=== PATIENT | female | born 1945 | race Caucasian/White ===

== ENCOUNTER → 2021-06-24 12:34 | Outpatient (CLI) | payer MEDICARE, OTHER, SELFPAY ==
[2021-06-24 13:43] LABS: Add Manual Diff / Slide Review NO; Basophils Absolute Auto 0 /uL (0-100); Basophils Percent Auto 0.8 % (0-2); Eosinophils Absolute Auto 200 /uL (0-450); Eosinophils Percent Auto 3.2 % (2-4); Hematocrit 36.8 % (36-46); Hemoglobin 12.4 g/dL (12.0-16.0); Lymphocytes Absolute Auto 1000 /uL (1100-4500); Lymphocytes Percent Auto 20.1 % (25-40); Mean Corpuscular HGB Conc 33.7 % (30-36); Mean Corpuscular Hemoglobin 30.1 PG (26-34); Mean Corpuscular Volume 89.4 fL (80-100); Monocytes Absolute Auto 400 /uL (0-900); Monocytes Percent Auto 7.1 % (3-14); Neutrophils Absolute Auto 3400 /uL (1500-7000); Neutrophils Percent Auto 68.8 % (50-75); Platelet Count 205 X10^3/uL (150-400); Red Blood Cell Count 4.12 X10^6/uL (4.0-5.2); Red Cell Distribution Width 14.5 % (11.6-14.8)
[2021-06-24 13:50] LABS: Hemoglobin A1C% w Est Avg Glu 5.3 % (4.0-6.0)
[2021-06-24 14:00] LABS: Appearance Urine UA SL CLOUDY; Bilirubin Urine UA NEGATIVE (NEGATIVE); Color Urine UA YELLOW; Glucose Urine UA NEGATIVE (Negative); Ketones Urine UA NEGATIVE (NEGATIVE); Leukocyte Esterase Urine UA 2+ (NEGATIVE); Nitrite Urine UA NEGATIVE (Negative); Occult Blood Urine UA NEGATIVE (Negative); Protein Urine UA TRACE (Negative); Urobilinogen Urine UA 0.2 E.U./dL (0.2)
[2021-06-24 14:02] LABS: pH Urine UA 5.5 (4.5-8.0)
[2021-06-24 14:13] LABS: BUN Creatinine Ratio 31.4 (6-22); Blood Urea Nitrogen 22 mg/dL (7-17); Calcium 8.9 mg/dL (8.4-10.2); Carbon Dioxide 30 mmol/L (22-32); Chloride 104 mmol/L (98-107); Estimated Glomerular Filt Rate > 60.0 mL/min (>60); Glucose 104 mg/dL (80-110); HEMOLYSIS < 15 (0-50); Potassium 4.1 mmol/L (3.4-5.1); Sodium 141 mmol/L (137-145)
[2021-06-24 14:14] LABS: Bacteria Urine Many (>30); Culture Indicated Urine Specimen Cultured; RBC Urine None Seen (0-5/HPF); Squamous Epithelial Cell Urine 0-1 /HPF (0-5/HPF); WBC Urine 10-30/HPF (0-5/HPF)
== END ==
PROVIDERS: PCP Physician Assistant; Referring Provider Orthopaedic Surgery; Visit Provider Orthopaedic Surgery
DX: Z01.818 Encounter for other preprocedural examination (principal); R73.9 Hyperglycemia, unspecified; Z01.812 Encounter for preprocedural laboratory examination; N39.0 Urinary tract infection, site not specified
CPT/HCPCS: 36415; 80048; 81001; 83036; 85025; 87086; 93005

== ENCOUNTER → 2021-08-17 11:08 | Outpatient (CLI) | payer MEDICARE, OTHER, SELFPAY ==
[2021-08-17 13:37] LABS: COVID19 -Nasal RAPID Negative (Negative)
== END ==
PROVIDERS: PCP Physician Assistant; Visit Provider Family Medicine Sleep Medicine
DX: Z20.822 Contact with and (suspected) exposure to COVID-19 (principal)
CPT/HCPCS: 87635; C9803

== ENCOUNTER 2021-08-18 11:30 | Inpatient (IN) | payer MEDICARE, OTHER, SELFPAY ==
[2021-08-17 08:38] VITALS: BMI 31.1
[2021-08-18] VITALS (37 sets, daily range): BP systolic 101–158; BP diastolic 55–97; PULSE 82–152; RESP 8–28; TEMP 35.9–36.7; O2SAT 91–100; BMI 31.1
--- NOTE | 2021-08-18 | DI.RAD.S_ITS ---
PROCEDURE: XR HIP W PEL IF DONE LT 2V INDICATIONS: POST OP TECHNIQUE: AP pelvis with AP and lateral views of the left hip. COMPARISON: [facility], CR, XR PELVIS WITH LATERAL HIP LEFT, 06/24/2020, 13:18. [facility] [place], CR, XR PELVIS WITH LATERAL HIP LEFT, 06/22/2021, 13:58. [facility], CR, XR HIP W PEL IF DONE LT 2V, 08/18/2021, 16:23. FINDINGS: Bones: There are postsurgical changes status post left hip arthroplasty with removal of the previously visualized intramedullary jonathon and telescoping screw in the left femoral neck. No definite acute fractures. There is a chronic displaced lesser trochanteric fracture fragment redemonstrated. No periprosthetic fractures. The right hip demonstrates moderate axial joint space narrowing. Pelvic ring appears intact. Soft tissues: Overlying postsurgical changes are demonstrated lateral to the left hip including soft tissue gas and multiple skin laura. IMPRESSION: 1. Postsurgical changes status post left hip arthroplasty as described. Dictated by: Massimo Fulton M.D. on 08/18/2021 at 23:29 Approved by: Massimo Fulton M.D. on 08/18/2021 at 23:31
[2021-08-18] MEDS: CELECOXIB 200 MG CAPSULE PO (12:05)
[2021-08-18] MEDS: PREGABALIN 75 MG CAPSULE PO (12:05)
[2021-08-18] MEDS: ACETAMINOPHEN 325 MG TABLET 975 MG PO (12:11)
[2021-08-18] MEDS: LACTATED RINGERS 1,000 ML 42 ML IV ×4 (12:35→19:47)
[2021-08-18] MEDS: VANCOMYCIN 1,000 MG/200 ML PIGGYBACK 200 MG IV (13:12)
--- NOTE | 2021-08-18 13:39 | PM.PREOP ---
Pre-operative Note COVID-19 COVID-19 status: Negative Interval Note History & Physical reviewed/Exam performed by Physician: Yes Changes to H&P: No
--- NOTE | 2021-08-18 13:40 | P.OP_ITS ---
Operative Date/Time/Diagnoses Date of procedure: 08/18/21 Time of procedure: 14:30 Pre-op diagnosis: Failed left hip ORIF, posttraumatic left hip arthritis history of left intertrochanteric fracture Post-op diagnosis: same Procedure & Clinicians Procedure: Left total hip arthroplasty, removal of retained internal fixation with concurrent version of previous hip surgery to total hip arthroplasty. Same procedure as scheduled: Yes Indications: This is a 75-year-old with a history of a left hip fracture about 15 months ago. She was treated at an outside hospital and had a nail placed for a comminuted intertrochanteric hip fracture. She had failure of fixation with Mimi of the lag screw through her femoral head and into the acetabulum. She noted that she had had about 15 months of incapacitating left leg pain with severe left leg shortening. She is brought the operating room for total hip arthroplasty with removal of internal fixation and reconstruction as needed. Surgeon: Isabel Eddy Traffic Ii Manager: Maya Dale Anesthesia Type: General and Spinal Operative Notes Findings: Comminuted left hip fracture with severe scarring and a malunion of the proximal femur, failure of fixation with a Mimi of the lag screw through the femoral head in into the acetabulum with an acetabular defect, adequate stability, some baptism of leg length, soft bone Closure Type: primary Specimen(s): other (Cultures) Prosthetic devices, grafts, tissues, transplants, or devices: Size 52 R3 cup, 40 x 52 dual mobility acetabulum, size 15 x 190 mm readapt femoral stem, +4 by 22 Oxinium dual mobility head, Applied: drain(s) Blood products transfused: none Procedure in detail: The patient was seen in the pre-operative area, where the patient identified the left hip as the operative site and this was marked with my initials. The patient received pre-operative antibiotics and was taken to the operating room and placed on the operative table in the right lateral decubitus position after satisfactory anesthesia. A corporate director talent assessment out was performed. The left leg was prepared from the ankle to the iliac crest with ChloroPrep in the usual fashion and draped through sterile drapes. The hip was approached through an approximately 24 cm incision centered over the greater trochanter and curving gently posteriorly as it went proximally. This was carried sharply to the fascia francisca, which was divided and retracted with a self retaining retractor. The trochanteric bursa was excised with care being taken to avoid the sciatic nerve, which was identified and protected throughout the case. She had significant scarring of her underlying fascia down to the greater trochanter consistent with her previous fracture repair. A more extensive incision was made in order to allow hardware removal. Deep Gelpi retractors were placed as well as a Charnley retractor. The proximal screw was identified. Fluoroscopy was brought in in order to allow identification of the proximal jonathon with minimal soft tissue destruction over the abductors. A needle was used and placed in the proximal aspect of the femoral jonathon. Bovie cautery was then used to dissect down to the femoral jonathon. Extraction device was appli ed. The screw was loosened in order to allow removal of the proximal lag screw. Lag screw was removed without difficulty. Fluoroscopy was then used to identify the distal interlocking screw which was also removed without difficulty. I did dissect proximally and dislocate the hip prior to jonathon removal. Short external rotators were incised and the capsulomuscular flap was raised and tagged for later repair. The hip was dislocated, and then reduced during jonathon removal. The jonathon was removed without difficulty. I then used my jonathon pathway into the canal in order to further define the canal and do partial canal prep. 12 mm Reamer was easily passed as the jonathon was larger than that. I then gently reamed up to a 14. Femoral neck osteotomy performed approximately 15 mm above the lesser trochanter. Retractors were placed around the femur. The canal was opened with a box cutting osteotome, followed by a T handled reamer and a lateralizing reamer. The findings the canal in the face of severe deformity was difficult. I actually at 1 point put the Reamer back down into the canal and then specifically used a combination of a box osteotome a curette and a rongeur to dissect laterally in the trochanteric region in order to clear all the bone overlying a straight shot to the canal. There was significant bony deformity in the canal. We then carefully passed a Reamer up to a size 14 down through more traditional approach to the canal and over reamed. There was technical issues with the over Reamer fitting on the canal and removing the insertion device from the Reamer. I checked with fluoroscopy to make sure that we had adequate cortical fit and that the planned Reamer was well positioned in the canal. Retractors were placed to expose the acetabulum. The labrum and central soft tissues were removed. Reaming was performed initially going up in 2 mm increments, then 1 mm increments until good bite was obtained with an odd sized reamer. The cup 1 mm larger than the last reamer was then inserted using the appropriate anteversion guides. A trial neutral liner was placed. We plan to proceed with dual mobility because of severe soft tissue scarring and deformity. The Reamer was placed back into the femur. It was over reamed in order to allow adequate insertion of the proximal body. With a deformity in the proximal femur was felt that our goal was predominantly more distal fixation. Our initial reduction showed that she was clearly too tight and she was felt to be a little bit too long. I further reamed and placed the prosthesis down an additional 3-4 mm. I used fluoroscopy during the procedure in order to visualize the location of the stem and canal fit. The body piece of the broach had technical difficulties and we were able to get initially a trial reduction but not final trial reduction prior to final implant selection. A trial head and neck were then placed and the hip relocated and checked for leg length and stability. Fluoroscopy was used to confirmed the component position and no evidence of fracture. The patient was stable in the position of sleep, of squatting, and could be put through a range of motion with 45 degrees internal rotation without dislocation. At 90 degrees flexion, internal rotation to 60? was possible before dislocation. This was felt to be satisfactory and the appropriate components were opened, and the trials were removed. The acetabular liner was impacted into position. The final stem was then impacted into the prepared femoral canal. A brief Betadine soak was performed while trialing with head options. The hip was meticulously irrigated with normal saline. Finally the femoral head was impacted onto the stem. The acetabulum was cleared of all material and the hip relocated one final time. The hole in the greater trochanter was bone grafted and a small lateral hole from the patient's previous lag screw was bone grafted. The procedure was technically demanding due to the patient's previous fracture and malunion with grossly distorted anatomy. Extensive fluoroscopy was required as well as careful mobilization of the tissue. The capsulomuscular flap was then repaired to the greater trochanter though an awl hole using the tag sutures. The short external rotators were repaired with a nonabsorbable suture. A deep drain was placed and brought out anteriorly. The fascia francisca was closed with Vicryl. The subcutaneous layer was closed with barbed sutures and SteriStrips. A maura dressing was applied and the patient was taken to recovery having tolerated the procedure well. Complications: other (Anesthesia felt the patient was in atrial fibrillation. She was stable during surgery but we felt that she needed to be monitored overnight in the ICU and hospitalist consult was attached obtained.) Post-operative Condition: stable Disposition: ICU Plan for aftercare: The patient will be maintained on a standard total hip replacement protocol with weight bearing as tolerated and posterior hip precautions. The patient will receive Aspirin and sequential compression devices for DVT prophylaxis. The patient will be discharged home when safe for the home environment. She was felt to have new onset atrial fibrillation. It was felt she required monitoring in the ICU over night and Dr. Hall from the hospitalist service was consulted.
--- NOTE | 2021-08-18 15:00 | DI.RAD.S_ITS ---
PROCEDURE: XR HIP W PEL IF DONE LT 2V INDICATIONS: prosthesis placement TECHNIQUE: 3 view(s) of the hip acquired. COMPARISON: [facility] [place], CR, XR PELVIS WITH LATERAL HIP LEFT, 06/22/2021, 13:58. [facility], CR, XR HIP W PEL IF DONE LT 2V, 08/18/2021, 21:39. FINDINGS: Intraoperative images of the left hip arthroplasty. IMPRESSION: Intraoperative guidance provided. Dictated by: Hi Martínez M.D. on 08/19/2021 at 8:24 Approved by: Hi Martínez M.D. on 08/19/2021 at 8:24
[2021-08-18] MEDS: CEFAZOLIN 2 GM/20 ML SYRINGE IV ×3 (15:20→23:12)
[2021-08-18] MEDS: TRANEXAMIC ACID 1,000 MG VIAL 1000 MG INJ ×2 (15:25→19:56)
--- NOTE | 2021-08-18 16:22 | SUR.OPER ---
Lateral on padded OR bed. Gel axillary roll. Arms secured on padded armboard with 2 pillows supporting top arm, with tape over sheet to secure arms. Padded hip positioner braces x4 - anterior and posterior chest and pelvis. Additional gel pad used anterior pelvis. Gel pad under bottom leg from knee to foot and secured with tape over sheet.
[2021-08-18] MEDS: BUPIVACAINE LIPOSOME 266 MG/20 ML VIAL INJ (16:24)
[2021-08-18] MEDS: BUPIVACAINE 0.25% (PF) 60 ML, EPINEPHrine 0.3 MG INJ (16:42)
[2021-08-18] MEDS: SODIUM CHLORIDE IRRIG SOLUTION 250 ML, EPINEPHrine 1 MG IRR (16:46)
--- NOTE | 2021-08-18 16:58 | SUR.OPER ---
Sent specimen Left hip deep membrane for culture and sensitivity.
[2021-08-18] MEDS: SODIUM CHLORIDE IRRIG SOLUTION 250 ML, POVIDONE-IODINE SPONGE STICKS 1 APPLIC IRR (20:00)
--- NOTE | 2021-08-18 21:39 | DI.RAD.S_ITS ---
PROCEDURE: XR CHEST 1V INDICATIONS: post op TECHNIQUE: One view of the chest was acquired. COMPARISON: None. FINDINGS: Surgical changes and devices: None. Lungs and pleura: There is hyperinflation of the lungs with flattening of the hemidiaphragms compatible with COPD. No acute consolidation No pleural effusions or pneumothorax. Mediastinum: There is a suspected hiatal hernia.. Heart size is borderline enlarged. Bones and chest wall: No suspicious bony lesions. Overlying soft tissues appear unremarkable. IMPRESSION: 1. Findings compatible with COPD. No definite acute cardiopulmonary disease. Dictated by: Massimo Fulton M.D. on 08/18/2021 at 23:36 Approved by: Massimo Fulton M.D. on 08/18/2021 at 23:37
--- NOTE | 2021-08-18 21:45 | P.CONS_ITS ---
History of Present Illness Consult details Date Patient Seen: 08/18/21 Time Patient Seen: 21:45 Chief complaint: LT NORM 08/18 *OPB* Narrative: This is a 75-year-old female with anxiety, depression, GERD, hyperlipidemia, hypertension, hypothyroidism and a TIA who presents from the operating room after a prolonged left hip replacement/revision this evening. She experienced a hip fracture after a fall 15 months ago and underwent an open reduction internal fixation with surgeons at [facility] at that time. Subsequently she has had deterioration of the repair and required revision with a new hip replacement. She was in surgery for 5-6 hours today and about midway through the surgery went from sinus rhythm into atrial fibrillation with rapid shakeel tricular response. She was treated with Eugenio-Synephrine, small doses, for the last few hours of surgery due to hypotension that was thought to be anesthesia related. Her preop EKG was sinus rhythm with PACs and normal ST segment appearances. Her postop EKG today shows atrial fibrillation with a rate of [address] and T segment abnormalities suggesting lateral ischemia. The T-waves are inverted now in leads V4, V5 and V6. She is not having any chest pain and is not feeling the palpitations or tachycardia. She appears to be quite pale and anemic and has estimated blood loss of 600 mL during the surgery. Meds Home Medications and Allergies Home Medications Medication Instructions Recorded Confirmed Type amlodipine 5 mg tablet 5 mg PO DAILY 08/17/21 08/18/21 History aspirin 81 mg tablet,delayed 81 mg PO DAILY 08/17/21 08/18/21 History release atorvastatin 40 mg tablet 40 mg PO DAILY 08/17/21 08/18/21 History cetirizine 10 mg tablet (Zyrtec) 10 mg PO DAILY PRN 08/17/21 08/17/21 History escitalopram oxalate 20 mg tablet 20 mg PO DAILY 08/17/21 08/18/21 History levothyroxine 150 mcg tablet 150 mcg PO SEEINSTR 08/17/21 08/18/21 History (Synthroid) metoprolol succinate 50 mg 25 mg PO BID 08/17/21 08/18/21 History tablet,extended release 24 hr omeprazole 20 mg capsule,delayed 40 mg PO QAM 08/17/21 08/18/21 History release sumatriptan succinate 100 mg tablet 100 mg PO DAILY PRN 08/17/21 08/17/21 History Allergies Allergy/AdvReac Type Severity Reaction Status Date / Time No Known Drug Allergies Allergy Verified 08/18/21 11:41 Review of Systems Review of Systems Narrative: Positive for weakness, left hip pain, pale color Negative for fevers, chills, sweats, chest pain, palpitations, nausea, vomiting, abdominal pain, rashes, seizures, headaches, new allergies, dysuria Exam Vital Signs (past 8 hours): - 08/18/21 21:20 Temperature 97.8 F Pulse Rate 143 H Respiratory Rate 13 Blood Pressure 109/80 Pulse Oximetry 97 Oxygen Delivery Method Room Air Oxygen Flow Rate 4 Narrative Exam Narrative: She is alert and oriented x3. She appears weak but in no apparent distress Sclerae are pale and nonicteric Pupils are equally round and reactive to light and accommodation Extraocular muscles are intact Throat looks normal No lymph nodes are felt head, neck, supraclavicular area JVD is less than 6 cm No carotid bruits are heard Heart is irregularly tachycardic without murmur Lungs are clear to auscultation bilaterally Abdomen is soft, bowel sounds positive, nontender, no organomegaly Extremities have no ankle edema There is a clean dressing without signs of bleeding or infection or excessive tenderness on the left hip. Skin has no rash or jaundice Neurological exam the patient is alert and oriented x3. There is no tremor Cranial nerves 2-12 test intact Motor function appears to be intact at 3/5 throughout. Deep tender reflexes are hypoactive symmetrically. Objective Labs Result Diagrams: 08/18/21 21:40 08/18/21 21:40 [facility] Medical History Anxiety Depression Easy bruisability GERD (gastroesophageal reflux disease) HLD (hyperlipidemia) HTN (hypertension) Hypothyroidism Seasonal allergies TIA (transient ischemic attack) (02/2020) Wrist fracture (01/2019) Surgical History History of bladder surgery (2003) History of hip surgery (04/2020) Hx of bilateral cataract extraction Hx of cholecystectomy (12/2019) Social History household members: family Tobacco & Substance Use Smoking Status: Former smoker alcohol intake: former Assessment & Plan Assessment & Plan narrative: This is a 75-year-old female with anxiety, depression, GERD, hyperlipidemia, hypertension, hypothyroidism and a TIA who presents from the operating room after a prolonged left hip replacement/revision this evening. She was in surgery for 5-6 hours today and about midway through the surgery went from sinus rhythm into atrial fibrillation with rapid ventricular response. She appears to be quite pale and anemic and has estimated blood loss of 600 mL during the surgery. Cardiac ischemia, present on admission to the intensive care unit. Active. -troponin is pending. Once that returns we will discuss management with Cardiology and/or Tele ICU. -she is not a candidate for heparin due to her extensive surgery at this time. -she is not having chest pain -the EKG ischemic changes are likely related to a combination of blood loss anemia, demand ischemia of rapid ventricular response and possible pre-existing coronary artery disease. Atrial fibrillation with rapid ventricular response, present on admission to the intensive care unit. Active. -this appears to be a new phenomena precipitated by blood loss anemia and anes thesia during a prolonged hip replacement surgery. -due to mild hypotension, possible ischemia and possible anemia she is pending further interventions after discussion with Cardiology -plan echocardiogram Left hip replacement/revision on 08/18 per orthopedics, present on admission to the intensive care unit. Active. -suspect blood loss anemia with CBC pending -orthopedics following Hyperlipidemia, present on admission. Chronic. -continue atorvastatin Hypothyroidism, present on admission. Chronic. -continue levothyroxine GERD, present on admission. Chronic. -continue omeprazole Migraine headaches, present on admission. Chronic. -holding Imitrex prn pending clarification of cardiac status Depression, present on admission. Chronic. -continue escitalopram. Her daughter, Meenu Verdugo is her backup decision maker. -she is not a candidate for anticoagulation at this time after her extensive hip surgery and related blood loss. Time Spent With Patient Critical Care time: I spent a total of [] minutes of critical care time on this patient's care today; this time is exclusive of procedural time.
[2021-08-18 21:59] LABS: Hematocrit 35.3 % (36-46); Hemoglobin 11.8 g/dL (12.0-16.0); Mean Corpuscular HGB Conc 33.5 % (30-36); Mean Corpuscular Hemoglobin 29.7 PG (26-34); Mean Corpuscular Volume 88.5 fL (80-100); Red Blood Cell Count 3.98 X10^6/uL (4.0-5.2); Red Cell Distribution Width 14.3 % (11.6-14.8); White Blood Cell Count 14.3 X10^3/uL (4.5-11.0)
[2021-08-18] MEDS: dilTIAZem 5 MG/ML SDV 20 MG IV (22:01)
[2021-08-18 22:03] LABS: BUN Creatinine Ratio 24.2 (6-22); Blood Urea Nitrogen 16 mg/dL (7-17); Calcium 7.9 mg/dL (8.4-10.2); Carbon Dioxide 21 mmol/L (22-32); Chloride 104 mmol/L (98-107); Creatine Kinase 228 U/L (30-135); Estimated Glomerular Filt Rate > 60 mL/min (>60); Glucose 194 mg/dL (80-110); HEMOLYSIS 26 (0-50); Potassium 3.9 mmol/L (3.4-5.1); Sodium 136 mmol/L (137-145)
--- NOTE | 2021-08-18 22:10 | SUR.PHASEI ---
Late entry from 2120: transferred patient from OR surgical suite to ICU 231 with anesthesia and OR staff on continuous cardiac monitoring due to Afib with RVR; EBL approximately 1000; patient drowsy but arousable on transfer. Denies surgical pain, cp or SOB; report given to Christa CORTEZ in ICU. Family at bedside. Recovery completed by PACU nurse in ICU room 231 in accordance with hospital policy.
[2021-08-18 22:15] LABS: Platelet Count 210 X10^3/uL (150-400); Troponin I < 0.012 ng/mL (0.01-0.034)
[2021-08-18 22:17] LABS: CKMB % Relative Index 1.1 % (1.5-5.0); Creatine Kinase MB 2.48 ng/mL (<2.37)
[2021-08-18] MEDS: LACTATED RINGERS 1,000 ML 125 ML IV (22:32)
--- NOTE | 2021-08-18 22:32 | DI.ECHO.S_ITS ---
[place] +---------+ Hospital +---------+ : : [address] : : : : [id number] : : : : Phone: [phone]---------+ Echocardiogram Report + + :Name: LYNNE ARTHUR Study Date: 08/19/2021 Height: 68 in : :[facility] ReadingLocation: Weight: 205 lb : : Gender: Female BSA: 2.1 m2 : :: 1945 Age: 75 yrs BP: 126/72 mmHg: :Reason For Study: Atrial fibrillation : :Ordering Physician: TAMANNA, : :PAULA Verdugo Performed By: Toni Melton : :Referring: PAULA NOLEN : + + Interpretation Summary The left ventricle is normal in size. The ejection fraction is estimated to be 55-60%. The right ventricle is borderline dilated. The right ventricular systolic function is normal. There is mild mitral regurgitation. There is mild tricuspid regurgitation. Right ventricular systolic pressure is estimated to be 22 mmHg plus the clinically estimated CVP which cannot be estimated on this exam. Procedure: A two-dimensional transthoracic echocardiogram with color flow and Doppler was performed. The study quality was technically adequate. There is no prior echocardiogram noted for this patient. The patient was in atrial fibrillation with controlled ventricular rate during the exam. Left Ventricle: The left ventricle is normal in size. There is mild concentric left ventricular hypertrophy. There is no thrombus. Left ventricular systolic function is normal. The ejection fraction is estimated to be 55-60%. There are no focal wall motion abnormalities. Diastolic function could not be accurately assessed due to atrial fibrillation. Right Ventricle: The right ventricle is borderline dilated. The right ventricular systolic function is normal. Atria: The left atrium is severely dilated. The right atrium is mildly dilated. Mitral Valve: The mitral valve leaflets are slightly calcified. There is mild mitral annular calcification. There is mild mitral regurgitation. Aortic Valve: The aortic valve is normal in structure and function. The aortic valve is trileaflet. There is no aortic valve stenosis. There is trace aortic regurgitation. Tricuspid Valve: The tricuspid valve is normal. There is mild tricuspid regurgitation. Right ventricular systolic pressure is estimated to be 22 mmHg plus the clinically estimated CVP which cannot be estimated on this exam. Pulmonic Valve: The pulmonic valve is not well seen, but is grossly normal. There is no pulmonic valvular regurgitation. Great Vessels: The aortic root is normal size. The dimensions of the ascending aorta are normal. The inferior vena cava was not visualized. Pericardium/ Pleura There is no pericardial effusion. There is no pleural effusion. MMode/2D Measurements & Calculations LVIDd: 4.0 cm LVOT diam: 2.0 cm LVIDs: 2.7 cm Ao root diam: 3.2 cm FS: 33.0 % asc Aorta Diam: 3.1 cm IVSd: 1.1 cm LVPWd: 0.97 cm LV macias. diameter/BSA (cm/m^2): 1.9 LV sys. diameter/BSA (cm/m^2): 1.3 LA A2 area: 25.7 cm2 RA long axis: 5.1 cm LA A4 area: 26.0 cm2 RA area: 19.7 cm2 LA length (vol): 6.2 cm RA vol: 65.6 ml LA vol: 91.0 ml RA : 31.8 ml/m2 LA vol index: 44.0 ml/m2 TAPSE: 2.4 cm Doppler Measurements & Calculations Ao V2 max: 103.6 cm/sec LVOT Max Jaziel: 75.7 cm/sec Ao V2 mean: 70.7 cm/sec LV V1 max P.3 mmHg Ao max P.3 mmHg LV V1 VTI: 13.7 cm Ao mean P.2 mmHg CJ(I,D): 2.4 cm2 Ao V2 VTI: 17.8 cm CJ(V,D): 2.3 cm2 sev ratio: 0.77 CJ indexed to BSA (cm^2/m^2): 1.2 TR max jaziel: 235.3 cm/sec SV(LVOT): 43.2 ml TR max P.2 mmHg Reading Physician:09:13 AM
[2021-08-18] MEDS: ONDANSETRON 4 MG/2 ML INJ IV (23:07)
[2021-08-18] MEDS: DILTIAZEM 125 MG/125 ML PIGGYBACK IV (23:08)
[2021-08-18] MEDS: ASPIRIN EC 81 MG TABLET PO (23:15)
[2021-08-18] MEDS: METOPROLOL ER 50 MG TABLET 25 MG PO (23:15)
[2021-08-18] MEDS: DOCUSATE 100 MG CAPSULE PO (23:15)
[2021-08-19] VITALS (19 sets, daily range): BP systolic 106–134; BP diastolic 63–82; PULSE 79–94; RESP 9–24; TEMP 36.2–36.9; O2SAT 95–100
--- NOTE | 2021-08-19 00:05 | PM.CN.EICU ---
History of Present Illness Consult details Date Patient Seen: 08/19/21 Chief complaint: LT NORM 08/18 *OPB* Reason for consult: ICU admission Patient Location: ICU Provider location (State): [place] Narrative: Admitted from OR w. prolonged L THR w/ EBL of 600 mL, ischemic EKG changes and rapid AF. Required phenylephrine in OR. HR in 70s on diltiazem 5 mg/hr and saturating 100% on 2L NC on initial assessment. Initial Hgb 11 w/ (-) initial troponin I. PMHx: GERD, HTN, HLD, hypothyroidism. [facility] Medical History Anxiety Depression Easy bruisability GERD (gastroesophageal reflux disease) HLD (hyperlipidemia) HTN (hypertension) Hypothyroidism Seasonal allergies TIA (transient ischemic attack) (02/2020) Wrist fracture (01/2019) Surgical History History of bladder surgery (2003) History of hip surgery (04/2020) Hx of bilateral cataract extraction Hx of cholecystectomy (12/2019) Social History household members: family Smoking Status: Former smoker alcohol intake: former Current Medications Current Medications Medications: Home Medications amlodipine 5 mg tablet 5 mg PO DAILY 08/17/21 [History Confirmed 08/18/21] aspirin 81 mg tablet,delayed release 81 mg PO DAILY 08/17/21 [History Confirmed 08/18/21] atorvastatin 40 mg tablet 40 mg PO DAILY 08/17/21 [History Confirmed 08/18/21] cetirizine 10 mg tablet (Zyrtec) 10 mg PO DAILY PRN 08/17/21 [History Confirmed 08/17/21] escitalopram oxalate 20 mg tablet 20 mg PO DAILY 08/17/21 [History Confirmed 08/18/21] levothyroxine 150 mcg tablet (Synthroid) 150 mcg PO SEEINSTR 08/17/21 [History Confirmed 08/18/21] metoprolol succinate 50 mg tablet,extended release 24 hr 25 mg PO BID 08/17/21 [History Confirmed 08/18/21] omeprazole 20 mg capsule,delayed release 40 mg PO QAM 08/17/21 [History Confirmed 08/18/21] sumatriptan succinate 100 mg tablet 100 mg PO DAILY PRN 08/17/21 [History Confirmed 08/17/21] Visit Medications (administered) Generic Name Dose Route Start Last Admin Trade Name Willie PRN Reason Stop Dose Admin Acetaminophen 650 mg 08/19/21 00:00 08/19/21 00:03 Acetaminophen 325 Mg Tablet PO Not Given Q6HR ALLI Aspirin 81 mg 08/18/21 22:15 08/18/21 23:15 Aspirin Ec 81 Mg Tablet PO 81 mg BID ALLI Administration Cefazolin Sodium/Dextrose 2 gm 08/18/21 22:15 08/18/21 23:12 Cefazolin 2 Gm/20 Ml Syringe IV 08/19/21 06:16 2 gm Q8H ALLI Administration Docusate Sodium 100 mg 08/18/21 22:15 08/18/21 23:15 Docusate 100 Mg Capsule PO 100 mg BID ALLI Administration Lactated Ringer's 1,000 mls @ 42 mls/hr 08/18/21 12:34 08/18/21 19:47 Lactated Ringers IV 08/19/21 12:22 42 mls/hr NOW ONE Administration Lactated Ringer's 1,000 mls @ 125 mls/hr 08/18/21 22:15 08/18/21 22:32 Lactated Ringers IV 125 mls/hr CONT ALLI Administration DILTIAZEM 125 mg in 125 mls @ 5 mls/hr 08/18/21 22:30 08/18/21 23:08 Diltiazem 125 Mg/125 Ml-D5w IV 5 mg/hr TITRATE ALLI 5 mls/hr Administration Protocol 5 MG/HR Ibuprofen 400 mg 08/19/21 00:00 08/19/21 00:03 Ibuprofen 400 Mg Tablet PO Not Given Q6HR ALLI Metoprolol Succinate 25 mg 08/18/21 22:15 08/18/21 23:15 Metoprolol Er 50 Mg Tablet PO 25 mg BID ALLI Administration Ondansetron HCl 4 mg 08/18/21 22:15 08/18/21 23:07 Ondansetron 4 Mg/2 Ml Inj IV 4 mg Q4HR PRN Administration Nausea And Vomiting Exam Vital Signs (past 8 hours): - 08/18/21 21:20 08/18/21 21:21 08/18/21 21:30 Temperature 97.8 F Pulse Rate 143 H 124 H 131 H Respiratory Rate 13 16 11 L Blood Pressure 109/80 101/66 113/78 Pulse Oximetry 97 96 96 08/18/21 21:35 08/18/21 21:40 08/18/21 21:41 Temperature Pulse Rate 138 H 140 H 146 H Respiratory Rate 16 12 11 L Blood Pressure 140/97 H Pulse Oximetry 100 98 91 08/18/21 21:42 08/18/21 21:45 08/18/21 21:46 Temperature Pulse Rate 142 H 148 H 152 H Respiratory Rate 11 L 28 H 19 Blood Pressure 140/97 H 120/83 120/83 Pulse Oximetry 99 100 99 08/18/21 21:50 08/18/21 21:55 08/18/21 22:00 Temperature Pulse Rate 141 H 137 H 132 H Respiratory Rate 17 17 12 Blood Pressure 136/95 H 158/91 H 130/66 Pulse Oximetry 100 98 100 08/18/21 22:01 08/18/21 22:05 08/18/21 22:10 Temperature 97.9 F Pulse Rate 131 H 137 H 140 H Respiratory Rate 11 L 13 14 Blood Pressure 130/66 128/77 130/82 Pulse Oximetry 100 99 100 08/18/21 22:15 08/18/21 22:20 08/18/21 22:25 Temperature 97.1 F L Pulse Rate 136 H 133 H 132 H Respiratory Rate 19 14 13 Blood Pressure 123/63 126/59 L 123/66 Pulse Oximetry 100 95 96 08/18/21 22:30 08/18/21 22:35 08/18/21 22:40 Temperature Pulse Rate 134 H 133 H 131 H Respiratory Rate 12 12 8 L Blood Pressure 127/59 L 105/55 L 116/64 Pulse Oximetry 100 100 100 08/18/21 22:45 08/18/21 22:53 08/18/21 22:55 Temperature Pulse Rate 136 H 138 H 136 H Respiratory Rate 10 L 13 14 Blood Pressure 116/78 115/71 114/76 Pulse Oximetry 98 100 100 08/18/21 23:00 Temperature Pulse Rate 119 H Respiratory Rate 20 Blood Pressure 119/69 Pulse Oximetry 100 Oxygen Delivery Method Nasal Cannula Oxygen Flow Rate 4 Narrative Exam Narrative: sleeping comfortablu Resp Effort & Inspection: normal respiratory effort Cardio Rate: regular rate Objective Labs Result Diagrams: 08/18/21 21:40 08/18/21 21:40 Labs: Laboratory Results - last 24 hr 08/18/21 08/18/21 08/18/21 21:40 21:40 22:00 WBC 14.3 H RBC 3.98 L Hgb 11.8 L Hct 35.3 L MCV 88.5 MCH 29.7 MCHC 33.5 RDW 14.3 Plt Count 210 Sodium 136 L Potassium 3.9 Chloride 104 Carbon Dioxide 21 L BUN 16 Creatinine 0.66 Estimated GFR > 60 BUN/Creatinine Ratio 24.2 H Glucose 194 H Calcium 7.9 L Total Creatine Kinase 228 H CK-MB (CK-2) 2.48 H CK-MB (CK-2) Rel Index 1.1 L Troponin I < 0.012 Blood Type O Negative Antibody Screen Negative Assessment & Plan Assessment and plan (1) Atrial fibrillation: Status: Acute Plan: -Continue diltiazem -Follow up 2-D echo -TSH ordered (2) Acute blood loss anemia: Status: Acute Plan: -Trend (3) Hypothyroidism: Status: Acute Plan: -Awaiting TFTs (4) Status post hip replacement: Status: Acute Plan: -As per ortho
[2021-08-19] MEDS: PANTOPRAZOLE DR 40 MG TABLET PO (06:02)
[2021-08-19] MEDS: IBUPROFEN 400 MG TABLET PO ×3 (06:02→18:32)
[2021-08-19] MEDS: ACETAMINOPHEN 325 MG TABLET 650 MG PO ×3 (06:02→18:32)
[2021-08-19] MEDS: LEVOTHYROXINE 150 MCG TABLET PO (06:02)
[2021-08-19] MEDS: CEFAZOLIN 2 GM/20 ML SYRINGE IV (06:02)
[2021-08-19] MEDS: LACTATED RINGERS 1,000 ML 125 ML IV (06:04)
[2021-08-19 06:13] LABS: Add Manual Diff / Slide Review NO; Basophils Absolute Auto 0 /uL (0-100); Eosinophils Absolute Auto 0 /uL (0-450); Hematocrit 32.5 % (36-46); Hemoglobin 10.9 g/dL (12.0-16.0); Lymphocytes Absolute Auto 600 /uL (1100-4500); Lymphocytes Percent Auto 5.1 % (25-40); Mean Corpuscular HGB Conc 33.6 % (30-36); Mean Corpuscular Hemoglobin 29.6 PG (26-34); Mean Corpuscular Volume 88.1 fL (80-100); Monocytes Absolute Auto 500 /uL (0-900); Monocytes Percent Auto 4.4 % (3-14); Neutrophils Absolute Auto 10000 /uL (1500-7000); Neutrophils Percent Auto 90.5 % (50-75); Platelet Count 179 X10^3/uL (150-400); Red Blood Cell Count 3.69 X10^6/uL (4.0-5.2); Red Cell Distribution Width 14.5 % (11.6-14.8)
[2021-08-19] MEDS: ONDANSETRON 4 MG/2 ML INJ IV (06:22)
--- NOTE | 2021-08-19 06:26 | PC.NURSE ---
Patient experienced nausea and emesis immediately after receiving both doses of Ceftriaxone.
[2021-08-19 06:27] LABS: Troponin I < 0.012 ng/mL (0.01-0.034)
[2021-08-19 06:52] LABS: TSH w/ Reflex to FT4 1.07 uIU/mL (0.47-4.68)
[2021-08-19] MEDS: OXYCODONE IR 5 MG TABLET PO (08:03)
[2021-08-19] MEDS: METOPROLOL ER 50 MG TABLET 25 MG PO ×2 (08:30→20:47)
[2021-08-19] MEDS: ASPIRIN EC 81 MG TABLET PO ×2 (08:30→20:47)
[2021-08-19] MEDS: ESCITALOPRAM 10 MG TABLET 20 MG PO (08:31)
[2021-08-19] MEDS: ATORVASTATIN 20 MG TABLET 40 MG PO (08:31)
[2021-08-19] MEDS: DOCUSATE 100 MG CAPSULE PO ×2 (08:31→20:47)
--- NOTE | 2021-08-19 09:50 | PM.ICURNDS ---
- :: This patient was seen via real time interactive two-way audiovisual telecommunication. Note: Transferred to ICU for A fib w. RVR post hip replacement. On Diltiazem 5 mg/hr. TTE showed preserved LV function, borderline RV dilation, and dilated LA. HR down to high 90s and low 100s. Will continue metoprolol 25 mg XL and titrate down diltiazem infusion to maintain HR < 110. High lytes goal. Check Mg level. D/w RN and pharmacy at bedside.
[2021-08-19 10:27] LABS: Magnesium 1.8 mg/dL (1.6-2.3)
--- NOTE | 2021-08-19 10:27 | PT.IIE ---
Current Diagnoses Acute posthemorrhagic anemia (08/18/21) Hypothyroidism, unspecified (08/18/21) Unspecified atrial fibrillation (08/18/21) Unilateral post-traumatic osteoarthritis, left hip (08/18/21) Fracture of unspecified part of neck of left femur, subsequent encounter for closed fracture with malunion (08/18/21) Presence of unspecified artificial hip joint (08/18/21) Surgery Performed Operation Date: 08/18/21 13:30 Actual Procedures p Total Hip Arthroplasty, removal of internal fixation(Left) - Isabel Eddy MD Medical History (Last Reviewed 08/19/21 @ 00:07 by José Miguel Ji MD) Anxiety Depression Easy bruisability GERD (gastroesophageal reflux disease) HLD (hyperlipidemia) HTN (hypertension) Hypothyroidism Seasonal allergies TIA (transient ischemic attack) (02/2020) Wrist fracture (01/2019) Physical Therapy Inpatient Evaluation/Re-Eval M1 PT/OT-IP Prior Functional Status Start: 08/19/21 10:15 Freq: Status: Active Protocol: Document 08/19/21 10:15 BC (Rec: 08/19/21 10:26 [id number]) Medical Review Prior Functional Status Medical History Reviewed Yes Mobility and Gait Use of FWW last 15 mo due to hip fx ORIF; prior to was independent with ambulation Activities of Daily Living and IADL's Independent Prior Functional Level (Other details) Lives with dtr who can assist as needed. Dtr taking time off work at d/c Social History Household Members family Living Arrangements House Number of Floors (Floors) One Floor Number of Stairs To Enter/Railing? level Home Environment High Toilet,Walk in Shower, Ramp Home Equipment Front Wheel Walker,Straight Cane,Bedside Commode,Shower Seat without Backrest,Hand Held Shower,Preparation Supervisor Canning,Grab Bars Near Toilet,Grab Bars In Shower M2 PT-IP Current Condition Start: 08/19/21 10:15 Freq: Status: Active Protocol: Document 08/19/21 10:15 BC (Rec: 08/19/21 10:26 [id number]) Physical Therapy Current Condition Current Condition Evaluation Date 08/19/21 Treatment Diagnosis R NORM posterior; difficulty with ambulation Onset Date 08/18/21 M3 PT-IP Subjective Start: 08/19/21 10:15 Freq: Status: Active Protocol: Document 08/19/21 10:15 BC (Rec: 08/19/21 10:26 [id number]) Subjective Physical Therapy Visit Type Type Initial Evaluation Visit Start Time 09:35 Visit Stop Time 10:10 Total Visit Minutes 31 Physical Therapy Visit Comments Patient Comments Pt with good questions regarding precautions. Has been working with PT prior to sx. Patient Goals Walk without walker Therapy Pain Assessment Pain When Pain Assessed At Rest Pain Present Pain Present Pain Reported Location Left Hip Intensity 3 Scale Used Numeric (0 - 10) Description Acute M4 PT-IP Mobility and Gait Start: 08/19/21 10:15 Freq: Status: Active Protocol: Document 08/19/21 10:15 BC (Rec: 08/19/21 10:26 [id number]) PT-Bed Mobility Assessment Supine to Sit Supine to Sit Standby Assistance Sit to Supine Sit to Supine Contact Guard Assistance Scooting Scooting to Edge of Bed Standby Assistance PT-Transfer Assessment Sit to and From Stand Sit to and from Stand Standby Assistance,Contact Guard Assistance Equipment Transfer Assistive Device Gait Belt,Front Wheeled Walker Transfers Transfer Destination Bed Transfer Technique side stepping Transfer Ability Level of Assist Minimal Assistance Comments Mobility Comments STS x3 reps with CGA to SBA. Cues and education on maintaining hip prec with STS. In standing, completed lateral weight shifts and mini marching. LLE with difficulty maintaining SLS stability. Pt able to take 4 side steps along EOB bilaterally before feeling weak and light headed. Assisted back to bed. Gait Assessment Comments Gait Comments Did not attempt ambulation away from bed due to symptoms of feeling faint and difficulty keeping LLE knee extended in pre-gait activities. PT-Balance Assessment Sitting Balance and Reactions Static Sitting Balance Ability Normal Dynamic Sitting Balance Ability Normal Standing Balance and Reactions Static Standing Balance Ability Fair Dynamic Standing Balance Ability Fair Device Used FWW M5 PT-IP Objective Assessments Start: 08/19/21 10:15 Freq: Status: Active Protocol: Document 08/19/21 10:15 BC (Rec: 08/19/21 10:26 [id number]) Orientation Orientation/Cognition Level of Alertness Alert Orientation Name,Age,Birthday,Month,Date, Year,Day of Week,Place, Situation Language Function Ability No Deficits Noted Gross Range of Motion Upper Extremity ROM Assessment Within Functional Limits Lower Extremity ROM Assessment Left Impaired Impairments L hip grossly WFL withing parameters of hip precaution. Strength Upper Extremity Strength Assessment Within Functional Limits Lower Extremity Strength Assessment Left Impaired Hip 3 Knee 5 Ankle 5 Coordination Assessment Gross Coordination Gross Coordination WNL Sensation Assessment Sensation Gross Sensation WNL M6 PT-IP Treatment Start: 08/19/21 10:15 Freq: Status: Active Protocol: Document 08/19/21 10:15 BC (Rec: 08/19/21 10:26 [id number]) Physical Therapy Treatment Education Education Provided Precautions,Weight Bearing Status,Post-Op Packet,Safety Other Treatments Other Treatment Performed Education on THP and functional mobility education in terms of bed mobility, rolling, car transfers. M7 PT-IP Assessment and Plan Start: 08/19/21 10:15 Freq: Status: Active Protocol: Document 08/19/21 10:15 BC (Rec: 08/19/21 10:26 [id number]) PT Summary Assessment and Plan Potential Rehabilitation Potential Excellent Status of Condition at Evaluation Stable Summary Impairments Pain,ROM,Strength,Balance, Transfers,Gait Progress Towards Goals Progressing Toward Goals Assessment Summary Pt admitted to complete L NORM 15 mo following L hip ORIF from [facility]. The ORIF failed and she required NORM intervention. Pt states she has been using a FWW or A.D. for 15 mo due to pain and instability. She lives with her dtr in a fully accessible home (due to disabled spouse). Pt has all needed DME for mobility at home. Her dtr is going to take time off work to support her at d/c. Pt's CLOF: Requiring just SBA to CGA for bed mobility, sit to stand transfers and pre-gait activity at bedside. We did not progress to gait for several reasons including faint feeling (BP sitting 114/ 62; BP after reports of dizzy/ faint 116/50); difficulty maintaining good quad control in pre-gait WB activities, and in ICU due to telemetry needs /cardiac status. Anticipate that Pt will progress well with PT given her CLOF today. As she is able to tolerate more activity we will progress ambulation. Recommend d/c home with dtr support and OPPT . Goals Bed Mobility Goal Independent Transfer Goal Independent,Standby Assistance Gait Goal Independent,Standby Assistance Gait Distance 100 Days to Meet Goals 4 Frequency of Treatment Frequency Of Treatment Twice a Day Treatment Plan Physical Therapy Treatment Plan Bed Mobility Training,Transfer Training,Gait Training, Therapeutic Exercise,Balance Retraining,Post Op Education, Discharge Planning, Neuromuscular Re-ed, Coordination Retraining Precautions Posterior Hip Precautions No Hip Flexion > 90 degrees,No Hip Internal Rotation,No Hip Adduction Weight Bearing Status Weight Bearing Status Weight Bear as Tolerated Recommendations To Nursing Amount of Assist Needed 1 Person Assist Discharge Recommendations PT Discharge Recommendations Home with Assistance, Outpatient PT Transportation Needs at Discharge Private Vehicle
[2021-08-19] MEDS: BENZOCAINE/MENTHOL 1 LOZ PKT 1 EACH PO (10:59)
--- NOTE | 2021-08-19 11:48 | P.PN_ITS ---
Subjective Subjective Date Patient Seen: 08/19/21 Time Patient Seen: 11:49 Interval history: Patient is complaining of moderate left hip pain this morning. Tylenol and oxycodone 5 mg are helping significantly with the pain. She is currently in ICU. She notes she is lightheaded and somewhat dizzy when she is standing. She denies any new numbness or tingling. Patient underwent a left hip revision yesterday with AFib noted intraoperatively. The risky make changes on her EKG, and therefore she was transported to the ICU postoperatively. Exam Vital Signs (past 8 hours): - 08/19/21 04:00 08/19/21 04:30 08/19/21 05:00 Temperature Pulse Rate 82 83 80 Respiratory Rate 10 L 10 L 11 L Blood Pressure 129/72 120/69 126/72 Pulse Oximetry 100 100 100 08/19/21 08:00 08/19/21 10:31 Temperature 98.4 F Pulse Rate 85 Respiratory Rate 18 Blood Pressure 108/73 Pulse Oximetry 96 95 Oxygen Delivery Method Room Air Oxygen Flow Rate 4 Narrative Exam Narrative: Pleasant 75-year-old female, resting comfortably in bed, no acute distress. Dressing is clean, dry, intact. Hemovac has put out 200 cc in the last shift. Bilateral lower extremity: Motor functions are grossly intact, sensation is grossly intact to light touch, calves are soft and nontender palpation. Objective Labs Result Diagrams: 08/19/21 06:00 08/18/21 21:40 Labs: Laboratory Results - last 24 hr 08/18/21 08/18/21 08/18/21 21:40 21:40 22:00 WBC 14.3 H RBC 3.98 L Hgb 11.8 L Hct 35.3 L MCV 88.5 MCH 29.7 MCHC 33.5 RDW 14.3 Plt Count 210 Neut % (Auto) Lymph % (Auto) [place] % (Auto) Eos % (Auto) Baso % (Auto) Neut # (Auto) Lymph # (Auto) [place] # (Auto) Eos # (Auto) Baso # (Auto) Sodium 136 L Potassium 3.9 Chloride 104 Carbon Dioxide 21 L BUN 16 Creatinine 0.66 Estimated GFR > 60 BUN/Creatinine Ratio 24.2 H Glucose 194 H Calcium 7.9 L Magnesium Total Creatine Kinase 228 H CK-MB (CK-2) 2.48 H CK-MB (CK-2) Rel Index 1.1 L Troponin I < 0.012 TSH Nasal Screen MRSA (PCR) Blood Type O Negative Antibody Screen Negative 08/18/21 08/19/21 08/19/21 23:00 06:00 06:00 WBC 11.0 RBC 3.69 L Hgb 10.9 L Hct 32.5 L MCV 88.1 MCH 29.6 MCHC 33.6 RDW 14.5 Plt Count 179 Neut % (Auto) 90.5 H Lymph % (Auto) 5.1 L [place] % (Auto) 4.4 Eos % (Auto) 0.0 L Baso % (Auto) 0.0 Neut # (Auto) 77383 H Lymph # (Auto) 600 L [place] # (Auto) 500 Eos # (Auto) 0 Baso # (Auto) 0 Sodium Potassium Chloride Carbon Dioxide BUN Creatinine Estimated GFR BUN/Creatinine Ratio Glucose Calcium Magnesium Total Creatine Kinase CK-MB (CK-2) CK-MB (CK-2) Rel Index Troponin I < 0.012 TSH Nasal Screen MRSA (PCR) Negative for mrsa Blood Type Antibody Screen 08/19/21 08/19/21 06:00 06:00 WBC RBC Hgb Hct MCV MCH MCHC RDW Plt Count Neut % (Auto) Lymph % (Auto) [place] % (Auto) Eos % (Auto) Baso % (Auto) Neut # (Auto) Lymph # (Auto) [place] # (Auto) Eos # (Auto) Baso # (Auto) Sodium Potassium Chloride Carbon Dioxide BUN Creatinine Estimated GFR BUN/Creatinine Ratio Glucose Calcium Magnesium 1.8 Total Creatine Kinase CK-MB (CK-2) CK-MB (CK-2) Rel Index Troponin I TSH 1.07 Nasal Screen MRSA (PCR) Blood Type Antibody Screen [facility] Medical History Anxiety Depression Easy bruisability GERD (gastroesophageal reflux disease) HLD (hyperlipidemia) HTN (hypertension) Hypothyroidism Seasonal allergies TIA (transient ischemic attack) (02/2020) Wrist fracture (01/2019) Surgical History History of bladder surgery (2003) History of hip surgery (04/2020) Hx of bilateral cataract extraction Hx of cholecystectomy (12/2019) Social History household members: family Smoking Status: Former smoker alcohol intake: former Assessment & Plan Post-op Postoperative Procedures: Procedures Operation Date: 08/18/21 13:30 Actual Procedure Side Surgeon p Total Hip Arthroplasty, removal of internal fixation Left Isabel Eddy MD Postoperative day: 1 Postoperative status narrative: Status post left hip removal of internal fixation and conversion to a left total hip arthroplasty -(1) Atrial fibrillation: (2) Acute blood loss anemia: (3) Hypothyroidism: Postoperative plan narrative: -mobilize with physical therapy. Maintain posterior hip precautions x6 weeks. Hip abductor pillow while resting in bed, okay to remove when up in standing, or sitting in the chair. Weightbearing as tolerated with front wheel walker -aspirin 81 mg b.i.d. x6 weeks for DVT prophylaxis -continue with multimodal pain management -acute blood-loss anemia: Patient is mildly symptomatic at this time. We will continue to monitor H&H, transfusion based on ICU/hospitalist recommendation, or if the patient becomes more symptomatic -Acute AFib and hypothyroidism being monitored and treated by ICU/hospitalist team -disposition: Home likely in 2-4 days, depending on medical issues, as recommended by ICU/hospitalist team, and clearance by physical therapist in regards to her left hip
[2021-08-19] MEDS: SUMAtriptan 25 MG TABLET 100 MG PO (13:12)
--- NOTE | 2021-08-19 13:29 | PM.PN.1 ---
Subjective Subjective Interval history: Patient denies any acute complaints this morning. She reports a hx of being told she has an irregular heartbeat some time back, but denies that she was told its a fib. She endorses a hx of CVA in the fall, that was likely a fib related. She denies ever being on anticoagulation in the past, but does endorse being on antiplatelet therapy after her CVA. Exam Vital Signs (past 8 hours): - 08/19/21 08:00 08/19/21 10:31 Temperature 98.4 F Pulse Rate 85 Respiratory Rate 18 Blood Pressure 108/73 Pulse Oximetry 96 95 Oxygen Delivery Method Room Air Oxygen Flow Rate 4 Const Other: Patient sitting up in bed upon my entering the room, comfortable and in no apparent acute distress Eyes Other: No scleral icterus appreciated Resp Other: Lungs clear to auscultation bilaterally Cardio Other: RRR, with normal S1 and S2 heart sounds, no extra heart sounds or murmurs appreciated GI Other: Soft, non-distended, non-tender, bowel sounds present Skin Other: No grossly abnormal skin lesions noted Extrem Other: Palpable dorsalis pedis pulses bilaterally Objective Labs Result Diagrams: 08/19/21 06:00 08/18/21 21:40 Labs: Laboratory Results - last 24 hr 08/18/21 08/18/21 08/18/21 21:40 21:40 22:00 WBC 14.3 H RBC 3.98 L Hgb 11.8 L Hct 35.3 L MCV 88.5 MCH 29.7 MCHC 33.5 RDW 14.3 Plt Count 210 Neut % (Auto) Lymph % (Auto) [place] % (Auto) Eos % (Auto) Baso % (Auto) Neut # (Auto) Lymph # (Auto) [place] # (Auto) Eos # (Auto) Baso # (Auto) Sodium 136 L Potassium 3.9 Chloride 104 Carbon Dioxide 21 L BUN 16 Creatinine 0.66 Estimated GFR > 60 BUN/Creatinine Ratio 24.2 H Glucose 194 H Calcium 7.9 L Magnesium Total Creatine Kinase 228 H CK-MB (CK-2) 2.48 H CK-MB (CK-2) Rel Index 1.1 L Troponin I < 0.012 TSH Nasal Screen MRSA (PCR) Blood Type O Negative Antibody Screen Negative 08/18/21 08/19/21 08/19/21 23:00 06:00 06:00 WBC 11.0 RBC 3.69 L Hgb 10.9 L Hct 32.5 L MCV 88.1 MCH 29.6 MCHC 33.6 RDW 14.5 Plt Count 179 Neut % (Auto) 90.5 H Lymph % (Auto) 5.1 L [place] % (Auto) 4.4 Eos % (Auto) 0.0 L Baso % (Auto) 0.0 Neut # (Auto) 33761 H Lymph # (Auto) 600 L [place] # (Auto) 500 Eos # (Auto) 0 Baso # (Auto) 0 Sodium Potassium Chloride Carbon Dioxide BUN Creatinine Estimated GFR BUN/Creatinine Ratio Glucose Calcium Magnesium Total Creatine Kinase CK-MB (CK-2) CK-MB (CK-2) Rel Index Troponin I < 0.012 TSH Nasal Screen MRSA (PCR) Negative for mrsa Blood Type Antibody Screen 08/19/21 08/19/21 06:00 06:00 WBC RBC Hgb Hct MCV MCH MCHC RDW Plt Count Neut % (Auto) Lymph % (Auto) [place] % (Auto) Eos % (Auto) Baso % (Auto) Neut # (Auto) Lymph # (Auto) [place] # (Auto) Eos # (Auto) Baso # (Auto) Sodium Potassium Chloride Carbon Dioxide BUN Creatinine Estimated GFR BUN/Creatinine Ratio Glucose Calcium Magnesium 1.8 Total Creatine Kinase CK-MB (CK-2) CK-MB (CK-2) Rel Index Troponin I TSH 1.07 Nasal Screen MRSA (PCR) Blood Type Antibody Screen [facility] Medical History Anxiety Depression Easy bruisability GERD (gastroesophageal reflux disease) HLD (hyperlipidemia) HTN (hypertension) Hypothyroidism Seasonal allergies TIA (transient ischemic attack) (02/2020) Wrist fracture (01/2019) Surgical History History of bladder surgery (2003) History of hip surgery (04/2020) Hx of bilateral cataract extraction Hx of cholecystectomy (12/2019) Social History household members: family Smoking Status: Former smoker alcohol intake: former Assessment & Plan Assessment & Plan narrative: Assessment: 1. Atrial fibrillation with RVR, resolved, likely brought on by adrenergic state intra-operatively 2. 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 Left hip fracture status post orthopedic repair 4. Hypertension 5. Hypothyroidism 6. Depression 7. Hx of migraine headaches Plan: 1. Will discontinue IV diltiazem, as rate is controlled now on home Toprol 25 mg bid. Continue home Toprol 25 mg bid for rate control. CHADSVASc 6 (HTN, age 75, female sex, hx of CVA). The patient can be started on therapeutic anticoagulation, likely with Eliquis 5 mg bid, once orthopedics clears left hip drain with sanguinous output, and this can be done outpatient, too. The patient understands the stroke/bleeding benefit/risk. 2. Patient reports being on aspirin 81 mg daily and Plavix 75 mg daily at home, although the latter med is not listed. If she is on dual antiplatelet therapy, then recommend continuing only aspirin with Eliquis, moving forward. 3. Status post orthopedic repair, PT/OT on-board. 4. Continue home amlodipine 5 mg daily, along with Toprol. 5. Continue home levothyroxine 150 mcg daily. 6. Continue home excitalopram 20 mg daily. 7. On sumatriptan for abortive therapy outpatient. Code: Full code I have utilized all available immediate resources to obtain, update, or verify the patient's current medications. Thank you for this consult. [facility] medicine will sign-off at this time. Time Spent With Patient Critical Care time: I spent a total of [] minutes of critical care time on this patient's care today; this time is exclusive of procedural time. Quality MIPS - Admit I confirm the patient?s Advance Care Plan is present, Code status is documented, Surrogate decision maker is in patient?s record [If Yes, STOP here]: Yes
--- NOTE | 2021-08-19 13:50 | PT.IPTN ---
Current Diagnoses Acute posthemorrhagic anemia (08/18/21) Hypothyroidism, unspecified (08/18/21) Unspecified atrial fibrillation (08/18/21) Unilateral post-traumatic osteoarthritis, left hip (08/18/21) Fracture of unspecified part of neck of left femur, subsequent encounter for closed fracture with malunion (08/18/21) Presence of unspecified artificial hip joint (08/18/21) Surgery Performed Operation Date: 08/18/21 13:30 Actual Procedures p Total Hip Arthroplasty, removal of internal fixation(Left) - Isabel Eddy MD Physical Therapy Treatment Note M2 PT-IP Current Condition Start: 08/19/21 10:15 Freq: Status: Active Protocol: Document 08/19/21 10:15 BC (Rec: 08/19/21 10: BC [id number]) Physical Therapy Current Condition Current Condition Evaluation Date 08/19/21 Treatment Diagnosis R NORM posterior; difficulty with ambulation Onset Date 08/18/21 M3 PT-IP Subjective Start: 08/19/21 10:15 Freq: Status: Active Protocol: Document 08/19/21 13:33 KS (Rec: 08/19/21 14:05 KS [id number]) Subjective Physical Therapy Visit Type Type Treatment Note Visit Start Time 13:33 Visit Stop Time 13:50 Total Visit Minutes 17 Number of [employer] Visits 1 Physical Therapy Visit Comments Patient Comments Pt agreeable to exercises in bed only due to feeling unstable and shaky earlier. M4 PT-IP Mobility and Gait Start: 08/19/21 10:15 Freq: Status: Active Protocol: Document 08/19/21 13:33 KS (Rec: 08/19/21 14:05 KS [id number]) PT-Transfer Assessment Comments Mobility Comments Pt refused OOB mobility stating she just feels unstable and skaky and would like to wait to try getting out of bed until tomorrow. Pt instructed and performed 2x10 bilateral ankle pumps, quad sets, glute sets, SLR and 1x5 mini heel slides. Pt left in bed w/ all needs in reach and daughter in room. Gait Assessment Comments Gait Comments Did not attempt. M5 PT-IP Objective Assessments Start: 08/19/21 10:15 Freq: Status: Active Protocol: Document 08/19/21 10:15 BC (Rec: 08/19/21 10:26 BC [id number]) Orientation Orientation/Cognition Level of Alertness Alert Orientation Name,Age,Birthday,Month,Date, Year,Day of Week,Place, Situation Language Function Ability No Deficits Noted Gross Range of Motion Upper Extremity ROM Assessment Within Functional Limits Lower Extremity ROM Assessment Left Impaired Impairments L hip grossly WFL withing parameters of hip precaution. Strength Upper Extremity Strength Assessment Within Functional Limits Lower Extremity Strength Assessment Left Impaired Hip 3 Knee 5 Ankle 5 Coordination Assessment Gross Coordination Gross Coordination WNL Sensation Assessment Sensation Gross Sensation WNL M6 PT-IP Treatment Start: 08/19/21 10:15 Freq: Status: Active Protocol: Document 08/19/21 13:33 KS (Rec: 08/19/21 14:05 KS [id number]) Physical Therapy Treatment Exercises Exercises Ankle Pumps,Gluteal Sets,Quad Sets,Heel Slides,Straight Leg Raises Education Education Provided Precautions,Weight Bearing Status,Post-Op Packet,Safety Other Treatments Other Treatment Performed Reveiwed safety and precautions, pt recalled 2/3 ( no IR). Spoke w/ pts daughter who will be caring for pt at d /c. M7 PT-IP Assessment and Plan Start: 08/19/21 10:15 Freq: Status: Active Protocol: Document 08/19/21 13:33 KS (Rec: 08/19/21 14:05 KS [id number]) PT Summary Assessment and Plan Potential Rehabilitation Potential Excellent Status of Condition at Evaluation Stable Summary Impairments Pain,ROM,Strength,Balance, Transfers,Gait Progress Towards Goals Progressing Toward Goals Assessment Summary D/c plan depending on progress . Pt refused x2 OOB mobility stating she does not feel ready yet following instability and shaky/woozy this AM, but agreeable to try tomorrow. Able to perform LE exercises to promote blood flow and strenthening w/ good tolerance and agreeable to performing in bed this evening . Will progress as tolerated tomorrow. Anticipating pt will be able to d/c home with daughter and begin OPPT. Goals Bed Mobility Goal Independent Transfer Goal Independent,Standby Assistance Gait Goal Independent,Standby Assistance Gait Distance 100 Days to Meet Goals 4 Frequency of Treatment Frequency Of Treatment Twice a Day Treatment Plan Physical Therapy Treatment Plan Bed Mobility Training,Transfer Training,Gait Training, Therapeutic Exercise,Balance Retraining,Post Op Education, Discharge Planning, Neuromuscular Re-ed, Coordination Retraining Precautions Posterior Hip Precautions No Hip Flexion > 90 degrees,No Hip Internal Rotation,No Hip Adduction Weight Bearing Status Weight Bearing Status Weight Bear as Tolerated Recommendations To Nursing Amount of Assist Needed 1 Person Assist Discharge Recommendations PT Discharge Recommendations Home with Assistance, Outpatient PT Transportation Needs at Discharge Private Vehicle
[2021-08-19] MEDS: SODIUM CHLORIDE 0.9% FLUSH 10 ML IV (20:47)
[2021-08-20 06:00] VITALS: BP 131/63; PULSE 90; RESP 19; TEMP 37.2; O2SAT 98
[2021-08-20] MEDS: PANTOPRAZOLE DR 40 MG TABLET PO (06:03)
[2021-08-20] MEDS: ACETAMINOPHEN 325 MG TABLET 650 MG PO (06:03)
[2021-08-20] MEDS: LEVOTHYROXINE 150 MCG TABLET PO (06:03)
[2021-08-20] MEDS: IBUPROFEN 400 MG TABLET PO (06:03)
[2021-08-20 08:36] VITALS: PULSE 70; RESP 18; O2SAT 98
[2021-08-20] MEDS: ESCITALOPRAM 10 MG TABLET 20 MG PO (08:39)
[2021-08-20] MEDS: ATORVASTATIN 20 MG TABLET 40 MG PO (08:39)
[2021-08-20] MEDS: AMLODIPINE 5 MG TABLET PO (08:39)
[2021-08-20 08:40] VITALS: BP 107/55; BP 131/63; PULSE 101; PULSE 107; RESP 21; TEMP 37.5; O2SAT 95
[2021-08-20] MEDS: ASPIRIN EC 81 MG TABLET PO (08:40)
[2021-08-20] MEDS: METOPROLOL ER 50 MG TABLET 25 MG PO (08:40)
[2021-08-20] MEDS: DOCUSATE 100 MG CAPSULE PO (08:40)
[2021-08-20] MEDS: SODIUM CHLORIDE 0.9% FLUSH 10 ML IV (08:44)
[2021-08-20 09:10] VITALS: BP 111/57; PULSE 88
--- NOTE | 2021-08-20 10:09 | PT.IPTN ---
Current Diagnoses Acute posthemorrhagic anemia (08/18/21) Hypothyroidism, unspecified (08/18/21) Unspecified atrial fibrillation (08/18/21) Unilateral post-traumatic osteoarthritis, left hip (08/18/21) Fracture of unspecified part of neck of left femur, subsequent encounter for closed fracture with malunion (08/18/21) Presence of unspecified artificial hip joint (08/18/21) Surgery Performed Operation Date: 08/18/21 13:30 Actual Procedures p Total Hip Arthroplasty, removal of internal fixation(Left) - Isabel Eddy MD Physical Therapy Treatment Note M2 PT-IP Current Condition Start: 08/19/21 10:15 Freq: Status: Discharge Protocol: Document 08/19/21 10:15 BC (Rec: 08/19/21 10:26 BC [id number]) Physical Therapy Current Condition Current Condition Evaluation Date 08/19/21 Treatment Diagnosis R NORM posterior; difficulty with ambulation Onset Date 08/18/21 M3 PT-IP Subjective Start: 08/19/21 10:15 Freq: Status: Discharge Protocol: Document 08/20/21 09:44 KS (Rec: 08/20/21 13:53 KS [id number]) Subjective Physical Therapy Visit Type Type Treatment Note Visit Start Time 09:44 Visit Stop Time 10:09 Total Visit Minutes 25 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 Therapy Pain Assessment Pain When Pain Assessed During Mobility Pain Present Pain Present Pain Reported M4 PT-IP Mobility and Gait Start: 08/19/21 10:15 Freq: Status: Discharge Protocol: Document 08/20/21 09:44 KS (Rec: 08/20/21 13:53 KS [id number]) PT-Bed Mobility Assessment Supine to Sit Supine to Sit Standby Assistance Scooting Scooting to Edge of Bed Standby Assistance PT-Transfer Assessment Sit to and From Stand Sit to and from Stand Standby Assistance,Contact Guard Assistance Equipment Transfer Assistive Device Gait Belt,Front Wheeled Walker Transfers Transfer Destination Bed,Chair Transfer Technique Pt ambulated w/ FWW Transfer Ability Level of Assist Standby Assistance,Contact Guard Assistance,1 Person Assistance,Use of Upper Extremities Comments Mobility Comments Pt in bed upon arrival and agreeable to ambulate. SBA for sup<>sit and scooting EOB. SBA to CGA for sit<>stand w/ FWW. Pts BP stable throughout. Pt then ambulated ~30 ft w/ FWW CGA w/ good use of FWW and good safety awareness. She then returned to take seated rest break on EOB and reported slight wooziness, BP: 96/55 sitting and then 111/57 standing. She then ambulated additional 20 ft to chair. Able to recall 3/3 precautions . Pt left in chair w/ all needs in reach. Gait Assessment Gait Gait Assistance Required: Standby Assistance,Contact Guard Assist,1 Person Assist Distance (Feet) 30 Able to Maintain Weight Bearing Status Yes During Gait Assistive Devices Assistive Device Gait Belt,Front Wheeled Walker Gait Deviations General Gait Pattern Ataxic,Decreased Stride Length ,Decreased Feet Clearance, Flexed Trunk Factors Limiting Gait Function Factors Limiting Gait Function Decreased Activity Tolerance, Decreased Strength,Pain,Poor Balance Comments Gait Comments Pt ambulated 30 ft w/ FWW and then additional 20 ft. Quick approach to fatigue and increased pain. Stair Climbing Assessment Comments Stair Climbing Comments Did not assess, pt first reporting no stairs and then reporting threshold but not agreeable to practice stairs. PT-Balance Assessment Sitting Balance and Reactions Static Sitting Balance Ability Normal Dynamic Sitting Balance Ability Normal Standing Balance and Reactions Static Standing Balance Ability Good Dynamic Standing Balance Ability Good Device Used FWW M5 PT-IP Objective Assessments Start: 08/19/21 10:15 Freq: Status: Discharge Protocol: Document 08/19/21 10:15 (Rec: 08/19/21 10:26 [id number]) Orientation Orientation/Cognition Level of Alertness Alert Orientation Name,Age,Birthday,Month,Date, Year,Day of Week,Place, Situation Language Function Ability No Deficits Noted Gross Range of Motion Upper Extremity ROM Assessment Within Functional Limits Lower Extremity ROM Assessment Left Impaired Impairments L hip grossly WFL withing parameters of hip precaution. Strength Upper Extremity Strength Assessment Within Functional Limits Lower Extremity Strength Assessment Left Impaired Hip 3 Knee 5 Ankle 5 Coordination Assessment Gross Coordination Gross Coordination WNL Sensation Assessment Sensation Gross Sensation WNL M6 PT-IP Treatment Start: 08/19/21 10:15 Freq: Status: Discharge Protocol: Document 08/20/21 09:44 KS (Rec: 08/20/21 13:53 KS [id number]) Physical Therapy Treatment Education Education Provided Precautions,Weight Bearing Status,Post-Op Packet,Safety M7 PT-IP Assessment and Plan Start: 05/27/22 10:15 Freq: Status: Discharge Protocol: Document 08/20/21 09:44 KS (Rec: 08/20/21 13:53 KS [id number]) PT Summary Assessment and Plan Potential Rehabilitation Potential Excellent Status of Condition at Evaluation Stable Summary Impairments Pain,ROM,Strength,Balance, Transfers,Gait Progress Towards Goals Progressing Toward Goals Assessment Summary Pt showed progress with mobility and actviity toelrance today. SBA for bed mobility and SBA to CGA for ambulation and transfers w/ FWW. Low tolerance for activity due to weakness, but able to ambulated 30 ft which she states is far enough to get her inside her house. Anticipate pt will be safe to d/c home w/ daughter assisting and OPPT. Goals Bed Mobility Goal Independent Transfer Goal Independent,Standby Assistance Gait Goal Independent,Standby Assistance Gait Distance 100 Days to Meet Goals 4 Frequency of Treatment Frequency Of Treatment Twice a Day Treatment Plan Physical Therapy Treatment Plan Bed Mobility Training,Transfer Training,Gait Training, Therapeutic Exercise,Balance Retraining,Post Op Education, Discharge Planning, Neuromuscular Re-ed, Coordination Retraining Precautions Posterior Hip Precautions No Hip Flexion > 90 degrees,No Hip Internal Rotation,No Hip Adduction Weight Bearing Status Weight Bearing Status Weight Bear as Tolerated Recommendations To Nursing Amount of Assist Needed 1 Person Assist Discharge Recommendations PT Discharge Recommendations Home with Assistance, Outpatient PT Transportation Needs at Discharge Private Vehicle
--- NOTE | 2021-08-20 11:11 | PC.NURSE ---
1100 Removed [place] catheter per protocol, pt tolerated well, due to void by 1700. Bed low and locked, call light within reach, will continue to monitor.
--- NOTE | 2021-08-20 11:37 | P.DS_ITS ---
History of Present Illness History of Present Illness Date Patient Seen: 08/20/21 Time Patient Seen: 11:37 Chief complaint: Left hip pain s/p left NORM Narrative: Patient is complaining of mild left hip pain this morning which is well controlled with ibuprofen and Tylenol. She has not taken any narcotics. She is cleared by Physical therapy and hospitalist. Overall she is feeling well like to be discharged home. She denies any new numbness or tingling. Denies any lightheadedness or dizziness. Patient underwent a left hip revision with AFib noted intraoperatively.? There were ischemic changes on her EKG, and therefore she was transported to the ICU postoperatively. Discharge Providers Provider Date of admission: 08/18/21 11:30 Discharge Date: 08/20/21 Primary care physician: Lizzeth Kendall PA-C Consults: 08/18/21 06:50 Consult to Anesthesiology Routine Comment: Consulting Provider: Anesthesiologist Reason for consultation: Regional block for post operative pain control 08/18/21 22:15 Consult to Discharge Planning Routine Comment: Consult to Hospitalist Service Routine Comment: Consulting Provider: Terrence Hall Reason for consultation: new onset a fib Has provider been notified: Yes Consult to Physical Therapy Evaluate & Treat Comment: Physician Instructions: post op NORM protocol Consult to Respiratory Therapy Evaluate & Treat Comment: Physician Instructions: Evaluate and treat Discharge provider: Maya Dale PA-C Summary Hospital Course Discharge Diagnosis: -Failed left hip ORIF, posttraumatic left hip arthritis history of left intertrochanteric fracture -Atrial fibrillation with RVR, resolved, likely brought on by adrenergic state intra-operatively -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 Same procedure as scheduled: Yes Indications: This is a 75-year-old with a history of a left hip fracture about 15 months ago.? She was treated at an outside hospital and had a nail placed for a comminuted intertrochanteric hip fracture.? She had failure of fixation with Mimi of the lag screw through her femoral head and into the acetabulum.? She noted that she had had about 15 months of incapacitating left leg pain with se anibal left leg shortening.? She is brought the operating room for total hip arthroplasty with removal of internal fixation and reconstruction as needed. Surgeon: Isabel Eddy Rn Research: Maya Dale Anesthesia Type: General and Spinal Operative Notes Findings: Comminuted left hip fracture with severe scarring and a malunion of the proximal femur, failure of fixation with a Mimi of the lag screw through the femoral head in into the acetabulum with an acetabular defect, adequate stability, some buddhism of leg length, soft bone Closure Type: primary Specimen(s): other (Cultures) Prosthetic devices, grafts, tissues, transplants, or devices: Size 52 R3 cup, 40 x 52 dual mobility acetabulum, size 15 x 190 mm readapt femoral stem, +4 by 22 Oxinium dual mobility head, Applied: drain(s) Blood products transfused: none The patient will be maintained on a standard total hip replacement protocol with weight bearing as tolerated and posterior hip precautions. The patient will receive Eliquis and Aspirin and sequential compression devices for DVT prophylaxis. She was felt to have new onset atrial fibrillation intraoperatively.? It was felt she required monitoring in the ICU over night and Dr. Hall? from the hospitalist service was consulted. Patient was relatively stable in the ICU and has been working with physical therapy. Overall she is feeling well like to be discharged home today. Status at Discharge Cognitive/behavioral status at discharge: oriented Functional status at discharge: uses cane/walker Overall status at discharge: patient is progressing back to baseline Exam Vital Signs (past 8 hours): - 08/20/21 06:00 08/20/21 08:36 08/20/21 08:40 Temperature 98.9 F 99.5 F Pulse Rate 90 70 107 H Respiratory Rate 19 18 21 Blood Pressure 131/63 107/55 L Pulse Oximetry 98 98 95 08/20/21 09:10 Temperature Pulse Rate 88 Respiratory Rate Blood Pressure 111/57 L Pulse Oximetry Oxygen Delivery Method Room Air Oxygen Flow Rate 0 Narrative Exam Narrative: Pleasant 75-year-old female, resting comfortably in her chair, no acute distress. Dressing demonstrates some distal serosanguineous drainage. No surrounding erythema or induration. Her Hemovac has put out 90 cc today, okay to be discharged today. Bilateral lower extremity: Motor functions are grossly intact, sensation is grossly intact to light touch, calves are soft and nontender to palpation. Objective Labs Result Diagrams: 08/19/21 06:00 08/18/21 21:40 [facility] Medical History Anxiety Depression Easy bruisability GERD (gastroesophageal reflux disease) HLD (hyperlipidemia) HTN (hypertension) Hypothyroidism Seasonal allergies TIA (transient ischemic attack) (02/2020) Wrist fracture (01/2019) Surgical History History of bladder surgery (2003) History of hip surgery (04/2020) Hx of bilateral cataract extraction Hx of cholecystectomy (12/2019) Social History household members: family Smoking Status: Former smoker alcohol intake: former Discharge Assessment & Plan Assessment and Plan Assessment: -Failed left hip ORIF, posttraumatic left hip arthritis history of left intertrochanteric fracture -Atrial fibrillation with RVR, resolved, likely brought on by adrenergic state intra-operatively -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 She is not requiring narcotics and requests no narcotics for home -mobilize with PT. Maintain posterior hip precautions x6 weeks. Use hip abductors in pillow when in bed. Weightbearing as tolerated with front wheel walker -Eliquis 5 mg plus aspirin 81 mg daily for DVT prophylaxis and cardiac stent. We will discontinue the Plavix, per hospitalist recommendation. -discontinue Hemovac drain today -follow-up with PCP/moving consultant for AFib intraoperatively, as well as hypertension hypothyroidism depression and headaches -DC home today when cleared by PT Discharge Plan Discharge Plan Patient Disposition: Home Discharge orders & Medications Prescriptions: New acetaminophen 500 mg capsule 500 mg PO Q4H MDD Max 3000 mg per day PRN (Reason: fever or pain) Qty: 90 0RF ibuprofen 400 mg Tablet 400 mg PO Q6HR MDD Max 2400 mg per day PRN (Reason: Pain/inflammation) Qty: 90 0RF Continued atorvastatin 40 mg Tablet 40 mg PO DAILY 0RF metoprolol succinate 50 mg Tablet Extended Release 24 Hr 25 mg PO BID 0RF sumatriptan succinate 100 mg Tablet 100 mg PO DAILY PRN (Reason: Headaches) 0RF Rx Instructions: take 1 tab at onset of headache; if no relief, may repeat 1 tab after at least 2 hrs; max = 2 tabs/24 hrs amlodipine 5 mg Tablet 5 mg PO DAILY 0RF aspirin [Aspir-81] 81 mg Tablet,Delayed Release (Dr/Ec) 81 mg PO DAILY 0RF levothyroxine [Synthroid] 150 mcg Tablet 150 mcg PO SEEINSTR 0RF Rx Instructions: Pt takes 5 days, then off x 2 days omeprazole 20 mg Capsule,Delayed Release(Dr/Ec) 40 mg PO QAM 0RF escitalopram oxalate 20 mg Tablet 20 mg PO DAILY 0RF cetirizine [Zyrtec] 10 mg Tablet 10 mg PO DAILY PRN (Reason: Seasonal allergies) 0RF Follow up/Referrals: Lizzeth Kendall PA-C [Primary Care Provider] - (Follow-up with primary care regarding new onset AFib noted intraoperatively. We have also changed due to Eliquis 5 mg plus aspirin 81 mg daily for blood clot prevention an your cardiac stents, instead of Plavix.) Isabel Eddy MD [Physician] - (10-14 days for postoperative visit) Diet/Activity/Treatments Diet: Diet as Tolerated Other treatments: Dressing/Wound care: -Keep Marizol dressing in place until postoperative follow-up office visit. Okay to cut off Marizol tail when battery pump pack stops working. -Okay to shower. Keep wound out of direct water stream. No soaking or submerging until all the scabs fall off (approximately 6 weeks). -Please call the office if dressing becomes wet, soiled, or saturated. Activities: -Maintain posterior hip precautions x6 weeks. -use hip abduction pillow when in bed. -Weight-bearing as tolerated. Use front wheeled walker, and progress to cane when safe. -Continue with home exercises as directed by your physical therapist. -Elevate ?toes above the nose if you have significant swelling in your lower leg. (A wedge pillow is easiest.) -Ice your incision as needed for pain/inflammation/swelling. Protect your skin with a folded pillowcase. Follow-up: -Follow-up with your surgeon or PA in the office in 10-14 days after surgery. -Follow-up with your surgeon 6 weeks postoperatively. Call the office if you have chest pain, shortness of breath, significant swelling that will not resolve with elevating, fever over 101?, significantly worsening pain. [facility]: [phone] Skin/Wound/Dressing Care Report to your healthcare provider any signs of infection, such as:: chills, fever, night sweats, unusual drainage and unusual redness Visit Report/Discharge Packet Instructions: DI for Hip Replacement Stand Alone Forms: Surgery Discharge Discharge Data Primary Care Provider: Lizzeth Kendall
--- NOTE | 2021-08-20 12:08 | CM.DANOTE ---
Initial Discharge Plan Assessment: Case received, EMR reviewed and met with patient. Maya RIVERS has just seen patient and she is ready for discharge home. Introduced self and role. 75 year old female s/p L NORM on 08/18/[address] Isabel Eddy PCP: Dr Lizzeth Kendall and surgeon Dr Isabel Eddy Payer: Medicare, for Life Patient came in for planned surgery for Lt NORM on 08/18/21. Intraoperatively, patient experienced A Fib and postoperatively was transferred to ICU for observation. She has progressed and is now ready for discharge. Patient lives with her daughter in [place] and will have her daughter available for assistance. She has DME in home which she had used previously. Saw patient today and in room the ortho PA Maya was discussing plan for discharge home today unto care of daughter; therapies have cleared for this plan. P: Patient wishes to return home with her previous home arrangement. She will see Dr Eddy for postoperative appointment and she will attend outpatient PT based on Dr Eddy's directions. Family will transport home to [place]. Discharge Planning/Care Management CM Discharge Assessment Start: 08/20/21 12:04 Freq: Status: Active Protocol: Document 08/20/21 12:05 (Rec: 08/20/21 12:08 [id number]) Discharge Planning Assessment Assigned Senior Windows Systems Administrator Monse Ireland RN/ARMIDAP Advance Directives? Yes Advance Directives on File No History Provided By Patient,Family Member Prior Living Arrangements House Household Members family Type of transporation used prior to Relies on Others admit Independent with ADL's No: with some assistance due to postop Is patient alert and oriented? Yes Needs Assistance With Bathing,Meal Prep,Home Chores / Shopping Caregiver for Another No Community Services used prior to Physical Therapy admission: DME Already Rented / Owned Elevated Toilet Seat,FWW / Walker Patient/Family Preference OP PT Therapy Barriers to Discharge No Discharge Plan Home Community Services Physical Therapy Referrals Initiated None needed Next Review Type Continued Stay Review Pre-Anesthesia Assessment Start: 08/17/21 08:38 Freq: Status: Complete Protocol: Document 08/17/21 08:38 CAB (Rec: 08/17/21 09:28 CAB [id number]) Pre-Anesthesia Assessment Patient Information Reviewed Via Phone Assessment Assessment Completed With Patient Diagnostic Results BMP/CMP,CBC,Urinalysis Comment Labs/ECG @ 06/24/21, COVID screen @ 08/17/21 Primary Care Provider Lizzeth Kendall Medical Clearance Received Yes Specialist Seen Orthopedist Comment PCP clearance scanned to record Primary Language Czech Audit Reviewer Required No Height 172.72 cm Weight 92.986 kg Body Mass Index (BMI) 31.1 Hearing Ability Normal Visual Assist Magnifying Glass Dentition Type Teeth, Natural Present,Teeth, Missing Barriers to Learning None Hx Anesthesia Reactions No Hx Family Anesthesia Reaction No Hx Malignant Hyperthermia No Hx Blood Transfusions Yes: s/p hip surgery '21 Hx Blood Transfusion Reaction No Anesthesia Review Requested No Water Rights Specialist No alcohol intake former Smoking Status Former smoker how long ago did patient quit smoking Quit 35-40 years ago Substance Use Type does not use Pain Present Pain Reported Musculoskeletal Symptoms Abnormal Gait,Back Pain, Difficulty Walking,Joint Pain, Neck Pain History of Falling (Recent or History of Yes ) Patient is completely paralyzed or No completely immobile Prosthesis or Orthotic Device Front Wheel Walker Mental Status Oriented to own ability Is patient on oxygen? No Does patient have CORREA/SOB No Hx Sleep Apnea No Currently Taking a Beta Cesar Yes: Metoprolol Hx Chest Pain No Hx SOB No Hx Syncope or Dizziness No Anti-Coagulant Therapy No Has a Store Person No Cardiac Testing No Hx Pacemaker/ICD No Pacemaker Rep Required? No Cardiac Clearance Received Not Applicable Diet Type At Home Regular dysphagia No Gastrointestinal Symptoms Reflux Bladder Pattern Incontinent Urinary Catheter Present No Hx Urinary Self Catheterization No Diabetes No Patient No Lactating No Hx Drug Resistant Organism No Presence of External or Internal Medical Yes: Left hip, bilat eye IOLs, Devices bladder sling Have you had any close contact with No someone diagnosed with COVID-19? Received a COVID vaccine? Yes Received all doses? Yes Marital Status / Lives With family Prior Living Arrangements House Number of Floors (Floors) One Floor Support System Child/Children Does the Patient Have Assistance After Yes: Daughter lives with Surgery patient, will assist w/care Patient Discharge Plan Description Return Home Comment Pt advised 1-2 day length of stay per surgeon Feels Safe in Current Environment Yes Been Physically Hurt or Threatened By a No Person in Current Environment Do you have thoughts of harming yourself None or others? Are you currently considering suicide? No Do you have a plan to hurt yourself or No Plan others? Do You Have Any Spiritual Beliefs That No May Affect Your HC Choices? Do You Have Any Cultural Practices That No May Affect Your HC Choices? Comment Jainism Who Can We Speak to About Patient's Care Family, friends Identifying Code for Release of Patient Declines to issue Information Health Care Proxy/Next of Kin Meenu (daughter) Health Care Proxy Emergency Contact Name Meenu (daughter) Emergency Contact Advance Directives? No Power of Weir Fisher No PAC Instructions Do not shave/clip surgical site,Durable medical equipment ,Medications to take/avoid, Nasal antibiotic,No ETOH/ petroleum product on skin DOS, NPO,Post-op transportation,Pre -surgical wash,Sturdy shoes/ comfortable clothes,Do not bring valuables and remove jewelry
== END 2021-08-20 13:29 | disposition home or self-care (01) | DRG 470 ==
LOC: OR 11:32 → AC 13:44 → ICU 19:55
PROVIDERS: Anesthesiology; Family Medicine; Internal Medicine Critical Care Medicine; Internal Medicine Pulmonary Disease; Admitting Provider Orthopaedic Surgery; PCP Physician Assistant; Referring Provider Orthopaedic Surgery; Visit Provider Orthopaedic Surgery
PROC: 0SRB0JZ Replacement of Left Hip Joint with Synthetic Substitute, Open Approach (ICD-10-PCS; CPT 27130; principal; 2021-08-18 13:30)
DX: M16.52 Unilateral post-traumatic osteoarthritis, left hip (principal); S72.122 Displaced fracture of lesser trochanter of left femur; I48.91 Unspecified atrial fibrillation; E78.5 Hyperlipidemia, unspecified; E03.9 Hypothyroidism, unspecified; K21.9 Gastro-esophageal reflux disease without esophagitis; F32.A Depression, unspecified; I10 Essential (primary) hypertension; G43.909 Migraine, unspecified, not intractable, without status migrainosus; F41.9 Anxiety disorder, unspecified; W19.XXXS Unspecified fall, sequela; Z20.822 Contact with and (suspected) exposure to COVID-19; Z86.73 Personal history of transient ischemic attack (TIA), and cerebral infarction without residual deficits; Z87.891 Personal history of nicotine dependence
CPT/HCPCS: 36415; 71045; 73502; 80048; 82550; 82553; 82962; 83735; 84443; 84484; 85025; 85027; 86850; 86900; 86901; 87070; 87075; 87205; 87635; 87797; 93005; 93306; 94762; 97110; 97116; 97161; 97530; C1776; C9803; C9290; J0171; J0690; J1100; J1170; J2250; J2405; J2704; J3010

== ENCOUNTER 2022-07-31 08:23 | Emergency (ER) | payer MEDICARE, OTHER, SELFPAY ==
[2021-08-18 23:52] VITALS: BMI 31.1
[2022-07-31] VITALS (18 sets, daily range): BP systolic 106–164; BP diastolic 61–111; PULSE 84–145; RESP 15–23; TEMP 36.9; O2SAT 91–99; BMI 34.9
--- NOTE | 2022-07-31 08:32 | DI.RAD.S_ITS ---
PROCEDURE: XR CHEST 1V INDICATIONS: chest pain TECHNIQUE: One view of the chest was acquired. COMPARISON: [facility], CR, XR CHEST 1 VIEW, 05/27/2022, 12:35. FINDINGS: Surgical changes and devices: None. Lungs and pleura: Lungs are clear. No pleural effusions or pneumothorax. Mediastinum: Mediastinal contours appear normal. Heart size is enlarged. Bones and chest wall: No suspicious bony lesions. Overlying soft tissues appear unremarkable. IMPRESSION: No acute pulmonary process. Dictated by: Aydee Zambrano M.D. on 07/31/2022 at 8:52 Approved by: Aydee Zambrano M.D. on 07/31/2022 at 8:53
--- NOTE | 2022-07-31 08:32 | ED.ARRPALP ---
HPI - Arrhythmia/Palpitations General Chief Complaint: Arrhythmia/Palpitations Stated Complaint: dizzy Time Seen by Provider: 07/31/22 08:25 History of Present Illness HPI narrative: Patient is a 76-year-old female history of chronic atrial fibrillation, hypertension, hyperlipidemia, hypothyroid presents today with dizziness and weakness. She reports that she is had an ongoing headache for awhile she does get migraine headaches this is not worsening headache. This morning she tried to get up and just felt like her legs were weak kind of fell right back into bed but no injury from her fall she did not fall to the ground. Called EMS. EMS found that her heart rate was in the 170s. She was given 500 cc bolus which did help some. Patient was recently admitted to [facility] unsure if she is still on her Eliquis or not sounds as though she had an EGD and a colonoscopy there she does not report any bleeding but is overall poor historian. She is found to be in AFib with RVR rate in the 140s she says that she never feels it she thinks that headache and weakness might be related to ratio fibrillation. She denies any palpitations chest pain she feels a little bit dizzy. No numbness tingling or weakness abdominal pain nausea or vomiting. She is not had any fever or chills. She said she was feeling well yesterday. [facility] records have been requested Related Data Home Medications Medication Instructions Recorded Confirmed amlodipine 5 mg tablet 5 mg PO DAILY 08/17/21 08/18/21 aspirin 81 mg tablet,delayed 81 mg PO DAILY 08/17/21 08/18/21 release atorvastatin 40 mg tablet 40 mg PO DAILY 08/17/21 08/18/21 cetirizine 10 mg tablet (Zyrtec) 10 mg PO DAILY PRN Seasonal 08/17/21 08/17/21 allergies escitalopram oxalate 20 mg tablet 20 mg PO DAILY 08/17/21 08/18/21 levothyroxine 150 mcg tablet 150 mcg PO SEEINSTR 08/17/21 08/18/21 (Synthroid) metoprolol succinate 50 mg 25 mg PO BID 08/17/21 08/18/21 tablet,extended release 24 hr omeprazole 20 mg capsule,delayed 40 mg PO QAM 08/17/21 08/18/21 release sumatriptan succinate 100 mg tablet 100 mg PO DAILY PRN Headaches 08/17/21 08/17/21 Previous Rx's Medication Instructions Recorded acetaminophen 500 mg capsule 500 mg PO Q4H PRN fever or pain 08/20/21 #90 caps ibuprofen 400 mg tablet 400 mg PO Q6HR PRN 08/20/21 Pain/inflammation #90 tabs nitrofurantoin 100 mg PO Q12H 7 days #14 caps 07/31/22 monohydrate/macrocrystals 100 mg capsule (Macrobid) Allergies Allergy/AdvReac Type Severity Reaction Status Date / Time ceftriaxone AdvReac Vomiting Verified 08/19/21 07:25 Review of Systems Review of Systems ROS Unobtainable: All systems reviewed & are unremarkable except as noted in HPI and below Patient History Medical History Anxiety Depression Easy bruisability GERD (gastroesophageal reflux disease) HLD (hyperlipidemia) HTN (hypertension) Hypothyroidism Seasonal allergies TIA (transient ischemic attack) (02/2020) Wrist fracture (01/2019) Surgical History History of bladder surgery (2003) History of hip surgery (04/2020) Hx of bilateral cataract extraction Hx of cholecystectomy (12/2019) Social History household members: family Smoking Status: Former smoker alcohol intake: former Smoking Status: Former smoker Substance Use Type: does not use Exam Initial Vital Signs Initial Vital Signs: Vital Signs Pulse Rate 125 H 07/31/22 08:26 Pulse Oximetry 95 07/31/22 08:26 GENERAL: Alert well-appearing 76-year-old and in no acute distress. HEENT: Head atraumatic,EOMI, pupils reactive, face symmetric, moist mucous membranes CARDIOVASCULAR: Irregularly irregular tachycardic RESPIRATORY: Breath sounds equal bilaterally, no wheezes rales or rhonchi. ABDOMEN: Soft, nontender. Normoactive bowel sounds all 4 quadrants. No guarding or rebound. EXTREMITIES: Normal range of motion, no clubbing or edema. Neurovascularly intact NEUROLOGICAL: Alert and oriented x4.Normal gait and speech. Cranial nerves II through XII grossly intact. Good [id number], good [id number], strength equal bilaterally, no dysarthria or aphasia, sensation in tact to soft touch bilaterally, no visual changes, no facial droop SKIN: Warm, dry, no laceration, no petechiae, no rashes or lesions. Course Orders Ordered: Discontinued Medications Diltiazem HCl (Diltiazem 5 Mg/Ml Sdv) 10 mg IV NOW ONE Stop: 07/31/22 08:33 Last Admin: 07/31/22 08:56 Dose: 10 mg Documented By: JOSS Diltiazem HCl (Diltiazem 5 Mg/Ml Sdv) 10 mg IV NOW ONE Stop: 07/31/22 09:54 Last Admin: 07/31/22 10:31 Dose: Not Given Documented By: JOSS Metoprolol Succinate (Metoprolol Er 50 Mg Tablet) 50 mg PO NOW ONE Stop: 07/31/22 11:50 Last Admin: 07/31/22 12:16 Dose: 50 mg Documented By: JOSS Vital Signs Vital signs: Vital Signs - 8 hr 07/31/22 08:39 07/31/22 08:26 07/31/22 08:56 Temperature 98.4 F Pulse Rate 145 H 125 H 135 H Respiratory Rate 20 Blood Pressure 115/76 118/86 Pulse Oximetry 99 95 Oxygen Delivery Method Room Air 07/31/22 10:31 07/31/22 09:25 07/31/22 09:30 Temperature Pulse Rate 88 104 H Respiratory Rate 22 Blood Pressure 118/62 Pulse Oximetry Oxygen Delivery Method 07/31/22 09:30 07/31/22 09:45 07/31/22 09:45 Temperature Pulse Rate 84 86 Respiratory Rate 20 19 Blood Pressure 106/61 Pulse Oximetry 93 94 Oxygen Delivery Method Room Air 07/31/22 10:05 07/31/22 10:05 07/31/22 10:16 Temperature Pulse Rate 94 H 90 Respiratory Rate 20 21 Blood Pressure 164/73 H Pulse Oximetry 97 94 Oxygen Delivery Method 07/31/22 10:16 07/31/22 10:30 07/31/22 10:30 Temperature Pulse Rate 89 Respiratory Rate 19 Blood Pressure 132/78 126/65 Pulse Oximetry 95 Oxygen Delivery Method 07/31/22 10:45 07/31/22 10:45 07/31/22 11:00 Temperature Pulse Rate 87 Respiratory Rate 18 Blood Pressure 120/78 127/73 Pulse Oximetry 91 Oxygen Delivery Method 07/31/22 11:00 07/31/22 11:15 07/31/22 11:15 Temperature Pulse Rate 84 91 H Respiratory Rate 15 22 Blood Pressure 144/77 H Pulse Oximetry 93 96 Oxygen Delivery Method Room Air 07/31/22 11:24 07/31/22 11:24 07/31/22 11:40 Temperature Pulse Rate 103 H Respiratory Rate 22 Blood Pressure 132/78 154/78 H Pulse Oximetry 94 Oxygen Delivery Method 07/31/22 11:40 07/31/22 11:45 07/31/22 11:45 Temperature Pulse Rate 98 H 90 Respiratory Rate 21 23 Blood Pressure 153/76 H Pulse Oximetry 94 96 Oxygen Delivery Method 07/31/22 12:16 Temperature Pulse Rate 88 Respiratory Rate Blood Pressure 153/82 H Pulse Oximetry Oxygen Delivery Method MDM - Arrhythmia/Palpitations Lab Data 07/31/22 08:33 07/31/22 08:33 Labs: Lab Results 07/31/22 07/31/22 07/31/22 Range/Units 08:33 08:33 08:33 WBC 11.6 H (4.5-11.0) X10^3/uL RBC 4.67 (4.0-5.2) X10^6/uL Hgb 13.0 (12.0-16.0) g/dL Hct 39.2 (36-46) % MCV 84.1 (80-100) fL MCH 27.8 (26-34) PG MCHC 33.1 (30-36) % RDW 26.6 H (11.6-14.8) % Plt Count 174 (150-400) X10^3/uL Neut % (Auto) Not Reportable Lymph % (Auto) Not Reportable [place] % (Auto) Not Reportable Eos % (Auto) Not Reportable Baso % (Auto) Not Reportable Lymph # (Auto) Not Reportable [place] # (Auto) Not Reportable Baso # (Auto) Not Reportable Total Counted 100 Seg Neutrophils % 82.0 H (38-70) % Lymphocytes % (Manual) 10.0 L (25-45) % Monocytes % (Manual) 8.0 (2-11) % Neutrophils # (Manual) 9512 H (9544-1686) /uL RBC Morphology See below Poikilocytosis 1+ H Anisocytosis 2+ H PT 14.6 H (10.1-12.7) SECONDS INR 1.3 (0.9-1.3) APTT 26 (26-36) SECONDS Sodium 133 L (137-145) mmol/L Potassium 3.6 (3.4-5.1) mmol/L Chloride 103 (98-107) mmol/L Carbon Dioxide 22 (22-32) mmol/L BUN 14 (7-17) mg/dL Creatinine 0.78 (0.52-1.04) mg/dL Estimated GFR > 60 (>60) mL/min BUN/Creatinine Ratio 17.9 (6-22) Glucose 127 H (80-110) mg/dL Calcium 8.4 (8.4-10.2) mg/dL Total Bilirubin 2.2 H (0.2-1.3) mg/dL AST 16 (14-36) IU/L ALT 15 (<35) IU/L Alkaline Phosphatase 88 (38-126) U/L Total Creatine Kinase 21 L (30-135) U/L CK-MB (CK-2) TNP CK-MB (CK-2) Rel Index TNP Troponin I < 0.012 (0.01-0.034) ng/mL NT-Pro-B Natriuret Pep 2230 H (<450) pg/mL Total Protein 6.8 (6.3-8.2) g/dL Albumin 3.6 (3.5-5.0) g/dL Globulin 3.2 (1.7-4.1) g/dL Albumin/Globulin Ratio 1.1 (1.0-2.8) Lipase 55 (23-300) U/L Urine Color Urine Appearance Urine pH (4.5-8.0) Ur Specific [place] (1.000-1.035) Urine Protein (Negative) Urine Glucose (UA) (Negative) g/dL Urine Ketones (NEGATIVE) Urine Occult Blood (Negative) Urine Nitrate (Negative) Urine Bilirubin (NEGATIVE) Urine Urobilinogen (0.2) E.U./dL Ur Leukocyte Esterase (NEGATIVE) Urine RBC (0-5/HPF) Urine WBC (0-5/HPF) Ur Squamous Epith Cells (0-5/HPF) Urine Bacteria (None) Ur Culture Indicated? SARS-CoV-2 (PCR) (Negative) 07/31/22 07/31/22 Range/Units 08:37 11:27 WBC (4.5-11.0) X10^3/uL RBC (4.0-5.2) X10^6/uL Hgb (12.0-16.0) g/dL Hct (36-46) % MCV (80-100) fL MCH (26-34) PG MCHC (30-36) % RDW (11.6-14.8) % Plt Count (150-400) X10^3/uL Neut % (Auto) Lymph % (Auto) [place] % (Auto) Eos % (Auto) Baso % (Auto) Lymph # (Auto) [place] # (Auto) Baso # (Auto) Total Counted Seg Neutrophils % (38-70) % Lymphocytes % (Manual) (25-45) % Monocytes % (Manual) (2-11) % Neutrophils # (Manual) (3026-3944) /uL RBC Morphology Poikilocytosis Anisocytosis PT (10.1-12.7) SECONDS INR (0.9-1.3) APTT (26-36) SECONDS Sodium (137-145) mmol/L Potassium (3.4-5.1) mmol/L Chloride (98-107) mmol/L Carbon Dioxide (22-32) mmol/L BUN (7-17) mg/dL Creatinine (0.52-1.04) mg/dL Estimated GFR (>60) mL/min BUN/Creatinine Ratio (6-22) Glucose (80-110) mg/dL Calcium (8.4-10.2) mg/dL Total Bilirubin (0.2-1.3) mg/dL AST (14-36) IU/L ALT (<35) IU/L Alkaline Phosphatase (38-126) U/L Total Creatine Kinase (30-135) U/L CK-MB (CK-2) CK-MB (CK-2) Rel Index Troponin I (0.01-0.034) ng/mL NT-Pro-B Natriuret Pep (<450) pg/mL Total Protein (6.3-8.2) g/dL Albumin (3.5-5.0) g/dL Globulin (1.7-4.1) g/dL Albumin/Globulin Ratio (1.0-2.8) Lipase (23-300) U/L Urine Color [place] Urine Appearance Cloudy Urine pH 6.0 (4.5-8.0) Ur Specific [place] >=1.030 H (1.000-1.035) Urine Protein 1+ H (Negative) Urine Glucose (UA) Negative (Negative) g/dL Urine Ketones Trace H (NEGATIVE) Urine Occult Blood 1+ H (Negative) Urine Nitrate Positive H (Negative) Urine Bilirubin Negative (NEGATIVE) Urine Urobilinogen 2.0 H (0.2) E.U./dL Ur Leukocyte Esterase 1+ H (NEGATIVE) Urine RBC 1-5/hpf (0-5/HPF) Urine WBC 5-10/hpf H (0-5/HPF) Ur Squamous Epith Cells 1-5 /hpf (0-5/HPF) Urine Bacteria Many (>30) H (None) Ur Culture Indicated? Specimen cultured SARS-CoV-2 (PCR) Negative (Negative) Imaging Data Chest x-ray: Radiologist's Impresson: PROCEDURE:? XR CHEST 1V ? INDICATIONS:? chest pain ? TECHNIQUE:? One view of the chest was acquired.? ? COMPARISON:? [facility], , XR CHEST 1 VIEW, 05/27/2022, 12:35. ? FINDINGS:? ? Surgical changes and devices:? None.? ? Lungs and pleura:? Lungs are clear.? No pleural effusions or pneumothorax.? ? Mediastinum:? Mediastinal contours appear normal.? Heart size is enlarged. ? Bones and chest wall:? No suspicious bony lesions.? Overlying soft tissues appear unremarkable.? ? IMPRESSION:? No acute pulmonary process. ? ? Dictated by: Aydee Zambrano M.D. on 07/31/2022 at 8:52 ? CT scan - head: Radiologist's Impresson: PROCEDURE:? CT HEAD/BRAIN WO CON ? INDICATIONS:? fall weakness ? TECHNIQUE:? Noncontrast 4.5 mm thick angled axial sections acquired from the foramen magnum to the vertex, with coronal and sagittal reformats.? For radiation dose reduction, the following was used:? automated exposure control, adjustment of mA and/or kV according to patient size.? ? COMPARISON:? None. ? FINDINGS:? Image quality:? Excellent.? ? CSF spaces:? Basal cisterns are patent.? No extra-axial fluid collections.? Ventricles are normal in size and shape.? ? Brain:? No midline shift.? No intracranial masses or hemorrhage.? Vyas-white matter interface is normal.? Moderate cerebral and cerebellar volume loss with multifocal white matter chronic ischemic change noted.? Atherosclerotic calcification noted associated with cavernous segments of both internal carotid arteries. ? Skull and face:? Calvarium and visualized facial bones are intact, without suspicious lesions.? Bilateral intraocular lens replacements noted.? Incidental hyperostosis frontalis interna noted. ? Sinuses:? Right maxillary sinus air-fluid ? IMPRESSION:? ? Atrophy and ischemic change intracranial hemorrhage or mass effect.? ? Incidental air-fluid level right maxillary sinus could reflect acute sinusitis ? ? ? Approved by: Cachorro García M.D. on 07/31/2022 at 9:27? CT scan - chest: Radiologist's Impresson: PROCEDURE:? CT ANGIO CHEST PE PROTOCOL ? INDICATIONS:? short of breath ? TECHNIQUE:? After the administration of intravenous contrast, 2 mm thick sections acquired from the pulmonary apices to the posterior costophrenic angles.? 3-dimensional maximum intensity projection (MIP) coronal and sagittal reformats were then acquired through the thorax.? For radiation dose reduction, the following was used:? automated exposure control, adjustment of mA and/or kV according to patient size.? ? COMPARISON:? None. ? FINDINGS:? Image quality:? Excellent.? ? Pulmonary arteries:? Pulmonary arteries are normal in size, and demonstrate no intraluminal filling defects to suggest central pulmonary embolism.? ? Lungs and pleura:? Focal consolidative radiopacities are present within the medial aspect of the left lower lobe.? There is mild bilateral dependent atelectasis at the lung bases. ? Mediastinum:? Heart size is normal, without pericardial effusion.? No mediastinal or hilar adenopathy.? Thoracic aorta is normal in caliber and enhancement.? Esophagus is normal in caliber.? There is a large hiatal hernia. ? Bones and chest wall:? No suspicious bony lesions.? Ribs and thoracic spine appear intact throughout.? Thyroid gland is unremarkable.? No axillary or supraclavicular adenopathy.? ? Abdomen:? Visualized upper abdominal solid organs appear normal in the early arterial phase of enhancement.? ? IMPRESSION:? ? 1. No acute pulmonary embolus. ? 2. Focal consolidative radiopacities within the left lower lobe.? Differential considerations include aspiration/infection and neoplasm.? Short interval follow-up to resolution is recommended. ? 3. Large hiatal hernia.? ? ? Dictated by: Arianna Rutherford M.D. on 07/31/2022 at 11:43 ? ? Approved by: Arianna Rutherford M.D. on 07/31/2022 at 11:49 ? ECG Data Interpretation: Atrial fibrillation rate [address] changes MDM Narrative Medical decision making narrative: Patient is 76-year-old female history of atrial fibrillation recent admission for anemia at [facility] no longer on Eliquis presents today with generalized weakness. She says that her legs kind of gave out on her. She denies chest pain or palpitation but upon further questioning actually does report that she might be short of breath. She is in AFib with RVR heart rate quickly improves with 10 mg of diltiazem. BNP is noted to be elevated 2200. She reports that she does not take her furosemide 20 mg daily as directed because she does not like urinating all day. She has mild leukocytosis of 11 she is afebrile. She did recently travel to [place] and has not been on Eliquis turn for possible pulmonary embolism CT angio did not show any PE or evidence of congestive heart failure. Urinalysis is positive nitrites leukocytes and many bacteria. No evidence of sepsis she is afebrile without hypotension will treat her with antibiotics. Patient ambulated without difficulty now. Able to treat as outpatient Discharge Plan Departure Patient Disposition: Home Clinical Impression: Acute UTI, Atrial fibrillation, Congestive heart failure Instructions: DI for Atrial Fibrillation, DI for Urinary Tract Infection (UTI) Activity Restrictions/Additional Instructions: *You have been diagnosed with UTI, atrial fibrillation, congestive heart *What to do: At this time you do have a bladder infection which likely causing your weakness. Please start antibiotics today trying get 2 doses in today if possible *Continue to take medications as directed Macrobid 100 mg twice a day for 7 days--> [facility] Furosemide 20 mg once a day for 2-3 days *Follow up with your primary care provider in 2-3 days or call [phone] *Return to ER if you should have increasing confusion, chest pain shortness of breath, or any new, worsening or concerning symptoms Prescriptions: New nitrofurantoin monohyd/m-cryst [Macrobid] 100 mg capsule 100 mg PO Q12H 7 Days Qty: 14 0RF Rx Instructions: must administer with a meal/food No Action atorvastatin 40 mg Tablet 40 mg PO DAILY metoprolol succinate 50 mg Tablet Extended Release 24 Hr 25 mg PO BID sumatriptan succinate 100 mg Tablet 100 mg PO DAILY PRN (Reason: Headaches) Rx Instructions: take 1 tab at onset of headache; if no relief, may repeat 1 tab after at least 2 hrs; max = 2 tabs/24 hrs amlodipine 5 mg Tablet 5 mg PO DAILY aspirin 81 mg Tablet,Delayed Release (Dr/Ec) 81 mg PO DAILY levothyroxine [Synthroid] 150 mcg Tablet 150 mcg PO SEEINSTR Rx Instructions: Pt takes 5 days, then off x 2 days omeprazole 20 mg Capsule,Delayed Release(Dr/Ec) 40 mg PO QAM escitalopram oxalate 20 mg Tablet 20 mg PO DAILY cetirizine [Zyrtec] 10 mg Tablet 10 mg PO DAILY PRN (Reason: Seasonal allergies) acetaminophen 500 mg capsule 500 mg PO Q4H MDD Max 3000 mg per day PRN (Reason: fever or pain) Qty: 90 0RF ibuprofen 400 mg Tablet 400 mg PO Q6HR MDD Max 2400 mg per day PRN (Reason: Pain/inflammation) Qty: 90 0RF Referrals: Lizzeth Kendall PA-C [Primary Care Provider] - Stand Alone Forms: Patient Portal/API
[2022-07-31 08:50] LABS: Add Manual Diff / Slide Review YES; Hematocrit 39.2 % (36-46); Mean Corpuscular HGB Conc 33.1 % (30-36); Mean Corpuscular Hemoglobin 27.8 PG (26-34); Mean Corpuscular Volume 84.1 fL (80-100); Platelet Count 174 X10^3/uL (150-400); Red Blood Cell Count 4.67 X10^6/uL (4.0-5.2); Red Cell Distribution Width 26.6 % (11.6-14.8); White Blood Cell Count 11.6 X10^3/uL (4.5-11.0)
[2022-07-31] MEDS: dilTIAZem 5 MG/ML SDV 10 MG IV (08:56)
[2022-07-31 08:57] LABS: INR 1.3 (0.9-1.3); Prothrombin Time 14.6 SECONDS (10.1-12.7)
[2022-07-31 08:57] LABS: COVID19 -Nasal RAPID Negative (Negative)
[2022-07-31 09:00] LABS: PTT Partial Thromboplastin Tim 26 SECONDS (26-36)
[2022-07-31 09:06] LABS: Neutrophils Absolute Manual 9512 /uL (3000-5900); Total Cells Counted 100
[2022-07-31 09:07] LABS: Anisocytosis 2+; Poikilocytosis 1+
[2022-07-31 09:33] LABS: NT-proBNP (BNP-Adult 18+) 2230 pg/mL (<450); Troponin I < 0.012 ng/mL (0.01-0.034)
[2022-07-31 09:46] LABS: Alanine Aminotransferase 15 IU/L (<35); Albumin 3.6 g/dL (3.5-5.0); Albumin Globulin Ratio 1.1 (1.0-2.8); Alkaline Phosphatase 88 U/L (38-126); Aspartate Aminotransferase 16 IU/L (14-36); BUN Creatinine Ratio 17.9 (6-22); Bilirubin Total 2.2 mg/dL (0.2-1.3); Blood Urea Nitrogen 14 mg/dL (7-17); Calcium 8.4 mg/dL (8.4-10.2); Carbon Dioxide 22 mmol/L (22-32); Chloride 103 mmol/L (98-107); Estimated Glomerular Filt Rate > 60 mL/min (>60); Globulin 3.2 g/dL (1.7-4.1); Glucose 127 mg/dL (80-110); Lipase 55 U/L (23-300); Potassium 3.6 mmol/L (3.4-5.1); Sodium 133 mmol/L (137-145); Total Protein 6.8 g/dL (6.3-8.2)
--- NOTE | 2022-07-31 09:53 | DI.CT.S_ITS ---
PROCEDURE: CT HEAD/BRAIN WO CON INDICATIONS: fall weakness TECHNIQUE: Noncontrast 4.5 mm thick angled axial sections acquired from the foramen magnum to the vertex, with coronal and sagittal reformats. For radiation dose reduction, the following was used: automated exposure control, adjustment of mA and/or kV according to patient size. COMPARISON: None. FINDINGS: Image quality: Excellent. CSF spaces: Basal cisterns are patent. No extra-axial fluid collections. Ventricles are normal in size and shape. Brain: No midline shift. No intracranial masses or hemorrhage. Vyas-white matter interface is normal. Moderate cerebral and cerebellar volume loss with multifocal white matter chronic ischemic change noted. Atherosclerotic calcification noted associated with cavernous segments of both internal carotid arteries. Skull and face: Calvarium and visualized facial bones are intact, without suspicious lesions. Bilateral intraocular lens replacements noted. Incidental hyperostosis frontalis interna noted. Sinuses: Right maxillary sinus air-fluid IMPRESSION: Atrophy and ischemic change intracranial hemorrhage or mass effect. Incidental air-fluid level right maxillary sinus could reflect acute sinusitis Approved by: Cachorro García M.D. on 07/31/2022 at 9:27
[2022-07-31 10:14] LABS: Creatine Kinase 21 U/L (30-135); HEMOLYSIS 17 (0-50)
--- NOTE | 2022-07-31 11:22 | DI.CT.S_ITS ---
PROCEDURE: CT ANGIO CHEST PE PROTOCOL INDICATIONS: short of breath TECHNIQUE: After the administration of intravenous contrast, 2 mm thick sections acquired from the pulmonary apices to the posterior costophrenic angles. 3-dimensional maximum intensity projection (MIP) coronal and sagittal reformats were then acquired through the thorax. For radiation dose reduction, the following was used: automated exposure control, adjustment of mA and/or kV according to patient size. COMPARISON: None. FINDINGS: Image quality: Excellent. Pulmonary arteries: Pulmonary arteries are normal in size, and demonstrate no intraluminal filling defects to suggest central pulmonary embolism. Lungs and pleura: Focal consolidative radiopacities are present within the medial aspect of the left lower lobe. There is mild bilateral dependent atelectasis at the lung bases. Mediastinum: Heart size is normal, without pericardial effusion. No mediastinal or hilar adenopathy. Thoracic aorta is normal in caliber and enhancement. Esophagus is normal in caliber. There is a large hiatal hernia. Bones and chest wall: No suspicious bony lesions. Ribs and thoracic spine appear intact throughout. Thyroid gland is unremarkable. No axillary or supraclavicular adenopathy. Abdomen: Visualized upper abdominal solid organs appear normal in the early arterial phase of enhancement. IMPRESSION: 1. No acute pulmonary embolus. 2. Focal consolidative radiopacities within the left lower lobe. Differential considerations include aspiration/infection and neoplasm. Short interval follow-up to resolution is recommended. 3. Large hiatal hernia. Dictated by: Arianna Rutherford M.D. on 07/31/2022 at 11:43 Approved by: Arianna Rutherford M.D. on 07/31/2022 at 11:49
[2022-07-31 12:04] LABS: Appearance Urine UA CLOUDY; Bilirubin Urine UA NEGATIVE (NEGATIVE); Color Urine UA ORANGE; Glucose Urine UA NEGATIVE (Negative); Ketones Urine UA TRACE (NEGATIVE); Leukocyte Esterase Urine UA 1+ (NEGATIVE); Nitrite Urine UA POSITIVE (Negative); Occult Blood Urine UA 1+ (Negative); Protein Urine UA 1+ (Negative); Specific Gravity Urine UA >=1.030 (1.000-1.035)
[2022-07-31 12:08] LABS: Bacteria Urine Many (>30); Culture Indicated Urine Specimen Cultured; RBC Urine 1-5/HPF (0-5/HPF); Squamous Epithelial Cell Urine 1-5 /HPF (0-5/HPF); WBC Urine 5-10/HPF (0-5/HPF)
[2022-07-31] MEDS: METOPROLOL ER 50 MG TABLET PO (12:16)
== END 2022-07-31 12:45 | disposition home or self-care (01) ==
PROVIDERS: Emergency Provider Emergency Medicine; PCP Physician Assistant
DX: N39.0 Urinary tract infection, site not specified (principal); I48.91 Unspecified atrial fibrillation; I50.9 Heart failure, unspecified
CPT/HCPCS: 36415; 70450; 71045; 71275; 80053; 81001; 82550; 83690; 83880; 84484; 85007; 85025; 85610; 85730; 87077; 87086; 87186; 87635; 93005; 99285; C9803; Q9967

== ENCOUNTER 2022-08-03 08:13 | Inpatient (IN) | payer MEDICARE, OTHER, SELFPAY ==
[2021-08-18 23:52] VITALS: BMI 31.1
[2022-08-03] VITALS (35 sets, daily range): BP systolic 117–163; BP diastolic 67–100; PULSE 94–156; RESP 14–36; TEMP 36.9–37.8; O2SAT 90–97; BMI 33.4; BMI 33.0
--- NOTE | 2022-08-03 08:36 | DI.RAD.S_ITS ---
PROCEDURE: XR KNEE RT 3V INDICATIONS: fall/pain TECHNIQUE: 3 views of the knee were acquired. COMPARISON: None. FINDINGS: Bones: No fractures or dislocations. No suspicious bony lesions. Tricompartmental arthritic change most severe medially. Soft tissues: No joint effusion. No suspicious soft tissue calcifications. IMPRESSION: No visualized acute fracture or dislocation. However, if clinical concern and/or pain persist, short interval imaging followup in 7-10 days is recommended, as occult injury cannot be definitively excluded. Dictated by: Aydee Zambrano M.D. on 08/03/2022 at 9:28 Approved by: Aydee Zambrano M.D. on 08/03/2022 at 9:31
--- NOTE | 2022-08-03 08:39 | ED_ITS ---
HPI - Fall General Chief Complaint: Fall Stated Complaint: gen weakness/ GLF Time Seen by Provider: 08/03/22 08:30 Source: patient Mode of arrival: EMS History of Present Illness HPI Narrative: Patient brought in by ambulance from home for complaints right knee pain and generalized weakness. Patient was trying to feed her dog and was leaning over and lost her balance and landed on her right knee on the linoleum. Denies any other injuries or pain. No head injury pain no neck back pelvis hips arms spine pain from the fall this morning. Patient has history of chronic atrial fibrillation. She is on baby aspirin only. Patient seen here 3 days ago and placed on antibiotics for UTI. Patient states and bike has made her nauseous. Unable to eat or drink. She feels dehydrated. Heart rate noted. I did review chart from 3 days ago. Patient arrived here in atrial fibrillation and received Cardizem IV which improved significantly her AFib with RVR. Denies any cough cold congestion. No fever or chills. Patient was sent home on Macrobid. Culture sensitivity has returned. E coli positive. No resistance on provided sensitivity. Patient denies any chest pain or palpitations or dyspnea Related Data Home Medications Medication Instructions Recorded Confirmed amlodipine 5 mg tablet 5 mg PO DAILY 08/17/21 08/03/22 aspirin 81 mg tablet,delayed 81 mg PO DAILY 08/17/21 08/03/22 release atorvastatin 40 mg tablet 40 mg PO DAILY 08/17/21 08/03/22 cetirizine 10 mg tablet (Zyrtec) 10 mg PO DAILY PRN Seasonal 08/17/21 08/03/22 allergies escitalopram oxalate 20 mg tablet 20 mg PO DAILY 08/17/21 08/03/22 omeprazole 20 mg capsule,delayed 40 mg PO QAM 08/17/21 08/03/22 release sumatriptan succinate 100 mg tablet 100 mg PO DAILY PRN Headaches 08/17/21 08/03/22 Previous Rx's Medication Instructions Recorded acetaminophen 500 mg capsule 500 mg PO Q4H PRN fever or pain 08/20/21 #90 caps apixaban 5 mg tablet (Eliquis) 5 mg PO BID #60 tabs 08/06/22 furosemide 40 mg tablet 40 mg PO DAILY #30 tabs 08/06/22 levothyroxine 75 mcg tablet 175 mcg PO DAILY@0600 #30 tabs 08/06/22 (Synthroid) metoprolol succinate 50 mg 100 mg PO BID #60 tabs 08/06/22 tablet,extended release 24 hr potassium chloride 20 mEq 20 meq PO DAILY #30 tabs 08/06/22 tablet,extended release Allergies Allergy/AdvReac Type Severity Reaction Status Date / Time sulfamethoxazole AdvReac Intermediate Nausea Verified 08/04/22 14:51 [From Bactrim] trimethoprim [From Bactrim] AdvReac Intermediate Nausea Verified 08/04/22 14:51 Review of Systems Review of Systems Narrative: GENERAL: negative chills, positive fatigue, malaise, negative fever, sweats. HEENT: negative sinus pain, ear pain, sore throat RESPIRATORY: negative dyspnea, cough CARDIOVASCULAR: negative chest pain, palpitations GASTROINTESTINAL: Positive nausea, negative vomiting, abdominal pain : negative dysuria, positive frequency, negative hematuria MUSCULOSKELETAL: Positive muscle or bony pain SKIN: negative rash, skin lesions NEUROLOGIC: negative weakness, numbness ROS Unobtainable: All systems reviewed & are unremarkable except as noted in HPI and below Patient History Medical History Anxiety Depression Easy bruisability GERD (gastroesophageal reflux disease) HLD (hyperlipidemia) HTN (hypertension) Hypothyroidism Seasonal allergies TIA (transient ischemic attack) (02/2020) Wrist fracture (01/2019) Surgical History History of bladder surgery (2003) History of hip surgery (04/2020) Hx of bilateral cataract extraction Hx of cholecystectomy (12/2019) Social History household members: family Smoking Status: Former smoker alcohol intake: former Smoking Status: Former smoker tobacco type: cigarettes alcohol intake frequency: 0-2 drinks per day Substance Use Type: does not use Exam Narrative Exam Narrative: GENERAL: in no distress, not toxic not dyspneic HEAD: Normocephalic. EYES: Pupils equal round ENT: Mucous membranes moist. NECK: Trachea midline. CARDIOVASCULAR: Tachycardia with irregular irregular rate and rhythm without murmurs RESPIRATORY: Clear to auscultation. Breath sounds equal bilaterally. No wheezes, rales, or rhonchi. GASTROINTESTINAL: Abdomen soft, non-tender EXTREMITIES: No gross deformities. Examination right lower extremity nontender knee no bruising edema. Able to fully flex and extend at the knee without diffi culty. No gross deformity. BACK: No flank tenderness. NEURO: AOx4. SKIN: Warm and dry PSYCH: Not anxious, is cooperative Initial Vital Signs Initial Vital Signs: Vital Signs Temperature 98.4 F 08/03/22 08:22 Pulse Rate 154 H 08/03/22 08:22 Respiratory Rate 20 08/03/22 08:22 Blood Pressure 153/98 H 08/03/22 08:22 Pulse Oximetry 96 08/03/22 08:22 Oxygen Delivery Method Room Air 08/03/22 08:22 Course Orders Ordered: Discontinued Medications Acetaminophen (Acetaminophen 325 Mg Tablet) 650 mg PO Q6H PRN PRN Reason: Fever/Mild Pain (1-3) Last Admin: 08/04/22 02:16 Dose: 650 mg Documented By: NESSA Amlodipine Besylate (Amlodipine 5 Mg Tablet) 5 mg PO DAILY [facility] Last Admin: 08/06/22 08:40 Dose: 5 mg Documented By: Admin: 08/05/22 08:45 Dose: 5 mg Documented By: Admin: 08/04/22 08:58 Dose: 5 mg Documented By: CHARLENE Apixaban (Apixaban 5 Mg Tablet) 5 mg PO BID [facility] Last Admin: 08/06/22 08:40 Dose: 5 mg Documented By: Admin: 08/05/22 20:51 Dose: 5 mg Documented By: Aspirin (Aspirin 81 Mg Chew Tab) 324 mg PO NOW ONE Stop: 08/03/22 08:30 Last Admin: 08/03/22 08:57 Dose: Not Given Documented By: RENZO Aspirin (Aspirin Ec 81 Mg Tablet) 81 mg PO DAILY [facility] Last Admin: 08/06/22 08:40 Dose: 81 mg Documented By: Admin: 08/05/22 08:44 Dose: 81 mg Documented By: Admin: 08/04/22 08:59 Dose: 81 mg Documented By: CHARLENE Atorvastatin Calcium (Atorvastatin 20 Mg Tablet) 40 mg PO BEDTIME [facility] Last Admin: 08/05/22 20:51 Dose: 40 mg Documented By: Admin: 08/04/22 22:12 Dose: 40 mg Documented By: Admin: 08/03/22 20:13 Dose: 40 mg Documented By: NESSA Digoxin (Digoxin 500 Mcg/2 Ml Ampul) 500 mcg IV NOW ONE Stop: 08/05/22 12:05 Last Admin: 08/05/22 12:22 Dose: 500 mcg Documented By: Diltiazem HCl (Diltiazem 5 Mg/Ml Sdv) 10 mg IV NOW ONE Stop: 08/03/22 08:39 Last Admin: 08/03/22 08:57 Dose: 10 mg Documented By: RENZO Diltiazem HCl (Diltiazem Cd 180 Mg Cap) 180 mg PO NOW ONE Stop: 08/03/22 13:10 Last Admin: 08/03/22 13:21 Dose: 180 mg Documented By: KB Enoxaparin Sodium (Enoxaparin 40 Mg/0.4 Ml Syringe) 40 mg SUBCUT DAILY [facility] Last Admin: 08/05/22 08:45 Dose: 40 mg Documented By: Admin: 08/04/22 08:57 Dose: 40 mg Documented By: CHARLENE Furosemide (Furosemide 40 Mg/4 Ml Vial) 20 mg IV DAILY [facility] Last Admin: 08/03/22 18:27 Dose: 20 mg Documented By: BELA Furosemide (Furosemide 20 Mg/2 Ml Vial) 20 mg IV DAILY [facility] Last Admin: 08/06/22 08:40 Dose: 20 mg Documented By: Admin: 08/05/22 08:45 Dose: 20 mg Documented By: Admin: 08/04/22 10:56 Dose: 20 mg Documented By: Sodium Chloride (Normal Saline 0.9%) 1,000 mls @ 1,000 mls/hr IV BOLUS ONE Stop: 08/03/22 09:36 Last Infusion: 08/03/22 10:02 Dose: 0 mls/hr Documented By: Admin: 08/03/22 08:56 Dose: 1,000 mls/hr Documented By: RENZO DILTIAZEM (Diltiazem 125 Mg/125 Ml-D5w) 125 mg in 125 mls @ 5 mls/hr IV TITRATE ALLI; Protocol Last Admin: 08/04/22 01:17 Dose: 15 mg/hr, 15 mls/hr Documented By: Titration: 08/04/22 01:17 Dose: 15 mg/hr, 15 mls/hr Documented By: Titration: 08/04/22 01:02 Dose: 15 mg/hr, 15 mls/hr Documented By: Titration: 08/03/22 19:47 Dose: 10 mg/hr, 10 mls/hr Documented By: Titration: 08/03/22 18:02 Dose: 15 mg/hr, 15 mls/hr Documented By: Titration: 08/03/22 16:42 Dose: 10 mg/hr, 10 mls/hr Documented By: Titration: 08/03/22 16:10 Dose: 5 mg/hr, 5 mls/hr Documented By: Admin: 08/03/22 15:17 Dose: 5 mg/hr, 5 mls/hr Documented By: RENZO Levofloxacin (Levaquin) 750 mg in 150 mls @ 100 mls/hr IV Q24H ALLI Stop: 08/06/22 15:44 Last Infusion: 08/03/22 19:47 Dose: 0 mls/hr Documented By: Admin: 08/03/22 16:37 Dose: 100 mls/hr Documented By: BELA Sodium Chloride (Normal Saline 0.9%) 1,000 mls @ 100 mls/hr IV CONT ALLI Stop: 08/04/22 03:44 Last Infusion: 08/03/22 19:47 Dose: 0 mls/hr Documented By: Infusion: 08/03/22 16:34 Dose: 100 mls/hr Documented By: Admin: 08/03/22 15:58 Dose: 100 mls/hr Documented By: RENZO Amiodarone HCl/Dextrose (Nexterone) 150 mg in 100 mls @ 600 mls/hr IV NOW ONE; Protocol Stop: 08/04/22 07:31 Last Admin: 08/04/22 07:58 Dose: 600 mls/hr Documented By: CHARLENE Amiodarone HCl/Dextrose (Nexterone) 360 mg in 200 mls @ 33.333 mls/hr IV NOW ONE; Protocol Stop: 08/04/22 13:21 Last Admin: 08/04/22 08:23 Dose: 33.333 mls/hr, 33.33 mls/hr Documented By: CHARLENE Amiodarone HCl/Dextrose (Nexterone) 360 mg in 200 mls @ 16.7 mls/hr IV CONT ALLI; Protocol Stop: 08/05/22 01:29 Last Admin: 08/04/22 14:03 Dose: 16.7 mls/hr, 16.7 mls/hr Documented By: Ceftriaxone Sodium 1,000 mg/ (Sodium Chloride) 100 mls @ 200 mls/hr IV Q24H ALLI Stop: 08/06/22 07:59 Last Infusion: 08/05/22 09:14 Dose: 0 mls/hr Documented By: Admin: 08/05/22 08:44 Dose: 200 mls/hr Documented By: Infusion: 08/04/22 10:01 Dose: 0 mls/hr Documented By: Admin: 08/04/22 08:54 Dose: 200 mls/hr Documented By: CHARLENE Amiodarone HCl/Dextrose (Nexterone) 180 mg in 100 mls @ 16.7 mls/hr IV CONT ALLI; Protocol Stop: 08/05/22 07:30 Last Admin: 08/05/22 07:41 Dose: Not Given Documented By: Amiodarone HCl/Dextrose (Nexterone) 360 mg in 200 mls @ 16.7 mls/hr IV CONT ALLI; Protocol Stop: 08/05/22 13:44 Last Infusion: 08/05/22 12:06 Dose: 0 mls/hr Documented By: Admin: 08/05/22 01:41 Dose: 16.7 mls/hr Documented By: Levothyroxine Sodium (Levothyroxine 75 Mcg Tablet) 150 mcg PO 0600 ALLI Last Admin: 08/06/22 06:34 Dose: 150 mcg Documented By: Admin: 08/05/22 06:13 Dose: 150 mcg Documented By: Admin: 08/04/22 05:32 Dose: 150 mcg Documented By: NESSA Levothyroxine Sodium (Levothyroxine 75 Mcg Tablet) 175 mcg PO DAILY@0600 [facility] Lorazepam (Lorazepam 0.5 Mg Tablet) 0.5 mg PO TID PRN PRN Reason: Anxiety Last Admin: 08/05/22 20:57 Dose: 0.5 mg Documented By: Admin: 08/04/22 22:17 Dose: 0.5 mg Documented By: Admin: 08/04/22 15:43 Dose: 0.5 mg Documented By: CHARLENE Lorazepam (Lorazepam 1 Mg Tablet) 1 mg PO Q6HR PRN PRN Reason: Anxiety Melatonin (Melatonin 3 Mg Tablet) 6 mg PO BEDTIME PRN PRN Reason: Insomnia Last Admin: 08/04/22 02:16 Dose: 6 mg Documented By: CB Metoclopramide HCl (Metoclopramide Hcl 5 Mg Tablet) 10 mg PO NOW ONE Stop: 08/03/22 10:29 Last Admin: 08/03/22 11:34 Dose: 10 mg Documented By: RENZO Metoprolol Succinate (Metoprolol Er 25 Mg Tablet) 25 mg PO NOW ONE Stop: 08/03/22 09:51 Last Admin: 08/03/22 10:13 Dose: 25 mg Documented By: RENZO Metoprolol Succinate (Metoprolol Er 25 Mg Tablet) 25 mg PO BID [facility] Last Admin: 08/04/22 09:00 Dose: 25 mg Documented By: CHARLENE Metoprolol Succinate (Metoprolol Er 25 Mg Tablet) 50 mg PO BID [facility]I Metoprolol Succinate (Metoprolol Er 50 Mg Tablet) 50 mg PO BID [facility] Metoprolol Succinate (Metoprolol Er 50 Mg Tablet) 100 mg PO BID [facility] Last Admin: 08/06/22 08:39 Dose: 100 mg Documented By: Admin: 08/05/22 20:51 Dose: 100 mg Documented By: Metoprolol Tartrate (Metoprolol Ir 50 Mg Tablet) 50 mg PO Q6HR [facility] Last Admin: 08/05/22 17:24 Dose: Not Given Documented By: Admin: 08/05/22 13:00 Dose: 50 mg Documented By: Admin: 08/05/22 06:35 Dose: 50 mg Documented By: Admin: 08/04/22 23:56 Dose: 50 mg Documented By: Admin: 08/04/22 17:32 Dose: 50 mg Documented By: Naloxone HCl (Naloxone 0.4 Mg/Ml Vial) 0.2 mg IV Q2MIN PRN PRN Reason: Opiate Reversal Ondansetron HCl (Ondansetron 4 Mg/2 Ml Inj) 4 mg IV Q4HR PRN PRN Reason: Nausea And Vomiting Last Admin: 08/04/22 08:57 Dose: 4 mg Documented By: CHARLENE Pantoprazole Sodium (Pantoprazole Dr 40 Mg Tablet) 40 mg PO 0600 [facility] Last Admin: 08/06/22 06:34 Dose: 40 mg Documented By: Admin: 08/05/22 06:13 Dose: 40 mg Documented By: Admin: 08/04/22 05:32 Dose: 40 mg Documented By: NESSA Polyethylene Glycol (Polyethylene Glycol 3350 17 Gm Powd.Pack) 17 gm PO DAILY PRN PRN Reason: Constipation Potassium Chloride (Potassium Chloride 20 Meq Tab) 40 meq PO NOW ONE Stop: 08/03/22 18:31 Last Admin: 08/03/22 18:26 Dose: 40 meq Documented By: BELA Potassium Chloride (Potassium Chloride 20 Meq Tab) 40 meq PO NOW ONE Stop: 08/04/22 07:39 Last Admin: 08/04/22 08:11 Dose: 40 meq Documented By: CHARLENE Potassium Chloride (Potassium Chloride 20 Meq Tab) 40 meq PO 1400 ONE Stop: 08/04/22 14:01 Last Admin: 08/04/22 14:02 Dose: 40 meq Documented By: Prochlorperazine (Prochlorperazine 10 Mg/2 Ml Vial) 10 mg IV Q6HR PRN PRN Reason: Nausea Sennosides (Sennosides 8.6 Mg Tablet) 8.6 mg PO BID PRN PRN Reason: Constipation Last Admin: 08/04/22 09:01 Dose: 8.6 mg Documented By: Admin: 08/03/22 20:13 Dose: 8.6 mg Documented By: NESSA Trimethoprim/Sulfamethoxazole (Trimeth/Sulfa 160/800 (Ds) Tablet) 1 tab PO NOW ONE Stop: 08/03/22 10:29 Last Admin: 08/03/22 11:34 Dose: 1 tab Documented By: RENZO Vital Signs Vital signs: Vital Signs - 8 hr 08/03/22 08:22 08/03/22 08:57 08/03/22 08:22 Temperature 98.4 F Pulse Rate 154 H 156 H 136 H Respiratory Rate 20 18 Blood Pressure 153/98 H 150/100 H Pulse Oximetry 96 95 Oxygen Delivery Method Room Air 08/03/22 08:30 08/03/22 08:30 08/03/22 09:00 Temperature Pulse Rate 142 H Respiratory Rate 32 H Blood Pressure 150/100 H 129/80 Pulse Oximetry 95 Oxygen Delivery Method 08/03/22 09:00 08/03/22 10:13 08/03/22 09:30 Temperature Pulse Rate 104 H 113 H 106 H Respiratory Rate 29 H 30 H Blood Pressure 138/84 Pulse Oximetry 94 96 Oxygen Delivery Method Room Air 08/03/22 10:00 08/03/22 10:13 08/03/22 10:13 Temperature Pulse Rate 107 H 114 H Respiratory Rate 29 H 30 H Blood Pressure 138/84 Pulse Oximetry 96 94 Oxygen Delivery Method 08/03/22 11:35 08/03/22 10:30 08/03/22 10:30 Temperature Pulse Rate 118 H 110 H Respiratory Rate Blood Pressure 150/86 H 147/88 H Pulse Oximetry 96 Oxygen Delivery Method 08/03/22 11:00 08/03/22 11:00 08/03/22 11:35 Temperature Pulse Rate 118 H 150 H Respiratory Rate 14 Blood Pressure 150/86 H Pulse Oximetry 96 Oxygen Delivery Method 08/03/22 11:36 08/03/22 11:36 08/03/22 12:00 Temperature Pulse Rate 154 H Respiratory Rate Blood Pressure 160/97 H 163/79 H Pulse Oximetry 90 L Oxygen Delivery Method 08/03/22 12:00 08/03/22 12:30 08/03/22 12:30 Temperature Pulse Rate 130 H 129 H Respiratory Rate 27 H Blood Pressure 139/96 H Pulse Oximetry 94 Oxygen Delivery Method Room Air 08/03/22 13:00 08/03/22 13:30 08/03/22 14:00 Temperature Pulse Rate 136 H 147 H 131 H Respiratory Rate 29 H 20 Blood Pressure Pulse Oximetry 97 Oxygen Delivery Method Room Air 08/03/22 14:30 08/03/22 14:46 08/03/22 14:46 Temperature Pulse Rate 125 H 135 H Respiratory Rate 20 20 Blood Pressure 136/90 136/90 Pulse Oximetry 95 Oxygen Delivery Method 08/03/22 15:00 08/03/22 15:00 Temperature Pulse Rate 140 H Respiratory Rate Blood Pressure 137/75 Pulse Oximetry 96 Oxygen Delivery Method - Fall Lab Data 08/06/22 04:00 08/06/22 04:00 Labs: Lab Results 08/03/22 08/03/22 08/03/22 Range/Units 08:44 08:44 08:44 WBC 7.4 (4.5-11.0) X10^3/uL RBC 4.43 (4.0-5.2) X10^6/uL Hgb 12.7 (12.0-16.0) g/dL Hct 36.6 (36-46) % MCV 82.7 (80-100) fL MCH 28.7 (26-34) PG MCHC 34.7 (30-36) % RDW 26.0 H (11.6-14.8) % Plt Count 137 L (150-400) X10^3/uL Neut % (Auto) 85.6 H (50-75) % Lymph % (Auto) 4.2 L (25-40) % [place] % (Auto) 9.7 (3-14) % Eos % (Auto) 0.0 L (2-4) % Baso % (Auto) 0.5 (0-2) % Neut # (Auto) 6300 (2545-8604) /uL Lymph # (Auto) 300 L (8056-6743) /uL [place] # (Auto) 700 (0-900) /uL Eos # (Auto) 0 (0-450) /uL Baso # (Auto) 0 (0-100) /uL RBC Morphology See below Anisocytosis 2+ H PT 14.5 H (10.1-12.7) SECONDS INR 1.3 (0.9-1.3) APTT 25 L (26-36) SECONDS Sodium 131 L (137-145) mmol/L Potassium 3.4 (3.4-5.1) mmol/L Chloride 97 L (98-107) mmol/L Carbon Dioxide 25 (22-32) mmol/L BUN 13 (7-17) mg/dL Creatinine 0.63 (0.52-1.04) mg/dL Estimated GFR > 60 (>60) mL/min BUN/Creatinine Ratio 20.6 (6-22) Glucose 124 H (80-110) mg/dL Lactate (0.7-2.1) mmol/L Calcium 8.4 (8.4-10.2) mg/dL Magnesium 1.9 (1.6-2.3) mg/dL Total Bilirubin 1.5 H (0.2-1.3) mg/dL AST 33 (14-36) IU/L ALT 25 (<35) IU/L Alkaline Phosphatase 102 (38-126) U/L Total Creatine Kinase 47 (30-135) U/L CK-MB (CK-2) TNP CK-MB (CK-2) Rel Index TNP Troponin I < 0.012 (0.01-0.034) ng/mL Total Protein 6.9 (6.3-8.2) g/dL Albumin 3.5 (3.5-5.0) g/dL Globulin 3.4 (1.7-4.1) g/dL Albumin/Globulin Ratio 1.0 (1.0-2.8) Lipase 75 (23-300) U/L Procalcitonin (<0.5) ng/mL TSH (0.47-4.68) uIU/mL Free T4 (0.78-2.19) ng/dL Urine Color Urine Appearance Urine pH (4.5-8.0) Ur Specific [place] (1.000-1.035) Urine Protein (Negative) Urine Glucose (UA) (Negative) g/dL Urine Ketones (NEGATIVE) Urine Occult Blood (Negative) Urine Nitrate (Negative) Urine Bilirubin (NEGATIVE) Ur Bilirubin Confirm (Negative) Urine Urobilinogen (0.2) E.U./dL Ur Leukocyte Esterase (NEGATIVE) Urine RBC (0-5/HPF) Urine WBC (0-5/HPF) Ur Squamous Epith Cells (0-5/HPF) Urine Bacteria (None) Hyaline Casts (None) Granular Casts (None) Urine Mucus (Negative) Ur Culture Indicated? SARS-CoV-2 (PCR) (Negative) 08/03/22 08/03/22 08/03/22 Range/Units 08:44 08:44 08:44 WBC (4.5-11.0) X10^3/uL RBC (4.0-5.2) X10^6/uL Hgb (12.0-16.0) g/dL Hct (36-46) % MCV (80-100) fL MCH (26-34) PG MCHC (30-36) % RDW (11.6-14.8) % Plt Count (150-400) X10^3/uL Neut % (Auto) (50-75) % Lymph % (Auto) (25-40) % [place] % (Auto) (3-14) % Eos % (Auto) (2-4) % Baso % (Auto) (0-2) % Neut # (Auto) (8020-6810) /uL Lymph # (Auto) (0440-2426) /uL [place] # (Auto) (0-900) /uL Eos # (Auto) (0-450) /uL Baso # (Auto) (0-100) /uL RBC Morphology Anisocytosis PT (10.1-12.7) SECONDS INR (0.9-1.3) APTT (26-36) SECONDS Sodium (137-145) mmol/L Potassium (3.4-5.1) mmol/L Chloride (98-107) mmol/L Carbon Dioxide (22-32) mmol/L BUN (7-17) mg/dL Creatinine (0.52-1.04) mg/dL Estimated GFR (>60) mL/min BUN/Creatinine Ratio (6-22) Glucose (80-110) mg/dL Lactate 1.5 (0.7-2.1) mmol/L Calcium (8.4-10.2) mg/dL Magnesium (1.6-2.3) mg/dL Total Bilirubin (0.2-1.3) mg/dL AST (14-36) IU/L ALT (<35) IU/L Alkaline Phosphatase (38-126) U/L Total Creatine Kinase (30-135) U/L CK-MB (CK-2) CK-MB (CK-2) Rel Index Troponin I (0.01-0.034) ng/mL Total Protein (6.3-8.2) g/dL Albumin (3.5-5.0) g/dL Globulin (1.7-4.1) g/dL Albumin/Globulin Ratio (1.0-2.8) Lipase (23-300) U/L Procalcitonin 0.09 (<0.5) ng/mL TSH 8.11 H (0.47-4.68) uIU/mL Free T4 0.83 (0.78-2.19) ng/dL Urine Color Urine Appearance Urine pH (4.5-8.0) Ur Specific [place] (1.000-1.035) Urine Protein (Negative) Urine Glucose (UA) (Negative) g/dL Urine Ketones (NEGATIVE) Urine Occult Blood (Negative) Urine Nitrate (Negative) Urine Bilirubin (NEGATIVE) Ur Bilirubin Confirm (Negative) Urine Urobilinogen (0.2) E.U./dL Ur Leukocyte Esterase (NEGATIVE) Urine RBC (0-5/HPF) Urine WBC (0-5/HPF) Ur Squamous Epith Cells (0-5/HPF) Urine Bacteria (None) Hyaline Casts (None) Granular Casts (None) Urine Mucus (Negative) Ur Culture Indicated? SARS-CoV-2 (PCR) (Negative) 08/03/22 08/03/22 Range/Units 09:08 12:47 WBC (4.5-11.0) X10^3/uL RBC (4.0-5.2) X10^6/uL Hgb (12.0-16.0) g/dL Hct (36-46) % MCV (80-100) fL MCH (26-34) PG MCHC (30-36) % RDW (11.6-14.8) % Plt Count (150-400) X10^3/uL Neut % (Auto) (50-75) % Lymph % (Auto) (25-40) % [place] % (Auto) (3-14) % Eos % (Auto) (2-4) % Baso % (Auto) (0-2) % Neut # (Auto) (3209-5319) /uL Lymph # (Auto) (9881-8929) /uL [place] # (Auto) (0-900) /uL Eos # (Auto) (0-450) /uL Baso # (Auto) (0-100) /uL RBC Morphology Anisocytosis PT (10.1-12.7) SECONDS INR (0.9-1.3) APTT (26-36) SECONDS Sodium (137-145) mmol/L Potassium (3.4-5.1) mmol/L Chloride (98-107) mmol/L Carbon Dioxide (22-32) mmol/L BUN (7-17) mg/dL Creatinine (0.52-1.04) mg/dL Estimated GFR (>60) mL/min BUN/Creatinine Ratio (6-22) Glucose (80-110) mg/dL Lactate (0.7-2.1) mmol/L Calcium (8.4-10.2) mg/dL Magnesium (1.6-2.3) mg/dL Total Bilirubin (0.2-1.3) mg/dL AST (14-36) IU/L ALT (<35) IU/L Alkaline Phosphatase (38-126) U/L Total Creatine Kinase (30-135) U/L CK-MB (CK-2) CK-MB (CK-2) Rel Index Troponin I (0.01-0.034) ng/mL Total Protein (6.3-8.2) g/dL Albumin (3.5-5.0) g/dL Globulin (1.7-4.1) g/dL Albumin/Globulin Ratio (1.0-2.8) Lipase (23-300) U/L Procalcitonin (<0.5) ng/mL TSH (0.47-4.68) uIU/mL Free T4 (0.78-2.19) ng/dL Urine Color [place] Urine Appearance Sl cloudy Urine pH 6.5 (4.5-8.0) Ur Specific [place] 1.025 (1.000-1.035) Urine Protein 2+ H (Negative) Urine Glucose (UA) Trace H (Negative) g/dL Urine Ketones 1+ H (NEGATIVE) Urine Occult Blood 1+ H (Negative) Urine Nitrate Positive H (Negative) Urine Bilirubin 2+ H (NEGATIVE) Ur Bilirubin Confirm Negative (Negative) Urine Urobilinogen >=8.0 (0.2) E.U./dL Ur Leukocyte Esterase Trace H (NEGATIVE) Urine RBC 0-1/hpf (0-5/HPF) Urine WBC 10-30/hpf H (0-5/HPF) Ur Squamous Epith Cells 5-10 /hpf H (0-5/HPF) Urine Bacteria Moderate (10-30) H (None) Hyaline Casts 1-5/lpf (None) Granular Casts 1-5/lpf (None) Urine Mucus 1+ H (Negative) Ur Culture Indicated? Specimen cultured SARS-CoV-2 (PCR) Negative (Negative) Imaging Data Extremity x-ray #1: Radiologist's Impression: IMPRESSION:? No visualized acute fracture or dislocation. However, if clinical concern and/or pain persist, short interval imaging followup in 7-10 days is recommended, as occult injury cannot be definitively excluded. [facility] Narrative Medical decision making narrative: Patient brought in by ambulance from home for complaints right knee pain and generalized weakness. Patient was trying to feed her dog and was leaning over and lost her balance and landed on her right knee on the linoleum. Denies any other injuries or pain. No head injury pain no neck back pelvis hips arms spine pain from the fall this morning. Patient has history of chronic atrial fibrillation. She is on baby aspirin only. Patient seen here 3 days ago and placed on antibiotics for UTI. Patient states and bike has made her nauseous. Unable to eat or drink. She feels dehydrated. Heart rate noted. I did review chart from 3 days ago. Patient arrived here in atrial fibrillation and received Cardizem IV which improved significantly her AFib with RVR. Denies any cough cold congestion. No fever or chills. Patient was sent home on Macrobid. Culture sensitivity has returned. E coli positive. No resistance on provided s ensitivity. Patient denies any chest pain or palpitations or dyspnea After history and exam CBC CMP troponin magnesium procalcitonin lactic acid EKG x-ray right knee Cardizem normal saline MDM CC: Weakness nausea Complicating co-morbidities: Recent UTI/chronic atrial fibrillation Data collected from: Patient Medical records reviewed: July 31, 2022 ER visit here as well as culture and s ensitivity of the urine Differential considered: Includes but not limited to sepsis UTI knee cont usion/fracture, chronic AFib Exam documented above, pertinent findings include: Tachycardia with irregularly irregular rhythm and rate, nontender right knee Lab Test results independently reviewed as above. Pertinent findings: WBC 7.4 hemoglobin 12.7 hematocrit 36.6 sodium 131 potassium 3.4 bicarb 25 BUN 13 creatinine 0.63 GFR greater than 60 lactic acid 1.5 troponin less than 0.012 procalcitonin 0.09 Independently reviewed EKG as above atrial fibrillation with RVR rate 134 Imaging studies independently reviewed: Right knee x-ray no acute process Consultations: 10:[address] Gomes, hospitalist, at this time he does not feel patient needs admission. Recommends trying different antibiotic and nausea medication. 1:30 p.[address].. Spoke with cardiology Dr Linn, patient can discontinue metoprolol. Patient can start Cardizem CD 180 mg daily. 3:[address] Gomes again, he will admit patient Treatments: Cardizem/normal saline, metoprolol Re-evaluations: 10:30 a.m. a.m.. Patient feeling much better. Heart rate improved significantly with Cardizem. Normal saline as well. Reviewed results with patient. Agrees for trying Reglan and different antibiotic. She states Macrobid made her hallucinate. 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 She was taken Zofran, given by family. 3:00 p.m.. Patient is still in AFib RVR rate 140. Despite giving metoprolol IV Cardizem bolus oral Cardizem. Now will require Cardizem drip. Discussion: Appropriate for admission. Patient will require IV Cardizem drip. Patient weakness may be due to the AFib, and not all due to UTI. Diagnosis: Acute UTI/intractable nausea, atrial fibrillation Critical Care Time Critical Care Time Attestation: Critical Care Time 35 minutes: Patient requiring Cardizem drip and ICU admit Critical care time is separate from other billable procedures. This critical care time includes consultation with family and other consulting doctors, review of records, and interpretation of data from labs, EKGs, imaging, etc. Discharge Plan Departure Patient Disposition: Admitted as Observation Clinical Impression: Acute UTI, Atrial fibrillation Admit Date/Time: 08/03/22 15:25 Admit Provider: Marv Gomes
[2022-08-03] MEDS: SODIUM CHLORIDE 0.9% 1,000 ML 1000 ML IV (08:56)
[2022-08-03 08:57] LABS: Basophils Absolute Auto 0 /uL (0-100); Basophils Percent Auto 0.5 % (0-2); Eosinophils Absolute Auto 0 /uL (0-450); Hematocrit 36.6 % (36-46); Hemoglobin 12.7 g/dL (12.0-16.0); Lymphocytes Absolute Auto 300 /uL (1100-4500); Lymphocytes Percent Auto 4.2 % (25-40); Mean Corpuscular HGB Conc 34.7 % (30-36); Mean Corpuscular Hemoglobin 28.7 PG (26-34); Mean Corpuscular Volume 82.7 fL (80-100); Monocytes Absolute Auto 700 /uL (0-900); Monocytes Percent Auto 9.7 % (3-14); Neutrophils Absolute Auto 6300 /uL (1500-7000); Neutrophils Percent Auto 85.6 % (50-75); Platelet Count 137 X10^3/uL (150-400); Red Blood Cell Count 4.43 X10^6/uL (4.0-5.2); White Blood Cell Count 7.4 X10^3/uL (4.5-11.0)
[2022-08-03] MEDS: dilTIAZem 5 MG/ML SDV 10 MG IV (08:57)
[2022-08-03 08:59] LABS: Add Manual Diff / Slide Review SLIDE REVIEW
[2022-08-03 09:11] LABS: Lactate (Lactic Acid) 1.5 mmol/L (0.7-2.1)
[2022-08-03 09:13] LABS: Alanine Aminotransferase 25 IU/L (<35); Albumin 3.5 g/dL (3.5-5.0); Alkaline Phosphatase 102 U/L (38-126); Aspartate Aminotransferase 33 IU/L (14-36); BUN Creatinine Ratio 20.6 (6-22); Bilirubin Total 1.5 mg/dL (0.2-1.3); Blood Urea Nitrogen 13 mg/dL (7-17); Calcium 8.4 mg/dL (8.4-10.2); Carbon Dioxide 25 mmol/L (22-32); Chloride 97 mmol/L (98-107); Creatine Kinase 47 U/L (30-135); Estimated Glomerular Filt Rate > 60 mL/min (>60); Globulin 3.4 g/dL (1.7-4.1); Glucose 124 mg/dL (80-110); HEMOLYSIS < 15 (0-50); Lipase 75 U/L (23-300); Magnesium 1.9 mg/dL (1.6-2.3); Potassium 3.4 mmol/L (3.4-5.1); Sodium 131 mmol/L (137-145); Total Protein 6.9 g/dL (6.3-8.2)
[2022-08-03 09:14] LABS: INR 1.3 (0.9-1.3); Prothrombin Time 14.5 SECONDS (10.1-12.7)
[2022-08-03 09:17] LABS: PTT Partial Thromboplastin Tim 25 SECONDS (26-36)
[2022-08-03 09:18] LABS: Anisocytosis 2+
[2022-08-03 09:23] LABS: Troponin I < 0.012 ng/mL (0.01-0.034)
[2022-08-03 09:29] LABS: Procalcitonin 0.09 ng/mL (<0.5)
[2022-08-03 09:48] LABS: COVID19 -Nasal RAPID Negative (Negative)
[2022-08-03] MEDS: METOPROLOL ER 25 MG TABLET PO (10:13)
[2022-08-03] MEDS: TRIMETH/SULFA 160/800 (DS) TABLET 1 TAB PO (11:34)
[2022-08-03] MEDS: METOCLOPRAMIDE HCL 5 MG TABLET 10 MG PO (11:34)
--- NOTE | 2022-08-03 11:46 | PC.NURSE ---
MANAGER INSTALLATION Note - Patient's baseline is walking with a walker for assistance. Patient stated that she was too weak to walk to the restroom. Brought in a commode and a hospital-owned walker to the room. Patient was able to go sit up on the edge of the bed without any help from myself, as well as stand on her own. Patient only used the walker to turn from the bed to the commode.
[2022-08-03 13:06] LABS: Appearance Urine UA SL CLOUDY; Bilirubin Urine UA 2+ (NEGATIVE); Color Urine UA ORANGE; Glucose Urine UA TRACE g/dL (Negative); Ketones Urine UA 1+ (NEGATIVE); Leukocyte Esterase Urine UA TRACE (NEGATIVE); Nitrite Urine UA POSITIVE (Negative); Occult Blood Urine UA 1+ (Negative); Protein Urine UA 2+ (Negative); Specific Gravity Urine UA 1.025 (1.000-1.035); Urobilinogen Urine UA >=8.0 E.U./dL (0.2)
[2022-08-03 13:13] LABS: pH Urine UA 6.5 (4.5-8.0)
[2022-08-03] MEDS: dilTIAZem CD 180 MG CAP PO (13:21)
[2022-08-03 13:46] LABS: Ictotest Urine Negative (Negative); RBC Urine 0-1/HPF (0-5/HPF)
[2022-08-03 13:47] LABS: Bacteria Urine Moderate (10-30); Culture Indicated Urine Specimen Cultured; Granular Casts Urine 1-5/LPF; Hyaline Casts Urine 1-5/LPF; Mucus Urine 1+ (Negative); Squamous Epithelial Cell Urine 5-10 /HPF (0-5/HPF); WBC Urine 10-30/HPF (0-5/HPF)
[2022-08-03] MEDS: DILTIAZEM 125 MG/125 ML PIGGYBACK IV (15:17)
--- NOTE | 2022-08-03 15:52 | PM.HP.1 ---
History of Present Illness History of Present Illness Date Patient Seen: 08/03/22 Time Patient Seen: 18:00 Chief complaint: gen weakness/ GLF Narrative: Maddi Baumann is a 76yo F with PMH of A-fib not on anticoag due to GI bleed, HTN, HLD, hypothyroidism, TIA, GERD, and obesity who presents with fall at home and found to be in A-fib RVR. Patient was seen in our ED a few days ago and found to have a UTI so discharged on po bactrim. She then developed nausea from the medication which didn't allow her to take her home metoprolol or any other meds. She then had a fall at home while stooping down to feed her dog. She represented to the ED with ongoing nausea and found to be tachy to 150's. Xrays of right knee were normal. Cardiology called by ED who recommended a dilt drip and stopping her home metoprolol. She is currently on the drip at 10 mcg/min. She is feeling much better in terms of her nausea and has eaten a meal which was her first food in a few days. She endorses some SOB and ongoing weakness. Denies CP, abd pain, dysuria, or diarrhea. [facility] Medical History Anxiety Depression Easy bruisability GERD (gastroesophageal reflux disease) HLD (hyperlipidemia) HTN (hypertension) Hypothyroidism Seasonal allergies TIA (transient ischemic attack) (02/2020) Wrist fracture (01/2019) Surgical History History of bladder surgery (2003) History of hip surgery (04/2020) Hx of bilateral cataract extraction Hx of cholecystectomy (12/2019) Social History household members: family Smoking Status: Former smoker alcohol intake: former Meds Home Medications and Allergies Home Medications Medication Instructions Recorded Confirmed Type amlodipine 5 mg tablet 5 mg PO DAILY 08/17/21 08/03/22 History aspirin 81 mg tablet,delayed 81 mg PO DAILY 08/17/21 08/03/22 History release atorvastatin 40 mg tablet 40 mg PO DAILY 08/17/21 08/03/22 History cetirizine 10 mg tablet (Zyrtec) 10 mg PO DAILY PRN Seasonal 08/17/21 08/03/22 History allergies escitalopram oxalate 20 mg tablet 20 mg PO DAILY 08/17/21 08/03/22 History levothyroxine 150 mcg tablet 150 mcg PO SEEINSTR 08/17/21 08/03/22 History (Synthroid) metoprolol succinate 50 mg 25 mg PO BID 08/17/21 08/03/22 History tablet,extended release 24 hr omeprazole 20 mg capsule,delayed 40 mg PO QAM 08/17/21 08/03/22 History release sumatriptan succinate 100 mg tablet 100 mg PO DAILY PRN Headaches 08/17/21 08/03/22 History acetaminophen 500 mg capsule 500 mg PO Q4H PRN fever or pain 08/20/21 08/03/22 Rx #90 caps ibuprofen 400 mg tablet 400 mg PO Q6HR PRN 08/20/21 08/03/22 Rx Pain/inflammation #90 tabs nitrofurantoin 100 mg PO Q12H 7 days #14 caps 07/31/22 08/03/22 Rx monohydrate/macrocrystals 100 mg capsule (Macrobid) Allergies Allergy/AdvReac Type Severity Reaction Status Date / Time ceftriaxone AdvReac Vomiting Verified 08/03/22 08:28 bactrim Allergy Intermediate Nausea Uncoded 08/03/22 19:41 Review of Systems Review of Systems Narrative: All other systems reviewed with the patient and are negative unless otherwise stated. Exam Vital Signs (past 8 hours): - 08/03/22 08:22 08/03/22 08:57 08/03/22 08:22 Temperature 98.4 F Pulse Rate 154 H 156 H 136 H Respiratory Rate 20 18 Blood Pressure 153/98 H 150/100 H Pulse Oximetry 96 95 Oxygen Delivery Method Room Air 08/03/22 08:30 08/03/22 08:30 08/03/22 09:00 Temperature Pulse Rate 142 H Respiratory Rate 32 H Blood Pressure 150/100 H 129/80 Pulse Oximetry 95 Oxygen Delivery Method 08/03/22 09:00 08/03/22 10:13 08/03/22 09:30 Temperature Pulse Rate 104 H 113 H 106 H Respiratory Rate 29 H 30 H Blood Pressure 138/84 Pulse Oximetry 94 96 Oxygen Delivery Method Room Air 08/03/22 10:00 08/03/22 10:13 08/03/22 10:13 Temperature Pulse Rate 107 H 114 H Respiratory Rate 29 H 30 H Blood Pressure 138/84 Pulse Oximetry 96 94 Oxygen Delivery Method 08/03/22 11:35 08/03/22 10:30 08/03/22 10:30 Temperature Pulse Rate 118 H 110 H Respiratory Rate Blood Pressure 150/86 H 147/88 H Pulse Oximetry 96 Oxygen Delivery Method 08/03/22 11:00 08/03/22 11:00 08/03/22 11:35 Temperature Pulse Rate 118 H 150 H Respiratory Rate 14 Blood Pressure 150/86 H Pulse Oximetry 96 Oxygen Delivery Method 08/03/22 11:36 08/03/22 11:36 08/03/22 12:00 Temperature Pulse Rate 154 H Respiratory Rate Blood Pressure 160/97 H 163/79 H Pulse Oximetry 90 L Oxygen Delivery Method 08/03/22 12:00 08/03/22 12:30 08/03/22 12:30 Temperature Pulse Rate 130 H 129 H Respiratory Rate 27 H Blood Pressure 139/96 H Pulse Oximetry 94 Oxygen Delivery Method Room Air 08/03/22 13:00 08/03/22 13:30 08/03/22 14:00 Temperature Pulse Rate 136 H 147 H 131 H Respiratory Rate 29 H 20 Blood Pressure Pulse Oximetry 97 Oxygen Delivery Method Room Air 08/03/22 14:30 08/03/22 14:46 08/03/22 14:46 Temperature Pulse Rate 125 H 135 H Respiratory Rate 20 20 Blood Pressure 136/90 136/90 Pulse Oximetry 95 Oxygen Delivery Method 08/03/22 15:00 08/03/22 15:00 08/03/22 15:30 Temperature Pulse Rate 140 H Respiratory Rate Blood Pressure 137/75 117/83 Pulse Oximetry 96 Oxygen Delivery Method 08/03/22 15:30 Temperature Pulse Rate 124 H Respiratory Rate 28 H Blood Pressure Pulse Oximetry 93 Oxygen Delivery Method Oxygen Delivery Method Room Air Narrative Exam Narrative: GEN: no acute distress HEENT: moist mucous membranes, PERRL NECK: trachea midline, no JVD CV: Tachycardic, irregularly irregular, no murmurs PULM: Mild bibasilar rales ABD: soft, nontender, nondistended, no organomegaly EXT: warm and well perfused with no edema NEURO: awake, alert, oriented, no focal deficits Objective Labs 08/03/22 08:44 08/03/22 08:44 Labs: Laboratory Results - last 24 hr 08/03/22 08/03/22 08/03/22 08:44 08:44 08:44 WBC 7.4 RBC 4.43 Hgb 12.7 Hct 36.6 MCV 82.7 MCH 28.7 MCHC 34.7 RDW 26.0 H Plt Count 137 L Neut % (Auto) 85.6 H Lymph % (Auto) 4.2 L [place] % (Auto) 9.7 Eos % (Auto) 0.0 L Baso % (Auto) 0.5 Neut # (Auto) 6300 Lymph # (Auto) 300 L [place] # (Auto) 700 Eos # (Auto) 0 Baso # (Auto) 0 RBC Morphology See below Anisocytosis 2+ H PT 14.5 H INR 1.3 APTT 25 L Sodium 131 L Potassium 3.4 Chloride 97 L Carbon Dioxide 25 BUN 13 Creatinine 0.63 Estimated GFR > 60 BUN/Creatinine Ratio 20.6 Glucose 124 H Lactate Calcium 8.4 Magnesium 1.9 Total Bilirubin 1.5 H AST 33 ALT 25 Alkaline Phosphatase 102 Total Creatine Kinase 47 CK-MB (CK-2) TNP CK-MB (CK-2) Rel Index TNP Troponin I < 0.012 Total Protein 6.9 Albumin 3.5 Globulin 3.4 Albumin/Globulin Ratio 1.0 Lipase 75 Procalcitonin Urine Color Urine Appearance Urine pH Ur Specific [place] Urine Protein Urine Glucose (UA) Urine Ketones Urine Occult Blood Urine Nitrate Urine Bilirubin Ur Bilirubin Confirm Urine Urobilinogen Ur Leukocyte Esterase Urine RBC Urine WBC Ur Squamous Epith Cells Urine Bacteria Hyaline Casts Granular Casts Urine Mucus Ur Culture Indicated? SARS-CoV-2 (PCR) 08/03/22 08/03/22 08/03/22 08:44 08:44 09:08 WBC RBC Hgb Hct MCV MCH MCHC RDW Plt Count Neut % (Auto) Lymph % (Auto) [place] % (Auto) Eos % (Auto) Baso % (Auto) Neut # (Auto) Lymph # (Auto) [place] # (Auto) Eos # (Auto) Baso # (Auto) RBC Morphology Anisocytosis PT INR APTT Sodium Potassium Chloride Carbon Dioxide BUN Creatinine Estimated GFR BUN/Creatinine Ratio Glucose Lactate 1.5 Calcium Magnesium Total Bilirubin AST ALT Alkaline Phosphatase Total Creatine Kinase CK-MB (CK-2) CK-MB (CK-2) Rel Index Troponin I Total Protein Albumin Globulin Albumin/Globulin Ratio Lipase Procalcitonin 0.09 Urine Color Urine Appearance Urine pH Ur Specific [place] Urine Protein Urine Glucose (UA) Urine Ketones Urine Occult Blood Urine Nitrate Urine Bilirubin Ur Bilirubin Confirm Urine Urobilinogen Ur Leukocyte Esterase Urine RBC Urine WBC Ur Squamous Epith Cells Urine Bacteria Hyaline Casts Granular Casts Urine Mucus Ur Culture Indicated? SARS-CoV-2 (PCR) Negative 08/03/22 12:47 WBC RBC Hgb Hct MCV MCH MCHC RDW Plt Count Neut % (Auto) Lymph % (Auto) [place] % (Auto) Eos % (Auto) Baso % (Auto) Neut # (Auto) Lymph # (Auto) [place] # (Auto) Eos # (Auto) Baso # (Auto) RBC Morphology Anisocytosis PT INR APTT Sodium Potassium Chloride Carbon Dioxide BUN Creatinine Estimated GFR BUN/Creatinine Ratio Glucose Lactate Calcium Magnesium Total Bilirubin AST ALT Alkaline Phosphatase Total Creatine Kinase CK-MB (CK-2) CK-MB (CK-2) Rel Index Troponin I Total Protein Albumin Globulin Albumin/Globulin Ratio Lipase Procalcitonin Urine Color [place] Urine Appearance Sl cloudy Urine pH 6.5 Ur Specific [place] 1.025 Urine Protein 2+ H Urine Glucose (UA) Trace H Urine Ketones 1+ H Urine Occult Blood 1+ H Urine Nitrate Positive H Urine Bilirubin 2+ H Ur Bilirubin Confirm Negative Urine Urobilinogen >=8.0 Ur Leukocyte Esterase Trace H Urine RBC 0-1/hpf Urine WBC 10-30/hpf H Ur Squamous Epith Cells 5-10 /hpf H Urine Bacteria Moderate (10-30) H Hyaline Casts 1-5/lpf Granular Casts 1-5/lpf Urine Mucus 1+ H Ur Culture Indicated? Specimen cultured SARS-CoV-2 (PCR) Assessment & Plan Assessment & Plan narrative: # atrial fibrillation with RVR -patient unable to take her home metoprolol due to nausea from bactrim, HR 150's in ED -continue dilt drip, currently at 10 mcg/min -wean drip as able and will transition to po dilt, hold home metoprolol -had echo 2 months ago at [facility] so will not repeat -check TSH -patient only on aspirin due to history of GIB with eliquis, continue aspirin daily # UTI -continue levaquin x3 days due to rocephin allergy -urine culture with pansensitive E. coli # SOB and weakness -not hypoxic, on room air -obtain CXR -PT/OT evals # HTN -continue home amlodipine # HLD -continue home lipitor # hypothyroidism -continue home synthroid -check TSH # GERD -continue home PPI # insomnia and depression -hold home trazodone and lexapro due to QT prolongation with levaquin Code status is full code. COVID negative. DVT prophylaxis with Lovenox. Proxy is daughter Meenu. I have reviewed home meds and used all available resources to reconcile the home meds. I spent a total of 35 minutes of critical care time on this patient's care today; this time is exclusive of procedural time. This patient will be admitted as ICU and will require greater than 2 midnights of hospital time to treat AFib with RVR.
[2022-08-03] MEDS: SODIUM CHLORIDE 0.9% 1,000 ML 100 ML IV (15:58)
--- NOTE | 2022-08-03 16:35 | PC.NURSE ---
DANA Cadet will place another Iv for patient. pt is a very difficult IV start.
[2022-08-03] MEDS: levoFLOXacin 750 MG/150 ML PIGGYBACK 100 MG IV (16:37)
[2022-08-03 17:23] LABS: TSH w/ Reflex to FT4 8.11 uIU/mL (0.47-4.68)
[2022-08-03 17:55] LABS: Free T4, Direct Thyroxine 0.83 ng/dL (0.78-2.19)
[2022-08-03 18:10] LABS: MRSA (Nasal) PCR Not Detected (Not Detect)
[2022-08-03] MEDS: POTASSIUM CHLORIDE 20 MEQ TAB 40 MEQ PO (18:26)
[2022-08-03] MEDS: FUROSEMIDE 40 MG/4 ML VIAL 20 MG IV (18:27)
--- NOTE | 2022-08-03 19:45 | DI.RAD.S_ITS ---
PROCEDURE: XR CHEST 1V INDICATIONS: SOB TECHNIQUE: One view of the chest was acquired. COMPARISON: [facility], CR, XR CHEST 1V, 07/31/2022, 8:37. FINDINGS: Surgical changes and devices: None. Lungs and pleura: There is a small left pleural effusion. Confluent left retrocardiac opacities are demonstrated likely representing consolidation, versus atelectasis. Mediastinum: Mediastinal contours appear unchanged. There is a large hiatal hernia again noted. Heart size is normal. Bones and chest wall: No suspicious bony lesions. Overlying soft tissues appear unremarkable. IMPRESSION: 1. Small left pleural effusion with left basilar consolidation or atelectasis. Dictated by: Massimo Fulton M.D. on 08/03/2022 at 20:06 Approved by: Massimo Fulton M.D. on 08/03/2022 at 20:08
[2022-08-03] MEDS: ATORVASTATIN 20 MG TABLET 40 MG PO (20:13)
[2022-08-03] MEDS: SENNOSIDES 8.6 MG TABLET PO (20:13)
[2022-08-04] VITALS (31 sets, daily range): BP systolic 111–158; BP diastolic 60–91; PULSE 100–154; RESP 18–40; TEMP 36.2–36.8; O2SAT 90–97
[2022-08-04] MEDS: DILTIAZEM 125 MG/125 ML PIGGYBACK 15 MG IV (01:17)
[2022-08-04] MEDS: MELATONIN 3 MG TABLET 6 MG PO (02:16)
[2022-08-04] MEDS: ACETAMINOPHEN 325 MG TABLET 650 MG PO (02:16)
[2022-08-04 04:52] LABS: Add Manual Diff / Slide Review NO; BUN Creatinine Ratio 19.3 (6-22); Basophils Absolute Auto 0 /uL (0-100); Basophils Percent Auto 0.3 % (0-2); Blood Urea Nitrogen 11 mg/dL (7-17); Carbon Dioxide 25 mmol/L (22-32); Chloride 97 mmol/L (98-107); Eosinophils Absolute Auto 0 /uL (0-450); Eosinophils Percent Auto 0.1 % (2-4); Estimated Glomerular Filt Rate > 60 mL/min (>60); Glucose 136 mg/dL (80-110); HEMOLYSIS < 15 (0-50); Hematocrit 34.3 % (36-46); Hemoglobin 11.7 g/dL (12.0-16.0); Lymphocytes Absolute Auto 500 /uL (1100-4500); Lymphocytes Percent Auto 8.7 % (25-40); Mean Corpuscular HGB Conc 34.2 % (30-36); Mean Corpuscular Hemoglobin 28.2 PG (26-34); Mean Corpuscular Volume 82.4 fL (80-100); Monocytes Absolute Auto 800 /uL (0-900); Neutrophils Absolute Auto 4900 /uL (1500-7000); Neutrophils Percent Auto 77.9 % (50-75); Platelet Count 130 X10^3/uL (150-400); Potassium 3.3 mmol/L (3.4-5.1); Red Blood Cell Count 4.16 X10^6/uL (4.0-5.2); Sodium 131 mmol/L (137-145); White Blood Cell Count 6.2 X10^3/uL (4.5-11.0)
[2022-08-04] MEDS: LEVOTHYROXINE 75 MCG TABLET 150 MCG PO (05:32)
[2022-08-04] MEDS: PANTOPRAZOLE DR 40 MG TABLET PO (05:32)
[2022-08-04 06:50] LABS: Anisocytosis 2+
[2022-08-04 06:51] LABS: Poikilocytosis 2+; Tear Drop Cells 1+
[2022-08-04 06:52] LABS: Schistocytes 1+
--- NOTE | 2022-08-04 07:39 | PM.PN.1 ---
Subjective Subjective Interval history: Patient still tachy into 130-150's with max dilt. Changed to IV amio. Patient otherwise feels well. Exam Vital Signs (past 8 hours): - 08/04/22 00:00 08/04/22 00:00 08/04/22 00:06 Temperature Pulse Rate 100 H Respiratory Rate 24 Blood Pressure 158/80 H 140/77 Pulse Oximetry 93 08/04/22 00:06 08/04/22 01:00 08/04/22 01:00 Temperature Pulse Rate 101 H 108 H Respiratory Rate 25 H 23 Blood Pressure 140/91 H Pulse Oximetry 95 93 08/04/22 02:00 08/04/22 02:13 08/04/22 02:13 Temperature Pulse Rate 136 H 121 H Respiratory Rate 38 H 28 H Blood Pressure 124/60 Pulse Oximetry 94 94 08/04/22 03:00 08/04/22 03:00 08/04/22 04:00 Temperature Pulse Rate 124 H Respiratory Rate 22 Blood Pressure 119/60 117/69 Pulse Oximetry 90 L 08/04/22 04:00 08/04/22 05:00 08/04/22 05:00 Temperature 97.5 F L Pulse Rate 121 H 117 H Respiratory Rate 18 23 Blood Pressure 115/75 Pulse Oximetry 95 97 08/04/22 06:00 08/04/22 06:00 08/04/22 07:00 Temperature Pulse Rate 123 H Respiratory Rate 18 Blood Pressure 129/75 130/86 Pulse Oximetry 97 08/04/22 07:00 Temperature Pulse Rate 154 H Respiratory Rate 34 H Blood Pressure Pulse Oximetry 95 Oxygen Delivery Method Room Air Narrative Exam Narrative: GEN: no acute distress HEENT: moist mucous membranes, PERRL NECK: trachea midline, no JVD CV: tachycardic, irregularly irregular, no murmurs PULM: Mild bibasilar rales ABD: soft, nontender, nondistended, no organomegaly EXT: warm and well perfused with no edema NEURO: awake, alert, oriented, no focal deficits Objective Labs 08/04/22 04:33 08/04/22 04:33 Labs: Laboratory Results - last 24 hr 08/03/22 08/03/22 08/03/22 08:44 08:44 08:44 WBC 7.4 RBC 4.43 Hgb 12.7 Hct 36.6 MCV 82.7 MCH 28.7 MCHC 34.7 RDW 26.0 H Plt Count 137 L Neut % (Auto) 85.6 H Lymph % (Auto) 4.2 L [place] % (Auto) 9.7 Eos % (Auto) 0.0 L Baso % (Auto) 0.5 Neut # (Auto) 6300 Lymph # (Auto) 300 L [place] # (Auto) 700 Eos # (Auto) 0 Baso # (Auto) 0 RBC Morphology See below Poikilocytosis Anisocytosis 2+ H Tear Drop Cells Schistocytes PT 14.5 H INR 1.3 APTT 25 L Sodium 131 L Potassium 3.4 Chloride 97 L Carbon Dioxide 25 BUN 13 Creatinine 0.63 Estimated GFR > 60 BUN/Creatinine Ratio 20.6 Glucose 124 H Lactate Calcium 8.4 Magnesium 1.9 Total Bilirubin 1.5 H AST 33 ALT 25 Alkaline Phosphatase 102 Total Creatine Kinase 47 CK-MB (CK-2) TNP CK-MB (CK-2) Rel Index TNP Troponin I < 0.012 Total Protein 6.9 Albumin 3.5 Globulin 3.4 Albumin/Globulin Ratio 1.0 Lipase 75 Procalcitonin TSH Free T4 Urine Color Urine Appearance Urine pH Ur Specific [place] Urine Protein Urine Glucose (UA) Urine Ketones Urine Occult Blood Urine Nitrate Urine Bilirubin Ur Bilirubin Confirm Urine Urobilinogen Ur Leukocyte Esterase Urine RBC Urine WBC Ur Squamous Epith Cells Urine Bacteria Hyaline Casts Granular Casts Urine Mucus Ur Culture Indicated? Nasal Screen MRSA (PCR) SARS-CoV-2 (PCR) 08/03/22 08/03/22 08/03/22 08:44 08:44 08:44 WBC RBC Hgb Hct MCV MCH MCHC RDW Plt Count Neut % (Auto) Lymph % (Auto) [place] % (Auto) Eos % (Auto) Baso % (Auto) Neut # (Auto) Lymph # (Auto) [place] # (Auto) Eos # (Auto) Baso # (Auto) RBC Morphology Poikilocytosis Anisocytosis Tear Drop Cells Schistocytes PT INR APTT Sodium Potassium Chloride Carbon Dioxide BUN Creatinine Estimated GFR BUN/Creatinine Ratio Glucose Lactate 1.5 Calcium Magnesium Total Bilirubin AST ALT Alkaline Phosphatase Total Creatine Kinase CK-MB (CK-2) CK-MB (CK-2) Rel Index Troponin I Total Protein Albumin Globulin Albumin/Globulin Ratio Lipase Procalcitonin 0.09 TSH 8.11 H Free T4 0.83 Urine Color Urine Appearance Urine pH Ur Specific [place] Urine Protein Urine Glucose (UA) Urine Ketones Urine Occult Blood Urine Nitrate Urine Bilirubin Ur Bilirubin Confirm Urine Urobilinogen Ur Leukocyte Esterase Urine RBC Urine WBC Ur Squamous Epith Cells Urine Bacteria Hyaline Casts Granular Casts Urine Mucus Ur Culture Indicated? Nasal Screen MRSA (PCR) SARS-CoV-2 (PCR) 08/03/22 08/03/22 08/03/22 09:08 12:47 16:45 WBC RBC Hgb Hct MCV MCH MCHC RDW Plt Count Neut % (Auto) Lymph % (Auto) [place] % (Auto) Eos % (Auto) Baso % (Auto) Neut # (Auto) Lymph # (Auto) [place] # (Auto) Eos # (Auto) Baso # (Auto) RBC Morphology Poikilocytosis Anisocytosis Tear Drop Cells Schistocytes PT INR APTT Sodium Potassium Chloride Carbon Dioxide BUN Creatinine Estimated GFR BUN/Creatinine Ratio Glucose Lactate Calcium Magnesium Total Bilirubin AST ALT Alkaline Phosphatase Total Creatine Kinase CK-MB (CK-2) CK-MB (CK-2) Rel Index Troponin I Total Protein Albumin Globulin Albumin/Globulin Ratio Lipase Procalcitonin TSH Free T4 Urine Color [place] Urine Appearance Sl cloudy Urine pH 6.5 Ur Specific [place] 1.025 Urine Protein 2+ H Urine Glucose (UA) Trace H Urine Ketones 1+ H Urine Occult Blood 1+ H Urine Nitrate Positive H Urine Bilirubin 2+ H Ur Bilirubin Confirm Negative Urine Urobilinogen >=8.0 Ur Leukocyte Esterase Trace H Urine RBC 0-1/hpf Urine WBC 10-30/hpf H Ur Squamous Epith Cells 5-10 /hpf H Urine Bacteria Moderate (10-30) H Hyaline Casts 1-5/lpf Granular Casts 1-5/lpf Urine Mucus 1+ H Ur Culture Indicated? Specimen cultured Nasal Screen MRSA (PCR) Not detected SARS-CoV-2 (PCR) Negative 08/04/22 08/04/22 04:33 04:33 WBC 6.2 RBC 4.16 Hgb 11.7 L Hct 34.3 L MCV 82.4 MCH 28.2 MCHC 34.2 RDW 26.0 H Plt Count 130 L Neut % (Auto) 77.9 H Lymph % (Auto) 8.7 L [place] % (Auto) 13.0 Eos % (Auto) 0.1 L Baso % (Auto) 0.3 Neut # (Auto) 4900 Lymph # (Auto) 500 L [place] # (Auto) 800 Eos # (Auto) 0 Baso # (Auto) 0 RBC Morphology See below Poikilocytosis 2+ H Anisocytosis 2+ H Tear Drop Cells 1+ H Schistocytes 1+ H PT INR APTT Sodium 131 L Potassium 3.3 L Chloride 97 L Carbon Dioxide 25 BUN 11 Creatinine 0.57 Estimated GFR > 60 BUN/Creatinine Ratio 19.3 Glucose 136 H Lactate Calcium 8.0 L Magnesium Total Bilirubin AST ALT Alkaline Phosphatase Total Creatine Kinase CK-MB (CK-2) CK-MB (CK-2) Rel Index Troponin I Total Protein Albumin Globulin Albumin/Globulin Ratio Lipase Procalcitonin TSH Free T4 Urine Color Urine Appearance Urine pH Ur Specific [place] Urine Protein Urine Glucose (UA) Urine Ketones Urine Occult Blood Urine Nitrate Urine Bilirubin Ur Bilirubin Confirm Urine Urobilinogen Ur Leukocyte Esterase Urine RBC Urine WBC Ur Squamous Epith Cells Urine Bacteria Hyaline Casts Granular Casts Urine Mucus Ur Culture Indicated? Nasal Screen MRSA (PCR) SARS-CoV-2 (PCR) [facility] Medical History Anxiety Depression Easy bruisability GERD (gastroesophageal reflux disease) HLD (hyperlipidemia) HTN (hypertension) Hypothyroidism Seasonal allergies TIA (transient ischemic attack) (02/2020) Wrist fracture (01/2019) Surgical History History of bladder surgery (2003) History of hip surgery (04/2020) Hx of bilateral cataract extraction Hx of cholecystectomy (12/2019) Social History household members: family Smoking Status: Former smoker alcohol intake: former Assessment & Plan Assessment & Plan narrative: # atrial fibrillation with RVR -patient unable to take her home metoprolol due to nausea from bactrim, HR 150's in ED -maxed out dilt drip without improvement in HR -switch to IV amio with loading dose -continue home metoprolol -had echo on 05/27/22 at [facility] which showed EF 55-60%, severely dilated LA, RA mod dilated and no focal WMA's -TSH mildly elevated at 8.11 -patient only on aspirin due to history of GIB with eliquis, continue aspirin daily -if IV amio fails will need transfer for DINAH cardioversion # uncomplicated UTI -continue rocephin x3 days -urine culture with pansensitive E. coli # SOB and weakness -not hypoxic, on room air -CXR with small left pleural effusion -start lasix 20mg IV daily -PT/OT evals # HTN -continue home amlodipine # HLD -continue home lipitor # hypothyroidism -continue home synthroid -check TSH # GERD -continue home PPI # insomnia and depression -hold home trazodone and lexapro due to QT prolongation with levaquin Code status is full code. COVID negative. DVT prophylaxis with Lovenox. Proxy is daughter Meenu. I spent a total of 35 minutes of critical care time on this patient's care today; this time is exclusive of procedural time. Dispo: Pending improvement in A-fib RVR. Quality VTE Deep Vein Thrombosis/Pulmonary Embolism Present on Admission: No
[2022-08-04] MEDS: AMIODARONE 150 MG/100 ML PIGGYBACK 600 MG IV (07:58)
[2022-08-04] MEDS: POTASSIUM CHLORIDE 20 MEQ TAB 40 MEQ PO ×2 (08:11→14:02)
[2022-08-04] MEDS: AMIODARONE 360 MG/200 ML PIGGYBACK 33.33 MG IV (08:23)
[2022-08-04] MEDS: cefTRIAXone 1,000 MG in SODIUM CHLORIDE 0.9% 100 ML 200 MG IV (08:54)
[2022-08-04] MEDS: ENOXAPARIN 40 MG/0.4 ML SYRINGE SUBCUT (08:57)
[2022-08-04] MEDS: ONDANSETRON 4 MG/2 ML INJ IV (08:57)
[2022-08-04] MEDS: AMLODIPINE 5 MG TABLET PO (08:58)
[2022-08-04] MEDS: ASPIRIN EC 81 MG TABLET PO (08:59)
[2022-08-04] MEDS: METOPROLOL ER 25 MG TABLET PO (09:00)
[2022-08-04] MEDS: SENNOSIDES 8.6 MG TABLET PO (09:01)
--- NOTE | 2022-08-04 09:25 | CM.DANOTE ---
DCP: Case received, EMR reviewed and met with patient. Introduced self and role. Was able to obtain information regarding patient's baseline activity status at home, as well as her current living situation. DCP assessment completed with information currently available. Patient is a 76 year old female who admitted yesterday afternoon to the care of the hospitalist team. PCP: [facility]. Payer: confirmed: Medicare/[employer]. Patient came to the hospital via ambulance secondary to having generalized weakness, complaints of right knee pain. Patient had bent over to feed her dog, lost her balance. She denied injures. She had been recently seen here about 3 days ago for UTI, and placed on medication. Patient then came to the hospital, and was diagnosed with atrial fibrillation, with RVR. She is now on a Cardiazem drip. Discussed patient during team rounds, and hospitalist indicated that she may need Amniodorone, is still having difficulty with rate control. There is a possibility that she could be transferred for cardioversion if meds can't control rate. Met with patient in her room. She is pleasant, alert and oriented, was sitting up in bed getting ready to have her breakfast. Confirmed that she resides in [place] with her daughter. At her baseline, she uses a cane, and drives. She does have P.T. orders, unsure if she will be able to work with them as of yet, due to cardiac issues. P: DCP to continue to follow. Plan could be home, if they are able to control her cardiac rate here, and should also be able to work with P.T. if she stables here. Cathryn Nguyen RN/Biological Photographer Discharge Planning/Care Management Advanced directive, confirm from FAMILY Start: 08/03/22 17:01 Freq: Q24H Status: Active Protocol: Document 08/03/22 17:01 CW (Rec: 08/03/22 17:05 CW [id number]) Advance Directive, confirm on record Time 17:05 Person contacted patient Copy received No CM Discharge Assessment Start: 08/04/22 09:23 Freq: Status: Active Protocol: Document 08/04/22 09:23 (Rec: 08/04/22 09:25 [id number]) Discharge Planning Assessment Assigned Sales Operations Associate Cathryn Nguyen RN/Biological Photographer Advance Directives? Yes Advance Directives on File No History Provided By Patient,Family Member,Medical Record Prior Living Arrangements House Household Members family Type of transporation used prior to Drives own vehicle admit Independent with ADL's Yes Is patient alert and oriented? Yes Caregiver for Another No DME Already Rented / Owned Cane Comment Will see how patient does with P.T. Barriers to Discharge No Discharge Plan Home Referrals Initiated Other Additional Comment Will see how she does with P.T . May benefit with home health as long as she is homebound Whiteboard Updated in Patient Room with Yes name and ext. # of Sales Operations Associate Review Status In Process Next Review Type Continued Stay Review
--- NOTE | 2022-08-04 10:26 | OT.IPNOTE ---
Pt having high HR, hold OT eval at this time.
[2022-08-04] MEDS: FUROSEMIDE 20 MG/2 ML VIAL IV (10:56)
--- NOTE | 2022-08-04 11:08 | PT-IP ANOTE ---
Per RN, patient's rate still not controlled, requested to hold until the afternoon.
--- NOTE | 2022-08-04 12:56 | PT-IP ANOTE ---
Patient's HR still elevated, not medically appropriate for PT. Will attempt tomorrow.
[2022-08-04] MEDS: AMIODARONE 360 MG/200 ML PIGGYBACK 16.7 MG IV (14:03)
[2022-08-04] MEDS: LORazepam 0.5 MG TABLET PO ×2 (15:43→22:17)
--- NOTE | 2022-08-04 16:15 | DI.ECHO.S_ITS ---
[facility]---------+ [facility] +---------+ : : [address] : : : : [id number] : : : : Phone: [phone]+ Echocardiogram Report + + :Name: LYNNE ARTHUR Study Date: 08/06/2022 Height: 68 in : :[facility] ReadingLocation: Weight: 224 lb: : Gender: Female BSA: 2.1 m2 : :: 1945 Age: 76 yrs : :Reason For Study: Afib : : Performed By: Mayela Harman : :Referring: MAIRA APODACA A : + + Interpretation Summary The left ventricle is normal in size and wall thickness. The ejection fraction is estimated to be 55-60%. This is unchanged compared to the previous study. Left ventricular wall motion is normal. Procedure: A two-dimensional transthoracic echocardiogram with color flow and Doppler was performed in limited views only to assess LVEF. The study quality was technically adequate. Comparison is made with the echocardiogram of 05/27/2022. The patient was in atrial fibrillation with controlled ventricular rate during the exam. Left Ventricle: The left ventricle is normal in size and wall thickness. The ejection fraction is estimated to be 55-60%. This is unchanged compared to the previous study. Left ventricular wall motion is normal. Pericardium/ Pleura There is no pericardial effusion. MMode/2D Measurements & Calculations LVIDd: 4.3 cm LVIDs: 2.9 cm FS: 33.9 % IVSd: 0.87 cm LVPWd: 1.0 cm LV macias. diameter/BSA (cm/m^2): 2.0 LV sys. diameter/BSA (cm/m^2): 1.3 Doppler Measurements & Calculations TR max katya: 197.3 cm/sec TR max P.6 mmHg Reading Physician:04:05 PM
[2022-08-04] MEDS: METOPROLOL IR 50 MG TABLET PO ×2 (17:32→23:56)
--- NOTE | 2022-08-04 19:17 | PC.NURSE ---
I agree with all assessments and documentation completed by student nurse Ria
[2022-08-04] MEDS: ATORVASTATIN 20 MG TABLET 40 MG PO (22:12)
[2022-08-05] VITALS (45 sets, daily range): BP systolic 114–170; BP diastolic 60–113; PULSE 72–130; RESP 13–33; TEMP 36.2–36.4; O2SAT 91–97
[2022-08-05] MEDS: AMIODARONE 360 MG/200 ML PIGGYBACK 16.7 MG IV (01:41)
[2022-08-05 05:34] LABS: Add Manual Diff / Slide Review NO; Basophils Absolute Auto 0 /uL (0-100); Basophils Percent Auto 0.5 % (0-2); Eosinophils Absolute Auto 100 /uL (0-450); Eosinophils Percent Auto 1.3 % (2-4); Hemoglobin 12.6 g/dL (12.0-16.0); Lymphocytes Absolute Auto 700 /uL (1100-4500); Lymphocytes Percent Auto 14.6 % (25-40); Mean Corpuscular HGB Conc 33.9 % (30-36); Mean Corpuscular Hemoglobin 28.3 PG (26-34); Mean Corpuscular Volume 83.3 fL (80-100); Monocytes Absolute Auto 500 /uL (0-900); Monocytes Percent Auto 10.3 % (3-14); Neutrophils Absolute Auto 3500 /uL (1500-7000); Neutrophils Percent Auto 73.3 % (50-75); Platelet Count 144 X10^3/uL (150-400); Red Blood Cell Count 4.44 X10^6/uL (4.0-5.2); Red Cell Distribution Width 25.8 % (11.6-14.8); White Blood Cell Count 4.7 X10^3/uL (4.5-11.0)
[2022-08-05 05:36] LABS: BUN Creatinine Ratio 22.8 (6-22); Blood Urea Nitrogen 13 mg/dL (7-17); Calcium 8.2 mg/dL (8.4-10.2); Carbon Dioxide 28 mmol/L (22-32); Chloride 97 mmol/L (98-107); Estimated Glomerular Filt Rate > 60 mL/min (>60); Glucose 125 mg/dL (80-110); HEMOLYSIS < 15 (0-50); Potassium 4.2 mmol/L (3.4-5.1); Sodium 132 mmol/L (137-145)
[2022-08-05] MEDS: PANTOPRAZOLE DR 40 MG TABLET PO (06:13)
[2022-08-05] MEDS: LEVOTHYROXINE 75 MCG TABLET 150 MCG PO (06:13)
[2022-08-05] MEDS: METOPROLOL IR 50 MG TABLET PO ×2 (06:35→13:00)
[2022-08-05 06:36] LABS: Anisocytosis 2+; Poikilocytosis 1+
[2022-08-05 07:43] LABS: INR 1.2 (0.9-1.3); Prothrombin Time 13.2 SECONDS (10.1-12.7)
[2022-08-05] MEDS: cefTRIAXone 1,000 MG in SODIUM CHLORIDE 0.9% 100 ML 200 MG IV (08:44)
[2022-08-05] MEDS: ASPIRIN EC 81 MG TABLET PO (08:44)
[2022-08-05] MEDS: FUROSEMIDE 20 MG/2 ML VIAL IV (08:45)
[2022-08-05] MEDS: AMLODIPINE 5 MG TABLET PO (08:45)
[2022-08-05] MEDS: ENOXAPARIN 40 MG/0.4 ML SYRINGE SUBCUT (08:45)
[2022-08-05] MEDS: DIGOXIN 500 MCG/2 ML AMPUL IV (12:22)
--- NOTE | 2022-08-05 15:25 | PT.IIE ---
Current Diagnoses Unspecified atrial fibrillation (08/03/22) Surgical History (Last Reviewed 07/31/22 @ 08:47 by Isadora Scott DO) History of bladder surgery (2003) History of hip surgery (04/2020) Hx of bilateral cataract extraction Hx of cholecystectomy (12/2019) Medical History (Last Reviewed 07/31/22 @ 08:47 by Isadora Scott DO) Anxiety Depression Easy bruisability GERD (gastroesophageal reflux disease) HLD (hyperlipidemia) HTN (hypertension) Hypothyroidism Seasonal allergies TIA (transient ischemic attack) (02/2020) Wrist fracture (01/2019) Physical Therapy Inpatient Evaluation/Re-Eval M1 PT/OT-IP Prior Functional Status Start: 08/05/22 16:11 Freq: NEEDED Status: Active Protocol: Document 08/05/22 15:25 AB (Rec: 08/05/22 16:25 AB [id number]) Medical Review Prior Functional Status Medical History Reviewed Yes Communication able to make needs known Mobility and Gait pt stated that she is modified independent with all mobilities and ambulation using a quad cane Social History Household Members family Living Arrangements House Number of Floors (Floors) One Floor Number of Stairs To Enter/Railing? 3 steps B rails to enter Home Environment High Toilet Home Equipment Front Wheel Walker,Quad Cane, Shower Seat with Backrest,Hand Held Shower,Grab Bars Near Toilet,Grab Bars In Shower Additional Social History Comment pt lives with daughter; pt works but stated that her brother can assist pt when she is not around M2 PT-IP Current Condition Start: 08/05/22 16:11 Freq: NEEDED Status: Active Protocol: Document 08/05/22 15:25 AB (Rec: 08/05/22 16:25 AB [email or web address]) Physical Therapy Current Condition Current Condition Evaluation Date 08/05/22 Treatment Diagnosis A-fib; UTI; difficulty in walking Onset Date 08/03/22 M3 PT-IP Subjective Start: 08/05/22 16:11 Freq: NEEDED Status: Active Protocol: Document 08/05/22 15:25 AB (Rec: 08/05/22 16:25 AB [email or web address]) Subjective Physical Therapy Visit Type Type Initial Evaluation Visit Start Time 15:25 Visit Stop Time 15:55 Total Visit Minutes 30 Notes Talked with nurse and stated that pt's HI has improved and currently in the 80s. talked with pt regarding PT and initially refusing and wants to talk to the nurse first. nurse talked to pt and pt agreed to do PT. Number of UNION REPRESENTATIVE Visits 0 Therapy Pain Assessment Pain Present Pain Present Denied Pain M4 PT-IP Mobility and Gait Start: 08/05/22 16:11 Freq: NEEDED Status: Active Protocol: Document 08/05/22 15:25 AB (Rec: 08/05/22 16:25 AB [id number]) PT-Bed Mobility Assessment Supine to Sit Supine to Sit Standby Assistance PT-Transfer Assessment Sit to and From Stand Sit to and from Stand Contact Guard Assistance,1 Person Assistance,Use of Upper Extremities Equipment Transfer Assistive Device Gait Belt,Front Wheeled Walker Orthotic/Prosthetic Devices or Brace: No Transfers Transfer Destination Chair Transfer Technique Stand Step Pivot Transfer Ability Level of Assist Contact Guard Assistance Comments Mobility Comments BP: 144/70 O2 sat: 96% HI: 86. completed supine to sit SBA with HOB elevated to ~ 30 deg and pt used bed rail to assist. HI increased to 224bpm and remained ~ 105-130s for > 30 secs and back down to 80s. O2 sat: ~ 91% but increases to 95% after resting . no c/o dizziness/ lightheadedness/SOB. completed sit to stand CGA and able to stand SBA using FWW. HI increased to ~ 168 but decreases down to 90-120s. completed step transfer to chair using FWW CGA. pt agreed to stay up on the chair . positioned on the chair. call light and table placed within reach. Ambulation not attempted due to increase HI/A -fib. nurse aware. HI sitting on chair at rest: 85-89 O2 sat: 95% PT-Balance Assessment Sitting Balance and Reactions Static Sitting Balance Ability Normal Dynamic Sitting Balance Ability Good Standing Balance and Reactions Static Standing Balance Ability Fair Dynamic Standing Balance Ability Fair Device Used FWW M5 PT-IP Objective Assessments Start: 08/05/22 16:11 Freq: NEEDED Status: Active Protocol: Document 08/05/22 15:25 AB (Rec: 08/05/22 16:25 AB [id number]) Orientation Orientation/Cognition Level of Alertness Alert Orientation Name,Age,Birthday,Month,Date, Year,Day of Week,Place, Situation Language Function Ability No Deficits Noted Safety Awareness Understands Safety Issues Memory Description No Deficits Noted Gross Range of Motion Lower Extremity ROM Assessment Within Functional Limits Strength Lower Extremity Strength Assessment Within Functional Limits Muscle Tone Muscle Tone WNL Yes M6 PT-IP Treatment Start: 08/05/22 16:11 Freq: NEEDED Status: Active Protocol: Document 08/05/22 15:25 AB (Rec: 08/05/22 16:25 AB [id number]) Physical Therapy Treatment Education Education Provided Safety M7 PT-IP Assessment and Plan Start: 08/05/22 16:11 Freq: NEEDED Status: Active Protocol: Document 08/05/22 15:25 AB (Rec: 08/05/22 16:25 AB [email or web address]) PT Summary Assessment and Plan Potential Rehabilitation Potential Fair Status of Condition at Evaluation Unstable Summary Impairments Balance,Bed Mobility,Transfers ,Gait,Activity Tolerance Assessment Summary Pt s/p fall and admitted for UTI and A-fib. pt HI increases to 220s with bed mobility and 160s with sit to stand. No ambulation completed today due to increase HI and activity limited due to this. pt plans to go home with family to assist her. will continue to assess progress. Goals Bed Mobility Goal Independent Transfer Goal Independent,Front Wheeled Walker Gait Goal Independent,Front Wheel Walker Gait Distance 200 Other Goals improve transfers and ambulation using quad cane 300 ft mod I Days to Meet Goals 10 Frequency of Treatment Frequency Of Treatment Once a Day Treatment Plan Physical Therapy Treatment Plan Bed Mobility Training,Transfer Training,Gait Training, Therapeutic Exercise,Balance Retraining,Discharge Planning, Hot or Cold Pack,Neuromuscular Re-ed,Coordination Retraining Precautions Other Precautions HI Recommendations To Nursing Amount of Assist Needed 1 Person Assist Discharge Recommendations PT Discharge Recommendations Home with Assistance Transportation Needs at Discharge Private Vehicle
--- NOTE | 2022-08-05 16:44 | P.PN_ITS ---
Subjective Subjective Interval history: Feeling good and pleased that her heart rate is being better controlled. Was stopped in May on her apixaban. We will restart. This was discussed with the patient. Also discussed switching to a longer-acting metoprolol and patient is in agreement to this. Once stable on both of these the patient can be discharged and likely tomorrow. Exam Vital Signs (past 8 hours): - 08/05/22 09:00 08/05/22 09:01 08/05/22 09:01 Temperature Pulse Rate 99 H 105 H Respiratory Rate 22 22 Blood Pressure 129/78 Pulse Oximetry 94 94 Oxygen Delivery Method 08/05/22 10:00 08/05/22 10:00 08/05/22 10:00 Temperature Pulse Rate 102 H Respiratory Rate 18 Blood Pressure 136/90 Pulse Oximetry 94 Oxygen Delivery Method Room Air 08/05/22 11:00 08/05/22 11:00 08/05/22 12:22 Temperature Pulse Rate 121 H 102 H Respiratory Rate 26 H Blood Pressure 138/87 117/70 Pulse Oximetry 96 Oxygen Delivery Method 08/05/22 12:00 08/05/22 12:00 08/05/22 12:30 Temperature Pulse Rate 130 H Respiratory Rate 15 Blood Pressure 117/70 132/84 Pulse Oximetry 95 Oxygen Delivery Method 08/05/22 12:30 08/05/22 13:09 08/05/22 12:45 Temperature 97.4 F L Pulse Rate 106 H Respiratory Rate 22 Blood Pressure 129/71 Pulse Oximetry 94 Oxygen Delivery Method 08/05/22 12:45 08/05/22 13:00 08/05/22 13:00 Temperature Pulse Rate 118 H 102 H Respiratory Rate 29 H 21 Blood Pressure 134/78 Pulse Oximetry 93 95 Oxygen Delivery Method 08/05/22 14:00 08/05/22 13:15 08/05/22 13:15 Temperature Pulse Rate 83 Respiratory Rate 16 Blood Pressure 131/88 Pulse Oximetry 94 Oxygen Delivery Method Room Air 08/05/22 13:30 08/05/22 13:30 08/05/22 13:45 Temperature Pulse Rate 85 Respiratory Rate 17 Blood Pressure 118/65 136/71 Pulse Oximetry 91 Oxygen Delivery Method 08/05/22 13:45 08/05/22 14:00 08/05/22 14:00 Temperature Pulse Rate 79 83 Respiratory Rate 15 14 Blood Pressure 139/64 Pulse Oximetry 93 94 Oxygen Delivery Method 08/05/22 14:15 08/05/22 14:15 08/05/22 14:30 Temperature Pulse Rate 83 Respiratory Rate 15 Blood Pressure 123/60 114/65 Pulse Oximetry 93 Oxygen Delivery Method 08/05/22 14:30 08/05/22 14:45 08/05/22 14:45 Temperature Pulse Rate 83 80 Respiratory Rate 15 15 Blood Pressure 114/62 Pulse Oximetry 93 93 Oxygen Delivery Method Oxygen Delivery Method Room Air Narrative Exam Narrative: GEN: no acute distress HEENT: moist mucous membranes, PERRL NECK: trachea midline, no JVD CV:? irregularly irregular, no murmurs PULM: Mild bibasilar rales ABD: soft, nontender, nondistended, no organomegaly EXT: warm and well perfused with no edema NEURO: awake, alert, oriented, no focal deficits Objective Labs 08/05/22 05:00 08/05/22 05:00 Labs: Laboratory Results - last 24 hr 08/05/22 08/05/22 08/05/22 05:00 05:00 05:00 WBC 4.7 RBC 4.44 Hgb 12.6 Hct 37.0 MCV 83.3 MCH 28.3 MCHC 33.9 RDW 25.8 H Plt Count 144 L Neut % (Auto) 73.3 Lymph % (Auto) 14.6 L [place] % (Auto) 10.3 Eos % (Auto) 1.3 L Baso % (Auto) 0.5 Neut # (Auto) 3500 Lymph # (Auto) 700 L [place] # (Auto) 500 Eos # (Auto) 100 Baso # (Auto) 0 RBC Morphology See below Poikilocytosis 1+ H Anisocytosis 2+ H PT INR Sodium 132 L Potassium 4.2 Chloride 97 L Carbon Dioxide 28 BUN 13 Creatinine 0.57 Estimated GFR > 60 BUN/Creatinine Ratio 22.8 H Glucose 125 H Calcium 8.2 L Magnesium 2.0 08/05/22 05:40 WBC RBC Hgb Hct MCV MCH MCHC RDW Plt Count Neut % (Auto) Lymph % (Auto) [place] % (Auto) Eos % (Auto) Baso % (Auto) Neut # (Auto) Lymph # (Auto) [place] # (Auto) Eos # (Auto) Baso # (Auto) RBC Morphology Poikilocytosis Anisocytosis PT 13.2 H INR 1.2 Sodium Potassium Chloride Carbon Dioxide BUN Creatinine Estimated GFR BUN/Creatinine Ratio Glucose Calcium Magnesium [facility] Medical History Anxiety Depression Easy bruisability GERD (gastroesophageal reflux disease) HLD (hyperlipidemia) HTN (hypertension) Hypothyroidism Seasonal allergies TIA (transient ischemic attack) (02/2020) Wrist fracture (01/2019) Surgical History History of bladder surgery (2003) History of hip surgery (04/2020) Hx of bilateral cataract extraction Hx of cholecystectomy (12/2019) Social History household members: family Smoking Status: Former smoker alcohol intake: former Assessment & Plan Assessment & Plan narrative: # atrial fibrillation with RVR -patient unable to take her home metoprolol due to nausea from bactrim, HR 150's in ED -maxed out dilt drip without improvement in HR -switch to IV amio with loading dose -continue home metoprolol -had echo on 05/27/22 at [facility] which showed EF 55-60%, severely dilated LA, RA mod dilated and no focal WMA's -TSH mildly elevated at 8.11 -patient only on aspirin due to history of GIB with eliquis, continue aspirin daily -if IV amio fails will need transfer for DINAH cardioversion -needed an extra dose of digoxin 0.5 mg to settled today near the end of the amiodarone infusion. -now stable atrial fibrillation in the low 80s. We will add apixaban and switch to long-acting metoprolol at a higher dose and than she was on previously # uncomplicated UTI -continue rocephin x3 days -urine culture with pansensitive E. coli -we will complete treatment tomorrow. # SOB and weakness -not hypoxic, on room air -CXR with small left pleural effusion -start lasix 20mg IV daily -PT/OT evals # HTN -continue home amlodipine # HLD -continue home lipitor # hypothyroidism -continue home synthroid -check TSH -elevated. Free T4 is normal. We will assess free T3. # GERD -continue home PPI # insomnia and depression -hold home trazodone and lexapro due to QT prolongation with levaquin (however p atient not on levaquin currently) Follow clinically and labs. Code status is full code. COVID negative. DVT prophylaxis with Lovenox. Proxy is daughter Meenu. Quality VTE Deep Vein Thrombosis/Pulmonary Embolism Present on Admission: No
[2022-08-05] MEDS: ATORVASTATIN 20 MG TABLET 40 MG PO (20:51)
[2022-08-05] MEDS: METOPROLOL ER 50 MG TABLET 100 MG PO (20:51)
[2022-08-05] MEDS: APIXABAN 5 MG TABLET PO (20:51)
[2022-08-05] MEDS: LORazepam 0.5 MG TABLET PO (20:57)
[2022-08-06] VITALS (23 sets, daily range): BP systolic 126–170; BP diastolic 71–106; PULSE 70–143; RESP 13–32; TEMP 36.4–36.9; O2SAT 91–98
[2022-08-06 04:23] LABS: Add Manual Diff / Slide Review NO; Basophils Absolute Auto 0 /uL (0-100); Basophils Percent Auto 0.2 % (0-2); Eosinophils Absolute Auto 100 /uL (0-450); Hematocrit 35.1 % (36-46); Lymphocytes Absolute Auto 900 /uL (1100-4500); Lymphocytes Percent Auto 20.5 % (25-40); Mean Corpuscular HGB Conc 34.1 % (30-36); Mean Corpuscular Hemoglobin 28.4 PG (26-34); Mean Corpuscular Volume 83.1 fL (80-100); Monocytes Absolute Auto 400 /uL (0-900); Monocytes Percent Auto 9.7 % (3-14); Neutrophils Absolute Auto 2900 /uL (1500-7000); Neutrophils Percent Auto 66.6 % (50-75); Platelet Count 175 X10^3/uL (150-400); Red Blood Cell Count 4.23 X10^6/uL (4.0-5.2); Red Cell Distribution Width 25.5 % (11.6-14.8); White Blood Cell Count 4.4 X10^3/uL (4.5-11.0)
[2022-08-06 04:29] LABS: Blood Urea Nitrogen 12 mg/dL (7-17); Calcium 8.3 mg/dL (8.4-10.2); Carbon Dioxide 30 mmol/L (22-32); Chloride 97 mmol/L (98-107); Estimated Glomerular Filt Rate > 60 mL/min (>60); Glucose 103 mg/dL (80-110); HEMOLYSIS < 15 (0-50); Potassium 3.8 mmol/L (3.4-5.1); Sodium 131 mmol/L (137-145)
[2022-08-06 04:51] LABS: Free T3, Triiodothyronine Free 1.91 pg/mL (2.77-5.27)
[2022-08-06 06:02] LABS: Anisocytosis 2+; Poikilocytosis 1+
[2022-08-06] MEDS: LEVOTHYROXINE 75 MCG TABLET 150 MCG PO (06:34)
[2022-08-06] MEDS: PANTOPRAZOLE DR 40 MG TABLET PO (06:34)
[2022-08-06] MEDS: METOPROLOL ER 50 MG TABLET 100 MG PO (08:39)
[2022-08-06] MEDS: APIXABAN 5 MG TABLET PO (08:40)
[2022-08-06] MEDS: AMLODIPINE 5 MG TABLET PO (08:40)
[2022-08-06] MEDS: ASPIRIN EC 81 MG TABLET PO (08:40)
[2022-08-06] MEDS: FUROSEMIDE 20 MG/2 ML VIAL IV (08:40)
--- NOTE | 2022-08-06 14:42 | PM.DS.1 ---
History of Present Illness History of Present Illness Date Patient Seen: 08/06/22 Chief complaint: gen weakness/ GLF Discharge Providers Provider Date of admission: 08/03/22 15:25 Discharge Date: 08/06/22 Primary care physician: Lizzeth Kendall PA-C Consults: 08/03/22 18:19 Consult to Occupational Therapy Evaluate & Treat Comment: Physician Instructions: Evaluate and treat Consult to Physical Therapy Evaluate & Treat Comment: Physician Instructions: Evaluate and Treat Discharge provider: Winter Chamorro MD Summary Hospital Course Discharge Diagnosis: Atrial fibrillation with RVR Uncomplicated UTI SOB and weakness Nausea and vomiting secondary to home medication of Bactrim HTN HLD Hypothyroidism with inadequate replacement GERD Insomnia Depression Other comorbidities/past medical history: Seasonal allergies TIA (transient ischemic attack) (02/2020) Wrist fracture (01/2019) History of bladder surgery (2003) History of hip surgery (04/2020) Hx of bilateral cataract extraction Hx of cholecystectomy (12/2019) Hospital Course: Maddi Baumann is a 76yo F with PMH of A-fib not on anticoag due to GI bleed in May 2022 (never restarted), HTN, HLD, hypothyroidism, TIA, GERD, and obesity who presents with fall at home and found to be in A-fib RVR. Patient was seen in the ED a few days prior and found to have a UTI so discharged on po bactrim. She then developed nausea from the medication which didn't allow her to take her home metoprolol or any other meds. She then had a fall at home while stooping down to feed her dog. She represented to the ED with ongoing nausea and found to be tachy to 150's. Xrays of right knee were normal. Cardiology called by ED who recommended a dilt drip and stopping her home metoprolol. Patient was placed on diltiazem drip at 10 mg per hour. Her nausea/vomiting began to settle and she was able to intake of food. She also had some SOB and ongoing weakness. Denies CP, abd pain, dysuria, or diarrhea. Urinary tract infection was treated with ceftriaxone 1 g IV daily for 3 days. Follow-up urine culture was negative. However the diltiazem drip did not take care of her RVR and the patient was initiated on a amiodarone infusion as well as metoprolol immediate release mg every 6 hours. Again there was difficulty with control of her RVR and prior to the discontinuation of the amiodarone patient was also given digoxin 0.5 mg IV 1 dose. She then began to settle in the mid 80s as her continued rate. Was reinitiated on apixaban 5 mg b.i.d. and advised not to take any further ibuprofen. Also the patient was transitioned to metoprolol succinate 100 mg b.i.d. by the following morning she continued to be stable and discharge plans were put in place. TSH was elevated and free T3 was low during the hospital stay and the patient's levothyroxine was increased to 175 mcg per day. She should had follow-up of TSH and free T4 and free T3 in 4 weeks to ensure stability. Echocardiogram was not done during the hospital stay and the patient needs this is an outpatient. Status at Discharge Cognitive/behavioral status at discharge: oriented Functional status at discharge: independent ambulation Overall status at discharge: patient is back to baseline Time Spent with Patient Time spent: Greater than 30 minutes Exam Vital Signs (past 8 hours): - 08/06/22 08:13 08/06/22 07:00 08/06/22 07:00 Temperature 98.1 F Pulse Rate 70 73 Respiratory Rate 26 H 13 Blood Pressure 169/83 H 140/80 Pulse Oximetry 97 93 Oxygen Flow Rate 0 08/06/22 08:00 08/06/22 08:06 08/06/22 08:06 Temperature Pulse Rate 75 80 Respiratory Rate 32 H 22 Blood Pressure 169/83 H Pulse Oximetry 97 Oxygen Flow Rate 08/06/22 08:39 08/06/22 10:37 08/06/22 12:01 Temperature 98.5 F Pulse Rate 83 85 Respiratory Rate Blood Pressure 169/83 H 154/83 H Pulse Oximetry Oxygen Flow Rate 08/06/22 09:00 08/06/22 09:01 08/06/22 09:01 Temperature Pulse Rate 85 85 Respiratory Rate 26 H 24 Blood Pressure 154/83 H Pulse Oximetry 95 94 Oxygen Flow Rate 08/06/22 10:00 08/06/22 11:00 08/06/22 12:00 Temperature Pulse Rate 81 143 H 83 Respiratory Rate 19 27 H 20 Blood Pressure Pulse Oximetry 95 95 Oxygen Flow Rate 08/06/22 13:00 08/06/22 14:00 Temperature Pulse Rate 87 86 Respiratory Rate 26 H 22 Blood Pressure Pulse Oximetry Oxygen Flow Rate Oxygen Delivery Method Room Air Oxygen Flow Rate 0 Objective Labs 08/06/22 04:00 08/06/22 04:00 Labs: Laboratory Results - last 24 hr 08/06/22 08/06/22 08/06/22 04:00 04:00 04:00 WBC 4.4 L RBC 4.23 Hgb 12.0 Hct 35.1 L MCV 83.1 MCH 28.4 MCHC 34.1 RDW 25.5 H Plt Count 175 Neut % (Auto) 66.6 Lymph % (Auto) 20.5 L [place] % (Auto) 9.7 Eos % (Auto) 3.0 Baso % (Auto) 0.2 Neut # (Auto) 2900 Lymph # (Auto) 900 L [place] # (Auto) 400 Eos # (Auto) 100 Baso # (Auto) 0 RBC Morphology See below Poikilocytosis 1+ H Anisocytosis 2+ H Sodium 131 L Potassium 3.8 Chloride 97 L Carbon Dioxide 30 BUN 12 Creatinine 0.63 Estimated GFR > 60 BUN/Creatinine Ratio 19.0 Glucose 103 Calcium 8.3 L Free T3 1.91 L PFSH Medical History Anxiety Depression Easy bruisability GERD (gastroesophageal reflux disease) HLD (hyperlipidemia) HTN (hypertension) Hypothyroidism Seasonal allergies TIA (transient ischemic attack) (02/2020) Wrist fracture (01/2019) Surgical History History of bladder surgery (2003) History of hip surgery (04/2020) Hx of bilateral cataract extraction Hx of cholecystectomy (12/2019) Social History household members: family Smoking Status: Former smoker alcohol intake: former Discharge Plan Discharge Plan Patient Disposition: Home Discharge orders & Medications Prescriptions: New Eliquis 5 mg Tablet 5 mg PO BID Qty: 60 0RF furosemide 40 mg tablet 40 mg PO DAILY Qty: 30 0RF Rx Instructions: start August 07, 2022. metoprolol succinate 50 mg Tablet Extended Release 24 Hr 100 mg PO BID Qty: 60 0RF levothyroxine [Synthroid] 75 mcg Tablet 175 mcg PO DAILY@0600 Qty: 30 0RF potassium chloride 20 mEq tablet extended release 20 meq PO DAILY Qty: 30 0RF Rx Instructions: start on August 07, 2022 Continued atorvastatin 40 mg Tablet 40 mg PO DAILY sumatriptan succinate 100 mg Tablet 100 mg PO DAILY PRN (Reason: Headaches) Rx Instructions: take 1 tab at onset of headache; if no relief, may repeat 1 tab after at least 2 hrs; max = 2 tabs/24 hrs amlodipine 5 mg Tablet 5 mg PO DAILY aspirin 81 mg Tablet,Delayed Release (Dr/Ec) 81 mg PO DAILY omeprazole 20 mg Capsule,Delayed Release(Dr/Ec) 40 mg PO QAM escitalopram oxalate 20 mg Tablet 20 mg PO DAILY cetirizine [Zyrtec] 10 mg Tablet 10 mg PO DAILY PRN (Reason: Seasonal allergies) acetaminophen 500 mg capsule 500 mg PO Q4H MDD Max 3000 mg per day PRN (Reason: fever or pain) Qty: 90 0RF Discontinued metoprolol succinate 50 mg Tablet Extended Release 24 Hr 25 mg PO BID levothyroxine [Synthroid] 150 mcg Tablet 150 mcg PO SEEINSTR Rx Instructions: Pt takes 5 days, then off x 2 days ibuprofen 400 mg Tablet 400 mg PO Q6HR MDD Max 2400 mg per day PRN (Reason: Pain/inflammation) Qty: 90 0RF nitrofurantoin monohyd/m-cryst [Macrobid] 100 mg capsule 100 mg PO Q12H 7 Days Qty: 14 0RF Rx Instructions: must administer with a meal/food Follow up/Referrals: Lizzeth Kendall PA-C [Primary Care Provider] - Visit Report/Discharge Packet Instructions: DI for Atrial Fibrillation, Apixaban Stand Alone Forms: Patient Portal/API, Stroke Signs & Symptoms Discharge Data Primary Care Provider: Lizzeth Kendall Discharges patient from system. Discharge Date/Time: 08/06/22 15:15 Quality VTE Deep Vein Thrombosis/Pulmonary Embolism Present on Admission: No
--- NOTE | 2022-08-06 15:26 | PC.NURSE ---
Discharge: Pt education provided to pt, questions answered. Pt expressed understanding, pt will make follow up appt tomorrow, Sunday morning. Midline removed, telemetry removed, belongings given to pt. Pt wheeled via wheelchair by this RN to private vehicle with adult child.
== END 2022-08-06 15:15 | disposition home or self-care (01) | DRG 309 ==
LOC: ED 09:50 → AC 15:27 → ICU 15:45
PROVIDERS: Neuromusculoskeletal Medicine, Sports Medicine; Nurse Practitioner Family; Admitting Provider Student in an Organized Health Care Education/Training Program; Emergency Provider Emergency Medicine; PCP Physician Assistant; Referring Provider Emergency Medicine; Visit Provider Student in an Organized Health Care Education/Training Program
DX: I48.91 Unspecified atrial fibrillation (principal); J90 Pleural effusion, not elsewhere classified; N39.0 Urinary tract infection, site not specified; B96.20 Unspecified Escherichia coli [E. coli] as the cause of diseases classified elsewhere; I10 Essential (primary) hypertension; E78.5 Hyperlipidemia, unspecified; E03.9 Hypothyroidism, unspecified; K21.9 Gastro-esophageal reflux disease without esophagitis; R11.2 Nausea with vomiting, unspecified; M25.561 Pain in right knee; Z87.891 Personal history of nicotine dependence; Z20.822 Contact with and (suspected) exposure to COVID-19; I50.9 Heart failure, unspecified
CPT/HCPCS: 36415; 70450; 71045; 71275; 73562; 80048; 80053; 81001; 82550; 83605; 83690; 83735; 83880; 84145; 84439; 84443; 84481; 84484; 85007; 85025; 85610; 85730; 87040; 87077; 87086; 87186; 87635; 87797; 93005; 93307; 96365; 96374; 96376; 97163; 99284; 99285; 99291; C9803; J0282; J0696; J1160; J1650; J1940; J1956; J2405; Q9967

== ENCOUNTER → 2024-01-14 12:41 | Outpatient (CLI) | payer MEDICARE, OTHER, SELFPAY ==
[2022-08-03 15:30] VITALS: BMI 33.0
--- NOTE | 2024-01-14 12:44 | DI.ECHO.S_ITS ---
[facility] : : [id number] : : [place] : : [id number] : : Phone: [phone] Echocardiogram Report + + :Name: LYNNE ARTHUR Study Date: 01/14/2024 Height: 68 in : :[facility] ReadingLocation: Weight: 210 lb : : Gender: Female BSA: 2.1 m2 : :: 1945 Age: 78 yrs BP: 127/87 mmHg: :Reason For Study: SHORTNESS OF BREATH : :Ordering Physician: RADHA, : :DYANA Verdugo Performed By: Mk Robbins : :Referring: DYANA CRENSHAW : + + Interpretation Summary The ejection fraction is estimated to be 55-60%. Diastolic function could not be accurately assessed due to unobtainable data. The left atrium is moderately dilated. The right ventricle is mildly dilated. The right ventricular systolic function is normal. The right atrium is mild to moderately dilated. There is mild aortic regurgitation. Pulmonary artery pressures cannot be estimated because of the lack of a measurable TR jet velocity. Compared to the prior study dated 08/06/2022, no change. Procedure: A two-dimensional transthoracic echocardiogram with color flow and Doppler was performed. The study quality was technically difficult. Comparison is made with the echocardiogram of 08/06/2022. The patient was in normal sinus rhythm during the exam. Left Ventricle: The left ventricle is normal in size. There is normal left ventricular wall thickness. There is no ventricular septal defect visualized. The ejection fraction is estimated to be 55-60%. Diastolic function could not be accurately assessed due to unobtainable data. Right Ventricle: The right ventricle is mildly dilated. The right ventricular systolic function is normal. Atria: The left atrium is moderately dilated. The right atrium is mild to moderately dilated. There is no Doppler evidence for an atrial septal defect. Mitral Valve: The mitral valve is normal in structure and function. There is trace mitral regurgitation. Aortic Valve: The aortic valve is trileaflet. The aortic valve opens well. There is no aortic valve stenosis. There is mild aortic regurgitation. Tricuspid Valve: The tricuspid valve is normal in structure and function. No tricuspid regurgitation. Pulmonary artery pressures cannot be estimated because of the lack of a measurable TR jet velocity. Pulmonic Valve: The pulmonic valve is normal in structure and function. There is mild to moderate pulmonic regurgitation. Great Vessels: The aortic root is normal size. The dimensions of the ascending aorta are normal. The pulmonary artery is normal size. The inferior vena cava was not visualized. Pericardium/ Pleura There is no pericardial effusion. There is no pleural effusion. MMode/2D Measurements & Calculations LVIDd: 4.8 cm LVOT diam: 1.9 cm LVIDs: 3.0 cm Ao root diam: 3.1 cm FS: 36.8 % asc Aorta Diam: 3.2 cm EPSS: 0.98 cm Ao Arch Diam (Prox Trans): 3.3 cm IVSd: 0.75 cm LVPWd: 0.74 cm LV macias. diameter/BSA (cm/m^2): 2.3 LV sys. diameter/BSA (cm/m^2): 1.4 LA A2 area: 29.0 cm2 RA long axis: 5.5 cm LA A4 area: 29.3 cm2 RA area: 19.7 cm2 LA length (vol): 6.5 cm RA vol: 60.0 ml LA vol: 110.9 ml RA : 28.8 ml/m2 LA vol index: 53.1 ml/m2 RVD1 (basal): 3.9 cm RVD2 (mid): 3.2 cm TAPSE: 2.5 cm Doppler Measurements & Calculations Ao V2 max: 104.6 cm/sec LVOT Max Jaziel: 83.2 cm/sec Ao V2 mean: 68.3 cm/sec LV V1 max P.8 mmHg Ao max P.4 mmHg LV V1 VTI: 20.5 cm Ao mean P.1 mmHg CJ(I,D): 2.5 cm2 Ao V2 VTI: 22.9 cm CJ(V,D): 2.2 cm2 sev ratio: 0.90 CJ indexed to BSA (cm^2/m^2): 1.2 MV E max jaziel: 61.7 cm/sec PA V2 max: 77.5 cm/sec MV A max jaziel: 44.8 cm/sec PA V2 mean: 49.6 cm/sec MV E/A: 1.4 PA mean P.1 mmHg Med Peak E' Jaziel: 6.4 cm/sec PA pr(Accel): 51.6 mmHg E/E' med: 9.7 Lat Peak E' Jaziel: 10.4 cm/sec E/E' lat: 5.9 E/e' average: 7.8 MV dec time: 0.18 sec SVLVOT): 56.1 ml Reading Physician:04:55 PM
== END ==
PROVIDERS: PCP Nurse Practitioner Family; Referring Provider Internal Medicine Cardiovascular Disease; Visit Provider Internal Medicine Cardiovascular Disease
DX: I35.1 Nonrheumatic aortic (valve) insufficiency (principal); I37.1 Nonrheumatic pulmonary valve insufficiency; R06.02 Shortness of breath
CPT/HCPCS: 93306